=== PATIENT | male | born 1950 | race Caucasian/White ===

== ENCOUNTER → 2018-03-28 | Outpatient (CLI) | payer SELFPAY ==
[~2018-03-28] MED LIST: CATHETER FLUSH 10 ML SYR IV PRN; IOHEXOL 350 MG/ML 100 ML (OMNIPAQUE 350) VIAL IV ONE; NS 250 ML (IVPB) BAG IV ONE
--- NOTE | 2018-03-28 14:28 | Diagnostic Imaging Report ---
PROCEDURE: CT pelvis with contrast. TECHNIQUE: Oral and intravenous contrast were administered with pelvic CT performed. DATE: March 28, 2018. INDICATION: 67-year-old male, prostatitis. Pain in the region of the prostate gland. COMPARISON: November 26, 2014. FINDINGS: The visualized segments of the intestinal tract are not distended. There is a moderate-volume colonic stool. There is no identified free intraperitoneal air. There is no identified drainable fluid collection. There is no large-volume free pelvic fluid. There are atherosclerotic calcifications. There is no identified abnormally enlarged lymph node within the visualized portions of the abdomen or pelvis, which meets CT size criteria for adenopathy. The prostate gland is not well evaluated on CT. There is no identified fluid collection within or subjacent to the prostate gland. The urinary bladder is underdistended and not well evaluated. Partially visualized portions of the liver and kidneys are unremarkable in appearance. There is chondrocalcinosis. 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 There is no identified acute bone abnormality. IMPRESSION: 1. Limited evaluation of the prostate gland on CT. There is no identified fluid collection within or subjacent to the prostate gland or otherwise noted. 2. No acute abnormality identified within the pelvis. 3. Moderate-volume colonic stool. 4. The urinary bladder is underdistended and not well evaluated. Dictated by: Dictated on workstation # [id number]
== END ==
LOC: RAD 12:44
PROVIDERS: ATTEND Nurse Practitioner Community Health
DX: N41.1 Chronic prostatitis (principal)
CPT/HCPCS: 72193

== ENCOUNTER 2018-06-01 00:36 | Emergency (ER) | payer SELFPAY ==
[~2018-06-01] VITALS: Ht 180.3 cm; Wt 63.5 kg
--- OUTSIDE RECORDS SUMMARY | 2018-06-01 00:41 | XMS REPORT ---
Author Author KAMLA MAS Organization [employer] Address Unknown Phone Unavailable Care Team Providers Care Ambulatory Service Representative Name Role Phone KAMLA MAS CP Unavailable Allergies, Adverse Reactions, Alerts Substance Reaction Event Type Ampicillin Info Not Available Drug Allergy Problems Problem Type Condition ICD-9 Code Onset Dates Condition Status Problem External hemorrhoids without mention of complication 455.3 Active Problem Contact or exposure to other viral diseases V01.79 Active Problem Screening examination for venereal disease V74.5 Active Assessment Hypertrophy (benign) of prostate without urinary obstruction and other lower urinary tract symptoms [LUTS] 600.00 Active Problem Impotence of organic origin 607.84 Active Problem Hypertrophy (benign) of prostate without urinary obstruction and other lower urinary tract symptoms [LUTS] 600.00 Active 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 Problem Unspecified prostatitis 601.9 Active Problem Pain in joint, shoulder region 719.41 Active Problem Family history of unspecified malignant neoplasm V16.9 Active Problem Unspecified orchitis and epididymitis 604.90 Active Medications Medication Code System Code Instructions Start Date End Date Status Dosage Flomax [facility] 56697957937 0.4 MG 1 capsule by Oral route 1 time per day Procedures Procedure Coding System Code Date COMPREHEN METABOLIC PANEL CPT-4 44344 Jun 04, 2015 VENIPUNCT, ROUTINE* CPT-4 39214 Jun 04, 2015 ASSAY OF PSA, TOTAL CPT-4 52674 Jun 04, 2015 Office Visit, Est Pt., Level 3 CPT-4 20629 Jun 04, 2015 Vital Signs Date/Time: Jun 04, 2015 Temperature 97.6 F Weight 143.8 lbs Height 73 in BMI 18.97 Index Blood Pressure Diastolic 78 mmHg Blood Pressure Systolic 120 mmHg Cardiac Monitoring Heart Rate 70 bpm Results Name Result Date Reference Range Unit Abnormality Flag PSA Summary Purpose [employer] Submission
--- OUTSIDE RECORDS SUMMARY | 2018-06-01 00:41 | XMS REPORT ---
Author Author CLEO DUQUE Organization [facility] Address [address] [place] [address] Care Team Providers Care Resizer Operator Name Role Phone CLEO DUQUE Unavailable PROBLEMS Type Condition ICD9-CM Code XKU31-MM Code Onset Dates Condition Status SNOMED Code Problem Prostatitis, chronic N41.1 Active 00074958 Problem Benign prostatic hyperplasia, unspecified whether lower urinary tract symptoms present N40.0 Active 270922897 Problem Arthritis M19.90 Active 7242453 Problem Benign non-nodular prostatic hyperplasia with lower urinary tract symptoms N40.1 Active 038025803 ALLERGIES Substance Reaction Event Type Date Status Penicillin V Potassium rash Drug Allergy January, Active ENCOUNTERS Encounter Location Date Diagnosis [place] [address] [id number] [place] [address]22 Apr, [address] [address] Feb, Prostatitis, chronic N41.1 and Weight loss R63.4 [place] [id number] [place] [address] 25395- 9714 January, Benign prostatic hyperplasia, unspecified whether lower urinary tract symptoms present N40.0 ; Acute prostatitis N41.0 and Exposure to hepatitis C Z20.5 [facility] IN [place] [id number] [place] [address]8712 -5825 Aug, URI, acute J06.9 and Cough in adult patient R05 [facility] IN [place] [id number] [place] [address] 90733 -7880 Apr, Encounter for immunization Z23 and Laceration without foreign body of right little finger without damage to nail, initial encounter S61.216A [facility] [place] [id number] [place] [address] 73842 -7091 Feb, Left wrist pain M25.532 [facility] IN [facility] [id number] [place] [address] 86391 -0339 Nov, Arthritis M19.90 [facility] [id number] [place] [address] 45847- 9225 Jun, Benign non-nodular prostatic hyperplasia with lower urinary tract symptoms N40.1 and Prostatitis, unspecified prostatitis type N41.9 [place] [id number] [place] [address] 12251- 4811 08 May, 2016 Prostatitis, unspecified prostatitis type N41.9 [place] [id number] [place] [address] 50603- 5244 Aug, Restless legs syndrome G25.81 ; Myoclonus G25.3 and Folate deficiency E53.8 [place] [address] [address] Aug, [facility] [id number] [place] [address] 36689 -0326 Jul, Ankle pain, right M25.571 [place] [id number] [place] [address] 88704- 0006 Jul, Benign non-nodular prostatic hyperplasia with lower urinary tract symptoms N40.1 and Restless leg syndrome G25.81 [place] [id number] [place] [address] 19030- 9460 16 May, 2015 Hypertrophy (benign) of prostate without urinary obstruction and other lower urinary tract symptoms [LUTS] 600.00 [place] [id number] [place] [address] 73287- 9331 January, [place] [id number] [place] [address] 05671- 7569 14 Dec, 2014 [place] [id number] [place] [address] 92626- 7982 Dec, [facility] [place] [facility] [address] [id number] [place] [address] 4[address] Oct, 2014 [facility] [place] [facility] [address] [id number] [place] [address] Oct, [facility] [place] [facility] [address] [id number] [place] [address] 0606 Oct, [facility] [place] [facility] [address] [id number] [place] [address]- 1382 Oct, [facility] [place] [facility] [address] [id number] [place] [address] 8362 Oct, [facility] [place] [facility] [address] [id number] [place] [address] 2000 Sep, [facility] [place] [facility] [address] [id number] [place] [address]- 4432 Sep, [facility] [place] [facility] [address] [id number] [place] [address]- 2702 Sep, [facility] [place] [facility] [address] [id number] [place] [address]- 9864 Sep, [facility] [place] [facility] [address] [id number] [place] [address]- 8067 Aug, [facility] [place] [facility] [address] [id number] [place] [address] 4845 Aug, [facility] [place] [facility] [address] [id number] [place] [address]- 8303 Aug, [facility] [place] [facility] [address] [id number] [place] [address] 9972 Aug, [facility] [place] [facility] [address] [id number] [place] [address]- 9808 Jul, [facility] [place] [facility] [address] [id number] [place] Jul, [facility] [place] [facility] [address] [id number] [address] Apr, [facility] [id number] Apr, [facility] [id number] [address] Apr, [facility] [id number] [address] Apr, [facility] [address] Mar, [facility] [id number] [address] Mar, [facility] [id number] Mar, [facility] [address] [address] Mar, [facility] [id number], [place] [address] Mar, [facility] [id number] [address] 18[address] Mar, IMMUNIZATIONS No Known Immunizations SOCIAL HISTORY Never Assessed REASON FOR VISIT prostate exam [facility] PLAN OF CARE VITAL SIGNS Height 73 in 2018-01-18 Weight 149.7 lbs 2018-01-18 Temperature 97.8 degrees Fahrenheit 2018-01-18 Heart Rate 80 bpm 2018-01-18 Respiratory Rate 20 2018-01-18 BMI 19.75 kg/m2 2018-01-18 Blood pressure systolic 124 mmHg 2018-01-18 Blood pressure diastolic 74 mmHg 2018-01-18 MEDICATIONS Medication Instructions Dosage Frequency Start Date End Date Duration Status Bactrim DS 800-160 MG Orally Twice a day 1 tablet 12h January, Feb, 30 days Active Finasteride 5 mg Orally Once a day 1 tablet 24h January, May, 30 day(s) Active Flomax 0.4 MG 1 capsule by Oral route 1 time per day 24h Active RESULTS No Results PROCEDURES Procedure Date Ordered Result Body Site ASSAY OF PSA, TOTAL January 18, 2018 COMPREHEN METABOLIC PANEL January 18, 2018 COMPLETE CBC W/AUTO DIFF WBC January 18, 2018 No Charge January 18, 2018 INSTRUCTIONS MEDICATIONS ADMINISTERED No Known Medications MEDICAL (GENERAL) HISTORY Type Description Date Medical History Patient denies medical hx Surgical History appendectomy Surgical History tonsillectomy Surgical History Teeth removed
--- OUTSIDE RECORDS SUMMARY | 2018-06-01 00:41 | XMS REPORT | Clinical Summary ---
Author Author [facility] Organization [facility] Address Unknown Phone Unavailable Care Team Providers Care Counter Clerk [employer] Name Role Phone Rudolph Bragg DO Unavailable Yari Antonio MA Unavailable Unavailable Melissa Taylor APRN Unavailable Shun Donohue MD Unavailable Source Comments Some departments are not documenting in the electronic medical record. If you do not see the information that you expected, contact Release of Information in the Health Information Management department at [phone] for further assistance in locating additional records.[facility] Allergies Active Allergy Reactions Severity Noted Date Comments Penicillins HIVES 09/27/2012 Welts too Current Medications Prescription Sig. Disp. Refills Start End Date Status Date amitriptyline (ELAVIL) 50 Take 50 mg by mouth at Active mg tablet bedtime daily. mirtazapine (REMERON) 30 Take 30 mg by mouth at Active mg tablet bedtime daily. levofloxacin (LEVAQUIN) Take 500 mg by mouth Active 500 mg tablet daily. VARDENAFIL HCL (LEVITRA Take by mouth. Active PO) PE/HYDROCOD/ACETAMINOPHEN Take by mouth. Active /CPM ([id number]-ACETAMIN OPHEN PO) finasteride (PROSCAR) 5 Take 5 mg by mouth daily. Active mg tablet Active Problems Problem Noted Date Prostatitis 12/31/2014 Overview: CT Pelvis 11/26/14: prominent prostate and SVs w/o inflammation Scrotal US 09/04/14: trace left hydrocele, otherwise normal exam Family History Medical History Relation Name Comments Brain Tumor Other Hypertension Other Relation Name Status Comments Other Social History Tobacco Use Types Packs/Day Years Used Date Current Every Day Smoker Cigarettes 1 Smokeless Tobacco: Never Used Tobacco Cessation: Ready to Quit: No; Counseling Given: No Alcohol Use Drinks/Week oz/Week Comments Yes 1-2 Standard 0.5 - 1.0 occ drinks or equivalent Sex Assigned at Date Recorded Not on file Last Filed Vital Signs Vital Sign Reading Time Taken Blood Pressure 108/70 12/31/2014 1:15 PM CDT Pulse 78 12/31/2014 1:15 PM CDT Temperature 37.1 C (98.7 F) 03/12/2013 1:56 PM CDT Respiratory Rate - - Oxygen Saturation - - Inhaled Oxygen - - Concentration Weight 68.9 kg (152 lb) 12/31/2014 1:15 PM CDT Height 185.4 cm (6' 1") 12/31/2014 1:15 PM CDT Body Mass Index 20.05 12/31/2014 1:15 PM CDT Plan of Treatment Health Maintenance Due Date Last Done Comments HEPATITIS C SCREENING 1951 PHYSICAL (COMPREHENSIVE) 1958 EXAM PERTUSSIS VACCINE 1962 TETANUS VACCINE 1968 COLORECTAL CANCER 2001 SCREENING SHINGLES RECOMBINANT 2001 VACCINE (1 of 2) ABDOMINAL AORTIC ANEURYSM 2016 SCREENING PNEUMONIA (PCV13/PPSV23) 2016 VACCINES (1 of 2 - PCV13) INFLUENZA VACCINE 06/19/2018 Results Not on filefrom Last 3 Months
--- OUTSIDE RECORDS SUMMARY | 2018-06-01 00:41 | XMS REPORT ---
Author Author CLEO DUQUE Organization [facility] Address [address] [place] [address] Care Team Providers Care Learning Operations Specialist Name Role Phone CLEO DUQUE Unavailable PROBLEMS Type Condition ICD9-CM Code EGN63-PF Code Onset Dates Condition Status SNOMED Code Problem Prostatitis, chronic N41.1 Active 17752443 Problem Benign prostatic hyperplasia, unspecified whether lower urinary tract symptoms present N40.0 Active 820545624 Problem Arthritis M19.90 Active 3149224 Problem Benign non-nodular prostatic hyperplasia with lower urinary tract symptoms N40.1 Active 869685184 ALLERGIES Substance Reaction Event Type Date Status Penicillin V Potassium rash Drug Allergy Feb, Active ENCOUNTERS Encounter Location Date Diagnosis [place] [id number] [place] [address]07[address]778 May, [address] [address] Feb, Prostatitis, chronic N41.1 and Weight loss R63.4 [place] [id number] [place] [address] 47880- 7291 January, Benign prostatic hyperplasia, unspecified whether lower urinary tract symptoms present N40.0 ; Acute prostatitis N41.0 and Exposure to hepatitis C Z20.5 [facility] [address] [place] [id number] [place] [address] -[address]37 Aug, URI, acute J06.9 and Cough in adult patient R05 [facility] [place] [id number] [place] [address] 29625 -4052 Apr, Encounter for immunization Z23 and Laceration without foreign body of right little finger without damage to nail, initial encounter S61.216A [facility] [place] [id number] [place] [address] 39186 -5873 Feb, Left wrist pain M25.532 [facility] [id number] [place] [address] 83312 -1681 Nov, Arthritis M19.90 [facility] [id number] [place] [address] 89517- 2631 Jun, Benign non-nodular prostatic hyperplasia with lower urinary tract symptoms N40.1 and Prostatitis, unspecified prostatitis type N41.9 [place] [id number] [place] [address] 20477- 3837 08 May, 2016 Prostatitis, unspecified prostatitis type N41.9 [place] [id number] [place] [address] 21636- 0328 Aug, Restless legs syndrome G25.81 ; Myoclonus G25.3 and Folate deficiency E53.8 [place] [address] [address] Aug, [facility] [id number] [place] [address] 00462 -7681 Jul, Ankle pain, right M25.571 [place] [id number] [place] [address] 02010- 8367 Jul, Benign non-nodular prostatic hyperplasia with lower urinary tract symptoms N40.1 and Restless leg syndrome G25.81 [place] [id number] [place] [address] 18818- 7868 16 May, 2015 Hypertrophy (benign) of prostate without urinary obstruction and other lower urinary tract symptoms [LUTS] 600.00 [place] [id number] [place] [address]22- 8084 January, [place] [address] [address] [id number] [place] [address] 08865- 0325 14 Dec, 2014 [place] [id number] [place] [address] 66993- 9456 Dec, [facility] [place] [facility] [address] [id number] [place] [address]- 0203 Oct, 2014 [facility] [place] [facility] [address] [id number] [place] [address] Oct, [facility] [place] [facility] [address] [id number] [place] [address]- 2625 Oct, [facility] [place] [facility] [address] [id number] [place] [address]- 9593 Oct, [facility] [place] [facility] [address] [id number] [place] [address]- 7649 Oct, [facility] [place] [facility] [address] [id number] [place] [address]- 0370 Sep, [facility] [place] [facility] [address] [id number] [place] [address]- 6474 Sep, [facility] [place] [facility] [address] [id number] [place] [address]- 3483 Sep, [facility] [place] [facility] [address] [id number] [place] [address]- 5090 Sep, [facility] [place] [facility] [address] [id number] [place] [address]- 1379 Aug, [facility] [place] [facility] [address] [id number] [place] [address]- 5304 Aug, [facility] [place] [facility] [address] [id number] [place] [address]- 8916 Aug, [facility] [place] [facility] [address] [id number] [place] [address]- 0814 Aug, [facility] [place] [facility] [address] [id number] [place] [address]- 2334 Jul, [facility] [place] [facility] [address] [id number] [place] [address] Jul, [facility] [place] [facility] [address] [id number], [place] [address] 0[address] Apr, [facility] [address] [place] [address] [id number] [address] Apr, [facility] [address], [place] [address]- 288[address] Apr, [facility] [address], [place] [address]- [address] Apr, [facility] [address], [place] [address]- [address] Mar, [facility] [address] Mar, [facility] [address], [place] [address]- 7747 Mar, [facility] [address], [place] [address]- 1585 Mar, [facility] [address], [place] [address]- 0485 Mar, [facility] [id number], [place] [address]- 1457 Mar, IMMUNIZATIONS No Known Immunizations SOCIAL HISTORY Never Assessed REASON FOR VISIT Prostate F/U, PT states his "prostate is not any better" -[facility] PLAN OF CARE VITAL SIGNS Height 73 in 2018-03-08 Weight 138.3 lbs 2018-03-08 Temperature 98.7 degrees Fahrenheit 2018-03-08 Heart Rate 72 bpm 2018-03-08 Respiratory Rate 2018-03-08 BMI 18.24 kg/m2 2018-03-08 Blood pressure systolic 130 mmHg 2018-03-08 Blood pressure diastolic 72 mmHg 2018-03-08 MEDICATIONS Medication Instructions Dosage Frequency Start Date End Date Duration Status Flomax 0.4 MG 1 capsule by Oral route 1 time per day 24h Active Finasteride 5 mg Orally Once a day 1 tablet 24h January, May, 30 day(s) Active RESULTS No Results PROCEDURES Procedure Date Ordered Result Body Site COMPREHEN METABOLIC PANEL March 08, 2018 VENIPUNCT, ROUTINE* March 08, 2018 INSTRUCTIONS MEDICATIONS ADMINISTERED No Known Medications MEDICAL (GENERAL) HISTORY Type Description Date Medical History Patient denies medical hx Surgical History appendectomy Surgical History tonsillectomy Surgical History Teeth removed
--- OUTSIDE RECORDS SUMMARY | 2018-06-01 00:42 | XMS REPORT ---
Author Author RENETTA MERRITT Organization 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 559814617 Problem Screening examination for venereal disease V74.5 Active 125643590 Problem Family history of unspecified malignant neoplasm V16.9 Active 603170692 Problem Contact or exposure to other viral diseases V01.79 Active 814554724566284 Problem Arthritis M19.90 Active 6196358 Problem Benign non-nodular prostatic hyperplasia with lower urinary tract symptoms N40.1 Active 138261831 Problem Unspecified prostatitis 601.9 Active 2763936 Problem Unspecified orchitis and epididymitis 604.90 Active 532114669 Problem External hemorrhoids without mention of complication 455.3 Active 06032346 Problem Hypertrophy (benign) of prostate without urinary obstruction and other lower urinary tract symptoms [LUTS] 600.00 Active 144489807 ALLERGIES Substance Reaction Event Type Date Status Penicillin V Potassium rash Drug Allergy Feb, Active SOCIAL HISTORY Never Assessed PLAN OF CARE Activity Details Follow Up prn Reason: VITAL SIGNS Height 73 in 2017-02-20 Weight 140.2 lbs 2017-02-20 Temperature 98.4 degrees Fahrenheit 2017-02-20 Heart Rate 84 bpm 2017-02-20 Respiratory Rate 22 2017-02-20 BMI 18.50 kg/m2 2017-02-20 Blood pressure systolic 132 mmHg 2017-02-20 Blood pressure diastolic 76 mmHg 2017-02-20 MEDICATIONS Medication Instructions Dosage Frequency Start Date End Date Duration Status Flomax 0.4 MG 1 capsule by Oral route 1 time per day 24h Active RESULTS No Results PROCEDURES Procedure Date Ordered Result Body Site X-RAY EXAM OF WRIST February 20, 2017 TORADOL (IM) 60 MG/2ML (UP TO 15 MG) February 20, 2017 THER/PROPH/DIAG INJ, SC/IM February 20, 2017 IMMUNIZATIONS Vaccine Route Administration Date Status TORADOL (IM) 60 MG/2ML (UP TO 15 MG) IM Intramuscular February 20, 2017 Administered MEDICAL (GENERAL) HISTORY Type Description Date Medical History Patient denies medical hx Surgical History appendectomy Surgical History tonsillectomy Surgical History Teeth removed
--- OUTSIDE RECORDS SUMMARY | 2018-06-01 00:42 | XMS REPORT ---
Author Author MOLLY MATHIS [facility] eClinicalWorks Address Unknown Phone Unavailable Care Team Providers Care Banana Ripening Room Supervisor Name Role Phone MOLLY MATHIS Unavailable Allergies, Adverse Reactions, Alerts Substance Reaction Event Type Ampicillin Info Not Available Drug Allergy Problems Problem Type Condition Code Onset Dates Condition Status Problem External hemorrhoids without mention of complication 455.3 Active Problem Contact or exposure to other viral diseases V01.79 Active Problem Screening examination for venereal disease V74.5 Active Assessment Ankle pain, right M25.571 Active Problem Impotence of organic origin 607.84 [...] Instructions Start Date End Date Status Dosage Neurontin [facility] [address]-40 100 MG Orally 2 times a day Jul 25, 2015 1 capsule B-6 Folic Acid [facility] [address]-36 1 mg Orally Once a day Jul 25, 2015 as directed Ibuprofen NDC 0 not defined Flomax [facility] 71242622084 0.4 MG 1 capsule by Oral route 1 time per day Naprosyn [facility] [address]-48 500 MG Orally every 12 hrs, prn Aug 15, 2015 Sep 14, 2015 1 tablet as needed Procedures Procedure Coding System Code Date Office Visit, Est Pt., Level 3 CPT-4 45209 Aug 15, 2015 Pneumati walking boot prefab CPT-4 L4360 Aug 15, 2015 X-RAY EXAM OF ANKLE CPT-4 73036 Aug 15, 2015 Vital Signs Date/Time: Aug 15, 2015 Temperature 98.4 F Weight 148.2 lbs Height 73 in BMI 19.55 Index Blood Pressure Diastolic 80 mmHg Blood Pressure Systolic 112 mmHg Cardiac Monitoring Heart Rate 80 bpm Results No Known Results Summary Purpose eClinicalWorks Submission
--- OUTSIDE RECORDS SUMMARY | 2018-06-01 00:42 | XMS REPORT ---
Author Author [facility]LLY [facility]ARAZA [facility] Address [address] [place] [address] Care Team Providers Care Gin Inspector Name Role Phone KELLY BARRAZA Unavailable PROBLEMS Type Condition ICD9-CM Code NJR85-YZ Code Onset Dates Condition Status SNOMED Code Problem Benign prostatic hyperplasia, unspecified whether lower urinary tract symptoms present N40.0 Active 765216147 Problem Arthritis M19.90 Active 9508547 Problem Benign non-nodular prostatic hyperplasia with lower urinary tract symptoms N40.1 Active 473528464 ALLERGIES Substance Reaction Event Type Date Status Penicillin V Potassium rash Drug Allergy Aug, Active ENCOUNTERS Encounter Location Date Diagnosis [facility] [id number] [place] [address] Feb, [facility] [address] [place] [id number] [place] [address]70[address] 7383 January, Benign prostatic hyperplasia, unspecified whether lower urinary tract symptoms present N40.0 ; Acute prostatitis N41.0 and Exposure to hepatitis C Z20.5 [facility] [address] [place] [id number] [place] [address] Aug, URI, acute J06.9 and Cough in adult patient R05 [facility] [id number] [place] [address]36 Apr, Encounter for immunization Z23 and Laceration without foreign body of right little finger without damage to nail, [facility] [id number] [place] [address] Feb, Left wrist pain M25.532 [facility] [address] [place] [id number] [place] [address]47 Nov, Arthritis M19.90 [facility] [id number] [place] [address] 22624- 2381 Jun, Benign non-nodular prostatic hyperplasia with lower urinary tract symptoms N40.1 and Prostatitis, unspecified prostatitis type N41.9 [facility] [id number] [place] [address] 57[address]- 4106 08 May, 2016 Prostatitis, unspecified prostatitis type N41.9 [facility] [id number] [place] [address] 49595- 3018 Aug, Restless legs syndrome G25.81 ; Myoclonus G25.3 and Folate deficiency E53.8 [place] [id number] [place] [address] 87408- 4372 Aug, [facility] [id number] [place] [address] Jul, Ankle pain, right M25.571 [place] [id number] [place] [address] 30489- 5246 Jul, Benign non-nodular prostatic hyperplasia with lower urinary tract symptoms N40.1 and Restless leg syndrome G25.81 [place] [id number] [place] [address] 73925- 3584 16 May, 2015 Hypertrophy (benign) of prostate without urinary obstruction and other lower urinary tract symptoms [LUTS] 600.00 [place] [id number] [place] [address] 34909- 3957 January, [place] [id number] [place] [address]21- 5166 Dec, [place] [id number] [place] [address] 28766- 7887 Dec, [place] [id number] [place] [address] 50910- 1447 Oct, [place] [address] [address] Oct, [facility] [place] [facility] [address] [id number] [place] [address] Oct, [facility] [place] [facility] [address] [id number] [place] [address] Oct, [facility] [place] [facility] [address] [id number] [place] [address] 6976 Oct, [facility] [place] [facility] [address] [id number] [place] [address] Sep, [facility] [place] [facility] [address] [id number] [place] [address] Sep, [facility] [place] [facility] [address] [id number] [place] [address] 73[address] Sep, [facility] [place] [facility] [address] [id number] [place] [address]26 Sep, [facility] [place] [facility] [address] [id number] [place] [address] Aug, [facility] [place] [facility] [address] [id number] [place] [address] 4728 Aug, [facility] [place] [facility] [address] [facility] [id number] [place] [address] 295[address] Aug, [facility] [place] [facility] [address] [id number] [place] [address] 1459 Aug, [facility] [place] [facility] [address] [id number] [place] [address] 74[address] Jul, [facility] [place] [facility] [address] [id number] [place] [address] Jul, [facility] [place] [facility] [address] [id number] [place] [address] Apr, [facility] [place] [facility] [address] [id number] [place] Apr, [facility] [address] [facility] [id number] [address] Apr, [facility] [address] [id number] [address] Apr, [facility] [address] [facility] [id number] [address] Mar, [facility] [address] [address] Mar, [facility] [address] [id number] [address] Mar, [facility] [address] [address] Mar, [facility] [address] [id number] [address] Mar, [facility] [address] [id number], [place] [address] Mar, IMMUNIZATIONS No Known Immunizations SOCIAL HISTORY Never Assessed REASON FOR VISIT cough, head and chest congestion. been sick for a month. belinda PLAN OF CARE Activity Details Follow Up prn Reason: VITAL SIGNS Height 73 in 2017-08-19 Weight 140.0 lbs 2017-08-19 Temperature 98.5 degrees Fahrenheit 2017-08-19 Heart Rate 78 bpm 2017-08-19 Respiratory Rate 20 2017-08-19 BMI 18.47 kg/m2 2017-08-19 Blood pressure systolic 126 mmHg 2017-08-19 Blood pressure diastolic 78 mmHg 2017-08-19 MEDICATIONS Medication Instructions Dosage Frequency Start Date End Date Duration Status Azithromycin 250 MG Orally Once a day 2 tablets on the first day, then 1 tablet daily for 4 days 24h Aug, Aug, 5 day(s) Active Tessalon Perles 100 MG Orally Three times a day 1 capsule as needed 8h Aug, Aug, 14 days Active Flomax 0.4 MG 1 capsule by Oral route 1 time per day 24h Active Flomax 0.4 MG TAKE ONE CAPSULE BY MOUTH ONCE DAILY 30 Active RESULTS No Results PROCEDURES No Known procedures INSTRUCTIONS MEDICATIONS ADMINISTERED No Known Medications MEDICAL (GENERAL) HISTORY Type Description Date Medical History Patient denies medical hx Surgical History appendectomy Surgical History tonsillectomy Surgical History Teeth removed
--- OUTSIDE RECORDS SUMMARY | 2018-06-01 00:42 | XMS REPORT ---
Author Author CLEO DUQUE Organization eClinicalWorks Address Unknown Phone Unavailable Care Team Providers Care Counter Waiter Name Role Phone CLEO DUQUE CP Unavailable Allergies, Adverse Reactions, Alerts Substance Reaction Event Type Ampicillin Info Not Available Drug Allergy Problems Problem Type Condition Code Onset Dates Condition Status Problem External hemorrhoids without mention of complication 455.3 Active Problem Contact or exposure to other viral diseases V01.79 Active Problem Screening examination for venereal disease V74.5 Active Problem Impotence of organic origin 607.84 Active Problem Hypertrophy (benign) of prostate without urinary obstruction and other lower urinary tract symptoms [LUTS] 600.00 Active 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 Problem Unspecified prostatitis 601.9 Active Problem Pain in joint, shoulder region 719.41 Active Problem Family history of unspecified malignant neoplasm V16.9 Active Problem Unspecified orchitis and epididymitis 604.90 Active Assessment Folate deficiency E53.8 Active Assessment Myoclonus G25.3 Active Assessment Restless legs syndrome G25.81 Active Medications Medication Code System Code Instructions Start Date End Date Status Dosage Flomax [facility] [address]-29 0.4 MG Once a day 1 capsule by Oral route 1 time per day Naprosyn [facility] [address]-80 500 MG Orally every 12 hrs, prn Aug 15, 2015 Sep 14, 2015 1 tablet as needed Ibuprofen NDC 0 not defined Neurontin [facility] [address]-87 100 MG Orally 2 times a day Jul 25, 2015 1 capsule B-6 Folic Acid [facility] [address]-06 1 mg Orally Once a day Jul 25, 2015 as directed Procedures Procedure Coding System Code Date Office Visit, Est Pt., Level 3 CPT-4 30732 Aug 25, 2015 Vital Signs Date/Time: Aug 25, 2015 Temperature 98.0 F Weight 150 lbs Height 73 in BMI 19.79 Index Blood Pressure Diastolic 78 mmHg Blood Pressure Systolic 138 mmHg Cardiac Monitoring Heart Rate 78 bpm Results No Known Results Summary Purpose eClinicalWorks Submission
--- OUTSIDE RECORDS SUMMARY | 2018-06-01 00:42 | XMS REPORT ---
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 Problem Impotence of organic origin 607.84 Active Problem Benign non-nodular prostatic hyperplasia with lower urinary tract symptoms N40.1 Active Problem Unspecified orchitis and epididymitis 604.90 Active Problem Unspecified prostatitis 601.9 Active Problem Hypertrophy (benign) of prostate without urinary obstruction and other lower urinary tract symptoms [LUTS] 600.00 Active Problem Family history of unspecified malignant neoplasm V16.9 Active Assessment Prostatitis, unspecified prostatitis type N41.9 Active Assessment Benign non-nodular prostatic hyperplasia with lower urinary tract symptoms N40.1 Active Problem External hemorrhoids without mention of complication 455.3 Active Medications Medication Code System Code Instructions Start Date End Date Status Dosage Flomax [facility] [address]-47 0.4 MG Once a day 1 capsule by Oral route 1 time per day Ibuprofen NDC 0 not defined B-[address] [facility] [address]-62 1 mg Orally Once a day Jul 25, 2015 as directed [place] [facility] [address]-91 10-325 MG Orally every 6 hrs Jul 16, 2016 1 tablet as needed Procedures Procedure Coding System Code Date COMPLETE CBC W/AUTO DIFF WBC CPT-4 46282 Jul 16, 2016 ASSAY OF PSA, TOTAL CPT-4 58519 Jul 16, 2016 Office Visit, Est Pt., Level 3 CPT-4 73480 Jul 16, 2016 COMPREHEN METABOLIC PANEL CPT-4 60050 Jul 16, 2016 LIPID PANEL CPT-4 39501 Jul 16, 2016 VENIPUNCT, ROUTINE* CPT-4 27050 Jul 16, 2016 Vital Signs Date/Time: Jul 16, 2016 Cardiac Monitoring Heart Rate 68 bpm Weight 143.5 lbs Height 73 in BMI 18.93 Index Blood Pressure Diastolic 80 mmHg Blood Pressure Systolic 128 mmHg Results Name Result Date Reference Range Unit Abnormality Flag PSA ----Prostate Specific Ag, Serum 0.8 84209414 0.0-4.0 ng/mL LIPID PANEL ----LDL Cholesterol Calc 100 63407640 0-99 mg/dL H ----VLDL Cholesterol Jj 20 31240498 5-40 mg/dL ----Cholesterol, Total 165 30908723 100-199 mg/dL ----HDL Cholesterol 45 61122261 >39 mg/dL ----Triglycerides 100 71299122 0-149 mg/dL ROUTINE VENIPUNCTURE CBC ----MCHC 32.8 88710224 31.5-35.7 g/dL ----MCH 32.1 09716702 26.6-33.0 pg ----Platelets 238 36840776 150-379 x10E3/uL ----RDW 13.4 67467001 12.3-15.4 % ----Immature Granulocytes 0 62434047 % ----Immature Grans (Abs) 0.0 86068025 0.0-0.1 x10E3/uL ----Lymphs 22 00185256 % ----Monocytes 8 18025669 % ----Neutrophils 69 79678639 % ----Neutrophils (Absolute) 3.8 56508701 1.4-7.0 x10E3/uL ----Hematocrit 46.0 99994275 37.5-51.0 % ----Lymphs (Absolute) 1.2 07626441 0.7-3.1 x10E3/uL ----MCV 98 82521220 79-97 fL H ----RBC 4.71 76043706 4.14-5.80 x10E6/uL ----Eos 1 84836571 % ----Basos 0 12656476 % ----Hemoglobin 15.1 80317322 12.6-17.7 g/dL ----Baso (Absolute) 0.0 44032713 0.0-0.2 x10E3/uL ----WBC 5.6 05335356 3.4-10.8 x10E3/uL ----Monocytes(Absolute) 0.4 15621763 0.1-0.9 x10E3/uL ----Eos (Absolute) 0.1 20741010 0.0-0.4 x10E3/uL CMP ----Potassium, Serum 4.5 79176249 3.5-5.2 mmol/L ----Sodium, Serum 142 79534508 136-144 mmol/L ----BUN/Creatinine Ratio 12 [id number] ----eGFR If Africn Am 99 28875982 >59 mL/min/1.73 ----eGFR If NonAfricn Am 85 13312437 >59 mL/min/1.73 ----Creatinine, Serum 0.94 38887666 0.76-1.27 mg/dL ----BUN 11 20160716 8-27 mg/dL ----Glucose, Serum 89 03656062 65-99 mg/dL ----AST (SGOT) 13 04064055 0-40 IU/L ----Globulin, Total 2.3 57333966 1.5-4.5 g/dL ----ALT (SGPT) 17 20160716 0-44 IU/L ----A/G Ratio 1.7 57287687 1.1-2.5 ----Bilirubin, Total 0.4 65381156 0.0-1.2 mg/dL ----Alkaline Phosphatase, S 91 06366447 39-117 IU/L ----Carbon Dioxide, Total 27 95121362 18-29 mmol/L ----Calcium, Serum 9.0 48370815 8.6-10.2 mg/dL ----Protein, Total, Serum 6.1 11238076 6.0-8.5 g/dL ----Albumin, Serum 3.8 04668060 3.6-4.8 g/dL ----Chloride, Serum 101 75292705 97-106 mmol/L Summary Purpose eClinicalWorks Submission
--- OUTSIDE RECORDS SUMMARY | 2018-06-01 00:42 | XMS REPORT ---
Author Author CLEO DUQUE [facility] Address [address] [place] [address] Care Team Providers Care Manager Country Name Role Phone CLEO DUQUE Unavailable PROBLEMS Type Condition ICD9-CM Code NVP04-XE Code Onset Dates Condition Status SNOMED Code Problem Screening examination for venereal disease V74.5 Active 123802451 Problem Pain in joint, shoulder region 719.41 Active 459470102 Problem Contact or exposure to other viral diseases V01.79 Active 462026259813710 Assessment Prostatitis, unspecified prostatitis type N41.9 May, Active 8988857 Problem External hemorrhoids without mention of complication 455.3 Active 02598263 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 406654811 Problem Impotence of organic origin 607.84 Active 401437128 Problem Unspecified orchitis and epididymitis 604.90 Active 856818618 Problem Unspecified prostatitis 601.9 Active 3780868 Problem Hypertrophy (benign) of prostate without urinary obstruction and other lower urinary tract symptoms [LUTS] 600.00 Active 273804175 Problem Family history of unspecified malignant neoplasm V16.9 Active 045443277 ALLERGIES Substance Reaction Event Type Date Status Amoxicillin Unknown Drug Allergy May, Active SOCIAL HISTORY No smoking Hx information available PLAN OF CARE VITAL SIGNS Height 73 in 2016-05-27 Weight 144.6 lbs 2016-05-27 Heart Rate 64 bpm 2016-05-27 Respiratory Rate 18 2016-05-27 BMI 19.08 kg/m2 2016-05-27 Blood pressure systolic 110 mmHg 2016-05-27 Blood pressure diastolic 88 mmHg 2016-05-27 MEDICATIONS Medication Instructions Dosage Frequency Start Date End Date Duration Status B-6 Folic Acid 1 mg Orally Once a day as directed 24h Jul, Active Neurontin 100 MG Orally 2 times a day 1 capsule 12h Jul, Active Ibuprofen Active [place] 5-325 MG Orally every 6 hrs 1 tablet as needed 6h May, Active Bactrim DS 800-160 MG Orally Twice a day 1 tablet 12h 08 May, 2016 Active Flomax 0.4 MG 1 capsule by Oral route 1 time per day 24h Active RESULTS No Results PROCEDURES Procedure Date Ordered Related Diagnosis Body Site Office Visit, Est Pt., Level 3 May 27, 2016 IMMUNIZATIONS No Known Immunizations
--- OUTSIDE RECORDS SUMMARY | 2018-06-01 00:42 | XMS REPORT ---
Author Author CLEO DUQUE Organization eClinicalWorks Address Unknown Phone Unavailable Care Team Providers Care Inside Sales Advisor Name Role Phone CLEO DUQUE CP Unavailable Allergies No Known Allergies Problems Problem Type Condition Code Onset Dates [...] Start Date End Date Status Dosage Flomax [facility] [address]-60 0.4 MG 1 capsule by Oral route 1 time per day Results No Known Results Summary Purpose eClinicalWorks Submission
--- OUTSIDE RECORDS SUMMARY | 2018-06-01 00:43 | XMS REPORT | Continuity of Care Document ---
Author Author [facility] Address Unknown Phone Unavailable Allergies Active Description Code Type Severity Reaction Onset Reported/Identified Relationship to Patient Clinical Status Yes ampicillin Drug Allergy N/A N/A 04/02/2014 Yes No Allergy Information Available [id number] Drug Allergy Unknown N/A 2014 Medications There is no data. Problems Date Dx Coded Attending Type Code Diagnosis Diagnosed By 04/02/2014 KAMLA MAS APRN 719.41 PAIN IN JOINT INVOLVING SHOULDER REGION 04/02/2014 KAMLA MAS APRN V01.79 CONTACT WITH OR EXPOSURE TO OTHER VIRAL DISEASES 04/02/2014 BRYCE HOOVER DO 719.41 PAIN IN JOINT INVOLVING SHOULDER REGION 04/02/2014 BRYCE HOOVER DO V01.79 CONTACT WITH OR EXPOSURE TO OTHER VIRAL DISEASES 04/02/2014 CLEO DUQUE APRN 719.41 PAIN IN JOINT INVOLVING SHOULDER REGION 04/02/2014 CLEO DUQUE APRN V01.79 CONTACT WITH OR EXPOSURE TO OTHER VIRAL DISEASES 04/02/2014 CLEO DUQUE APRN 719.41 PAIN IN JOINT INVOLVING SHOULDER REGION 04/02/2014 CLEO DUQUE APRN V01.79 CONTACT WITH OR EXPOSURE TO OTHER VIRAL DISEASES 04/02/2014 BRYCE HOOVER DO 719.41 PAIN IN JOINT INVOLVING SHOULDER REGION 04/02/2014 BRYCE HOOVER DO V01.79 CONTACT WITH OR EXPOSURE TO OTHER VIRAL DISEASES 04/02/2014 CLEO DUQUE APRN 719.41 PAIN IN JOINT INVOLVING SHOULDER REGION 04/02/2014 CLEO DUQUE APRN V01.79 CONTACT WITH OR EXPOSURE TO OTHER VIRAL DISEASES 04/02/2014 CLEO DUQUE APRN 719.41 PAIN IN JOINT INVOLVING SHOULDER REGION 04/02/2014 CLEO DUQUE APRN V01.79 CONTACT WITH OR EXPOSURE TO OTHER VIRAL DISEASES 04/26/2014 BRYCE HOOVER DO 600.00 HYPERTROPHY (BENIGN) OF PROSTATE WITHOUT URINARY OBSTRUCTION AND OTHER LOWER URINARY TRACT SYMPTOMS (LUTS) 04/26/2014 HOOVER DO, BRYCE K 607.84 IMPOTENCE OF ORGANIC ORIGIN 04/26/2014 HOOVER DO, BRYCE K 701.1 KERATODERMA ACQUIRED 04/26/2014 HOOVER DO, BRYCE K V16.9 FAMILY HISTORY OF UNSPECIFIED MALIGNANT NEOPLASM 04/26/2014 CLEO DUQUE APRN 600.00 HYPERTROPHY (BENIGN) OF PROSTATE WITHOUT URINARY OBSTRUCTION AND OTHER LOWER URINARY TRACT SYMPTOMS (LUTS) 04/26/2014 CLEO DUQUE APRN 607.84 IMPOTENCE OF ORGANIC ORIGIN 04/26/2014 CLEO DUQUE APRN 701.1 KERATODERMA ACQUIRED 04/26/2014 CLEO DUQUE APRN V16.9 FAMILY HISTORY OF UNSPECIFIED MALIGNANT NEOPLASM 04/26/2014 CLEO DUQUE APRN 600.00 HYPERTROPHY (BENIGN) OF PROSTATE WITHOUT URINARY OBSTRUCTION AND OTHER LOWER URINARY TRACT SYMPTOMS (LUTS) 04/26/2014 CLEO DUQUE APRN 607.84 IMPOTENCE OF ORGANIC ORIGIN 04/26/2014 CLEO DUQUE APRN 701.1 KERATODERMA ACQUIRED 04/26/2014 CLEO DUQUE APRN V16.9 FAMILY HISTORY OF UNSPECIFIED MALIGNANT NEOPLASM 04/26/2014 HOOVER DO, BRYCE K 600.00 HYPERTROPHY (BENIGN) OF PROSTATE WITHOUT URINARY OBSTRUCTION AND OTHER LOWER URINARY TRACT SYMPTOMS (LUTS) 04/26/2014 HOOVER DO, BRYCE K 607.84 IMPOTENCE OF ORGANIC ORIGIN 04/26/2014 HOOVER DO, BRYCE K 701.1 KERATODERMA ACQUIRED 04/26/2014 HOOVER DO, BRYCE K V16.9 FAMILY HISTORY OF UNSPECIFIED MALIGNANT NEOPLASM 04/26/2014 CLEO DUQUE APRN 600.00 HYPERTROPHY (BENIGN) OF PROSTATE WITHOUT URINARY OBSTRUCTION AND OTHER LOWER URINARY TRACT SYMPTOMS (LUTS) 04/26/2014 CLEO DUQUE APRN 607.84 IMPOTENCE OF ORGANIC ORIGIN 04/26/2014 CLEO DUQUE APRN 701.1 KERATODERMA ACQUIRED 04/26/2014 CLEO DUQUE APRN V16.9 FAMILY HISTORY OF UNSPECIFIED MALIGNANT NEOPLASM 04/26/2014 CLEO DUQUE APRN 600.00 HYPERTROPHY (BENIGN) OF PROSTATE WITHOUT URINARY OBSTRUCTION AND OTHER LOWER URINARY TRACT SYMPTOMS (LUTS) 04/26/2014 CLEO DUQUE APRN 607.84 IMPOTENCE OF ORGANIC ORIGIN 04/26/2014 CLEO DUQUE APRN 701.1 KERATODERMA ACQUIRED 04/26/2014 CLEO DUQUE APRN V16.9 FAMILY HISTORY OF UNSPECIFIED MALIGNANT NEOPLASM 08/02/2014 CLEO DUQUE APRN 601.9 PROSTATITIS UNSPECIFIED 08/02/2014 CLEO DUQUE APRN 601.9 PROSTATITIS UNSPECIFIED 08/02/2014 BRYCE HOOVER DO K 601.9 PROSTATITIS UNSPECIFIED 08/02/2014 CLEO DUQUE APRN 601.9 PROSTATITIS UNSPECIFIED 08/02/2014 CLEO DUQUE APRN 601.9 PROSTATITIS UNSPECIFIED 08/28/2014 CLEO DUQUE APRN T 604.90 ORCHITIS AND EPIDIDYMITIS UNSPECIFIED 08/28/2014 BRYCE HOOVER DO K 604.90 ORCHITIS AND EPIDIDYMITIS UNSPECIFIED 08/28/2014 CLEO DUQUE APRN T 604.90 ORCHITIS AND EPIDIDYMITIS UNSPECIFIED 08/28/2014 CLEO DUQUE APRN 604.90 ORCHITIS AND EPIDIDYMITIS UNSPECIFIED 09/10/2014 BRYCE HOOVER DO K 455.3 EXTERNAL HEMORRHOIDS WITHOUT COMPLICATION 09/10/2014 CLEO DUQUE APRN 455.3 EXTERNAL HEMORRHOIDS WITHOUT COMPLICATION 09/10/2014 CLEO DUQUE APRN 455.3 EXTERNAL HEMORRHOIDS WITHOUT COMPLICATION 10/09/2014 CLEO DUQUE APRN V74.5 STD SCREEN 10/31/2014 CLEO DUQUEP Ot 601.9 10/31/2014 CLEO DUQUE NEEDLE LOOM OPERATOR Ot 604.90 12/19/2014 CLEO DUQUE NEEDLE LOOM OPERATOR Ot 601.9 12/19/2014 CLEO DUQUE NEEDLE LOOM OPERATOR Ot 604.90 03/28/2018 CLEO DUQUEP Ot 601.9 PROSTATITIS NOS 03/28/2018 CLEO DUQEU NEEDLE LOOM OPERATOR Ot 604.90 ORCHITIS/EPIDIDYMIT NOS 03/28/2018 Ot 601.9 PROSTATITIS NOS 06/01/2018 CLEO DUQUEP Ot N41.1 CHRONIC PROSTATITIS 06/01/2018 CLEO DUQUEP Ot 601.9 PROSTATITIS NOS 06/01/2018 CLEO DUQUE NEEDLE LOOM OPERATOR Ot 604.90 ORCHITIS/EPIDIDYMIT NOS 06/01/2018 Ot 601.9 PROSTATITIS NOS 06/01/2018 CLEO DUQUE Ot N41.1 CHRONIC PROSTATITIS Procedures Code Description [place] [address] ROUTINE VENIPUNCTURE 04/02/2014 07915 CBC 04/02/2014 43085 CMP 04/02/2014 3541955 GFR CALC (RESULT ONLY) 04/02/2014 90988 PSA TOTAL 04/02/2014 27050 TSH 04/02/2014 14817 HEPATITIS PROFILE 04/02/2014 27717 XRAY SHOULDER RIGHT COMP 2 VIEWS 04/03/2014 58865 US SACRAL ULTRASOUND 08/28/2014 85419 US SCROTUM ULTRASOUND 08/28/2014 71792 ROUTINE VENIPUNCTURE 10/09/2014 51138 SYPHILLIS-STATE LAB 10/09/2014 57801 GC/CHLAM URINE (STATE) 10/09/2014 05932 UA LONG DIP 10/09/2014 57444 CBC 10/09/2014 Results Test Result Range CBC With Differential/Platelet - 07/16/16 08:51 WBC 5.6 x10E3/uL 3.4-10.8 RBC 4.71 x10E6/uL 4.14-5.80 Hemoglobin 15.1 g/dL 12.6-17.7 Hematocrit 46.0 % 37.5-51.0 MCV 98 fL 79-97 MCH 32.1 pg 26.6-33.0 MCHC 32.8 g/dL 31.5-35.7 RDW 13.4 % 12.3-15.4 Platelets 238 x10E3/uL 150-379 Neutrophils 69 % Lymphs 22 % Monocytes 8 % Eos 1 % Basos 0 % Neutrophils (Absolute) 3.8 x10E3/uL 1.4-7.0 Lymphs (Absolute) 1.2 x10E3/uL 0.7-3.1 Monocytes(Absolute) 0.4 x10E3/uL 0.1-0.9 Eos (Absolute) 0.1 x10E3/uL 0.0-0.4 Baso (Absolute) 0.0 x10E3/uL 0.0-0.2 Immature Granulocytes 0 % Immature Grans (Abs) 0.0 x10E3/uL 0.0-0.1 Comp. Metabolic Panel (14) - 07/16/16 08:51 Glucose, Serum 89 mg/dL 65-99 BUN 11 mg/dL 8-27 Creatinine, Serum 0.94 mg/dL 0.76-1.27 eGFR If NonAfricn Am 85 mL/min/1.73 >59 eGFR If Africn Am 99 mL/min/1.73 >59 BUN/Creatinine Ratio 12 10-22 Sodium, Serum 142 mmol/L 136-144 Potassium, Serum 4.5 mmol/L 3.5-5.2 Chloride, Serum 101 mmol/L 97-106 Carbon Dioxide, Total 27 mmol/L 18-29 Calcium, Serum 9.0 mg/dL 8.6-10.2 Protein, Total, Serum 6.1 g/dL 6.0-8.5 Albumin, Serum 3.8 g/dL 3.6-4.8 Globulin, Total 2.3 g/dL 1.5-4.5 A/G Ratio 1.7 1.1-2.5 Bilirubin, Total 0.4 mg/dL 0.0-1.2 Alkaline Phosphatase, S 91 IU/L 39-117 AST (SGOT) 13 IU/L 0-40 ALT (SGPT) 17 IU/L 0-44 Lipid Panel - 07/16/16 08:51 Cholesterol, Total 165 mg/dL 100-199 Triglycerides 100 mg/dL 0-149 HDL Cholesterol 45 mg/dL >39 VLDL Cholesterol Jj 20 mg/dL 5-40 LDL Cholesterol Calc 100 mg/dL 0-99 Prostate-Specific Ag, Serum - 07/16/16 08:51 Prostate Specific Ag, Serum 0.8 ng/mL 0.0-4.0 CMP - 03/08/18 17:38 GLUCOSE 87 mg/dL 65-99 UREA NITROGEN (BUN) 22 mg/dL 7-25 CREATININE 1.16 mg/dL 0.70-1.25 eGFR NON-AFR. MALAWIAN 65 mL/min/1.73m2 > OR=60 eGFR 76 mL/min/1.73m2 > OR=60 BUN/CREATININE RATIO NOT APPLICABLE (calc) 6-22 SODIUM 141 mmol/L 135-146 POTASSIUM 4.1 mmol/L 3.5-5.3 CHLORIDE 106 mmol/L 98-110 CARBON DIOXIDE 28 mmol/L 20-31 CALCIUM 9.1 mg/dL 8.6-10.3 PROTEIN, TOTAL 6.1 g/dL 6.1-8.1 ALBUMIN 3.8 g/dL 3.6-5.1 GLOBULIN 2.3 g/dL (calc) 1.9-3.7 ALBUMIN/GLOBULIN RATIO 1.7 (calc) 1.0-2.5 BILIRUBIN, TOTAL 0.5 mg/dL 0.2-1.2 ALKALINE PHOSPHATASE 82 U/L 40-115 AST 16 U/L 10-35 ALT 15 U/L 9-46 Encounters ACCT No. Visit Date/Time Discharge Status Pt. Type Provider Facility Loc./Unit Complaint [id number] 10/09/2014 14:27:00 10/09/2014 23:59:59 CLS Outpatient CLEO DUQUE APRN [id number] 09/24/2014 14:24:00 09/24/2014 23:59:59 CLS Outpatient CLEO DUQUE APRN [id number] 09/10/2014 16:53:00 09/10/2014 23:59:59 CLS Outpatient BRYCE HOOVER DO [id number] 08/28/2014 16:02:00 08/28/2014 23:59:59 CLS Outpatient CLEO DUQUE APRN [id number] 08/02/2014 12:43:00 08/02/2014 23:59:59 CLS Outpatient CLEO DUQUE APRN [id number] 04/26/2014 09:23:00 04/26/2014 23:59:59 CLS Outpatient BRYCE HOOVER DO [id number] 04/02/2014 14:53:00 04/02/2014 23:59:59 CLS Outpatient KAMLA MAS APRN [id number] 03/08/2018 17:20:00 03/08/2018 23:59:59 CLS Outpatient KEVON MCLEAN [facility] [id number] 03/08/2018 17:20:00 Document Registration [id number] 07/17/2016 13:06:00 Document Registration [id number] 03/28/2018 12:44:00 03/28/2018 23:59:59 CLS Outpatient CLEO DUQUE [facility] RAD PROSTATITIS [id number] 09/04/2014 14:23:00 09/04/2014 23:59:59 CLS Outpatient CLEO DUQUE [facility] RAD PROSTITIS, EPIDIDIMITIS [id number] 06/01/2018 00:38:00 ACT Emergency KLEVER HERRERA DO [facility] ER FEMUR FX [id number] 11/26/2014 11:41:00 Document Registration
--- OUTSIDE RECORDS SUMMARY | 2018-06-01 00:43 | XMS REPORT ---
Author Author CLEO DUQUE Organization [employer] Address Unknown Phone Unavailable Care Team Providers Care Food Service Coordinator Name Role Phone CLEO DUQUE CP Unavailable Allergies, Adverse Reactions, Alerts Substance Reaction Event Type Ampicillin Info Not Available Drug Allergy Problems Problem Type Condition Code Onset Dates Condition Status Problem External hemorrhoids without mention of complication 455.3 Active Problem Contact or exposure to other viral diseases V01.79 Active Problem Screening examination for venereal disease V74.5 Active Assessment Restless leg syndrome G25.81 Active Assessment Benign non-nodular prostatic hyperplasia with lower urinary tract symptoms N40.1 Active Problem Impotence of organic origin 607.84 [...] Instructions Start Date End Date Status Dosage B-[address] [facility] [address]-98 1 mg Orally Once a day Jul 25, 2015 as directed Neurontin [facility] [address]-99 100 MG Orally 2 times a day Jul 25, [address] [facility] [id number] 0.4 MG 1 capsule by Oral route 1 time per day Procedures Procedure Coding System Code Date Office Visit, Est Pt., Level 3 CPT-4 26800 Jul 25, 2015 Vital Signs Date/Time: Jul 25, 2015 Temperature 98.0 F Weight 143.8 lbs Height 73 in BMI 18.97 Index Blood Pressure Diastolic 68 mmHg Blood Pressure Systolic 122 mmHg Cardiac Monitoring Heart Rate 72 bpm Results No Known Results Summary Purpose [employer] Submission
[2018-06-01] MEDS ORDERED: TETANUS,DIPTH,PERTUSS P/F (BOOSTRIX) 0.5 ML VIAL IM STA (01:02)
[2018-06-01] MEDS ORDERED: ceFAZolin INJECTION 1,000 MG in NS (IVPB) 50 ML IV STA (01:02)
[2018-06-01 01:31] VITALS: BP 142/91
[2018-06-01] MEDS ORDERED: NS IV 1000 ML 1,000 ML ONE (04:08)
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
== END 2018-06-01 01:31 | disposition short-term general hospital (02) ==
LOC: EDUNIT# 00:36 → ER 00:38
DX: S09.90XA Unspecified injury of head, initial encounter (principal); S72.92XB Unspecified fracture of left femur, initial encounter for open fracture type I or II; R91.8 Other nonspecific abnormal finding of lung field; Z88.0 Allergy status to penicillin; Z23 Encounter for immunization; V48.5XXA Car driver injured in noncollision transport accident in traffic accident, initial encounter
CPT/HCPCS: 71045; 82962; 90471; 90715; 96361; 96365; 99291

== ENCOUNTER 2018-07-20 13:03 | Inpatient (IN) | payer MEDICARE, OTHER ==
[~2018-07-20] VITALS: Ht 185.4 cm; Wt 64.9 kg
[2018-07-20] MEDS ORDERED: ACETAMINOPHEN 500 MG TAB (TYLENOL) PO PRN ×2 (13:15→16:30)
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
[2018-07-20 13:38] LABS: BASOPHILS % (AUTO) 0 % (0-10); EOSINOPHILS % (AUTO) 0 % (0-10); HEMATOCRIT 41 % (40-54); HEMOGLOBIN 13.5 G/DL (13.3-17.7); LYMPHOCYTES # (AUTO) 0.8 X 10^3 (1.0-4.0); LYMPHOCYTES % (AUTO) 8 % (12-44); MEAN CORPUSCULAR HEMOGLOBIN 32 PG (25-34); MEAN CORPUSCULAR HGB CONC 33 G/DL (32-36); MEAN CORPUSCULAR VOLUME 98 FL (80-99); MEAN PLATELET VOLUME 8.6 FL (7.4-10.4); MONOCYTES # (AUTO) 0.4 X 10^3 (0.0-1.0); MONOCYTES % (AUTO) 4 % (0-12); NEUTROPHILS % (AUTO) 87 % (42-75); PLATELET COUNT 210 10^3/uL (130-400); RED BLOOD COUNT 4.18 10^6/uL (4.35-5.85); RED CELL DISTRIBUTION WIDTH 14.7 % (10.0-14.5); WHITE BLOOD COUNT 9.2 10^3/uL (4.3-11.0)
--- NOTE | 2018-07-20 13:54 | Diagnostic Imaging Report ---
INDICATION: Chest and back pain. TIME OF EXAMINATION: 01:21 p.m. COMPARISON: Correlation is made with prior study from 06/01/2018. FINDINGS: The heart size is stable. There is airspace infiltrate in the right upper lobe that has developed since prior study and most consistent with pneumonia. Left lung is clear. No effusion or pneumothorax is seen. IMPRESSION: Development of right upper lobe pneumonia since examination from 06/01/2018. Dictated by: Dictated on workstation # [id number]
[2018-07-20 13:56] LABS: PROTHROMBIN TIME PATIENT 13.6 SEC (12.2-14.7)
[2018-07-20 14:01] LABS: ALANINE AMINOTRANSFERASE 14 U/L (0-55); ALBUMIN 3.2 GM/DL (3.2-4.5); ALKALINE PHOSPHATASE 84 U/L (40-136); BILIRUBIN,TOTAL 0.5 MG/DL (0.1-1.0); BUN/CREATININE RATIO 12; CALCIUM 8.7 MG/DL (8.5-10.1); CARBON DIOXIDE 22 MMOL/L (21-32); CHLORIDE 104 MMOL/L (98-107); CREATININE SERUM 0.82 MG/DL (0.60-1.30); GFR ESTIMATED > 60; GLUCOSE 105 MG/DL (70-105); SODIUM 134 MMOL/L (135-145); TOTAL PROTEIN 5.7 GM/DL (6.4-8.2)
[2018-07-20 14:08] LABS: BAND NEUTROPHILS 6 %; BASOPHILS % (MANUAL) 0 %; EOSINOPHILS % (MANUAL) 0 %; LYMPHOCYTES % (MANUAL) 10 %; MONOCYTES % (MANUAL) 1 %; NEUTROPHILS % (MANUAL) 83 %; RBC MORPH NORMAL
[2018-07-20] MEDS ORDERED: HYDROmorphone 2 MG/ML VIAL (DILAUDID) IV STA (14:08)
[2018-07-20 14:18] LABS: BILIRUBIN,URINE NEGATIVE (NEGATIVE); CLARITY,URINE SLIGHTLY CLOUDY; COLOR,URINE YELLOW; GLUCOSE, URINE (UA) NEGATIVE (NEGATIVE); KETONES,URINE NEGATIVE (NEGATIVE); LEUKOCYTE ESTERASE ,URINE NEGATIVE (NEGATIVE); NITRITE,URINE NEGATIVE (NEGATIVE); PH,URINE 7 (5-9); PROTEIN,URINE NEGATIVE (NEGATIVE); UROBILINOGEN,URINE NORMAL (NORMAL)
[2018-07-20 14:25] LABS: AMORPHOUS SEDIMENT,UR FEW AMOR PHOSPHATE /LPF; BACTERIA,URINE NEGATIVE /HPF; SQUAMOUS EPITHELIAL CELL,UR RARE /HPF; WBC,URINE RARE /HPF
[2018-07-20] MEDS ORDERED: NS IV 500 ML 500 ML IV ONE (14:48)
[2018-07-20] MEDS ORDERED: NS IV 1000 ML 1,000 ML IV ONE (14:48)
[2018-07-20] MEDS ORDERED: fentaNYL INJECTION 100 MCG/2 ML AMP IVP STA (14:52)
[2018-07-20] MEDS ORDERED: CEFEPIME INJECTION 2,000 MG in NS (IVPB) 50 ML IV ONE (15:00)
[2018-07-20 16:05] VITALS: BP 90/55
[2018-07-20] MEDS ORDERED: NOREPINEPHRINE 4 MG in NS (IVPB) 250 ML IV SCH (16:24)
[2018-07-20 16:30] VITALS: BP 100/60
[2018-07-20] MEDS ORDERED: VANCOMYCIN 1500 MG/NS 500 ML IVPB IV SCH ×2 (16:30)
[2018-07-20] MEDS ORDERED: FLU QUADRIvalent (5+ YOA) 2018-2019 (AFLURIA) 0.5 ML IM ONE (16:45)
[2018-07-20] MEDS ORDERED: CATHETER FLUSH 10 ML SYR IV PRN (16:45)
[2018-07-20] MEDS: NS IV 1000 ML 1,000 ML IV SCH ×2 (16:50→23:55)
[2018-07-20] MEDS: HYDROmorphone 2 MG/ML VIAL (DILAUDID) IV PRN ×2 (16:54→21:27)
[2018-07-20 17:00] VITALS: BP 102/62
[2018-07-20 17:02] VITALS: BP 90/55
[2018-07-20] MEDS ORDERED: RT-ALBUTEROL SULF 2.5 MG/3 ML PRE-MIX VIAL INH PRN (17:15)
[2018-07-20 18:00] VITALS: BP 98/62
[2018-07-20 20:15] VITALS: BP 95/55
[2018-07-21] VITALS (14 sets, daily range): BP systolic 113–150; BP diastolic 65–81
[2018-07-21] MEDS: HYDROmorphone 2 MG/ML VIAL (DILAUDID) IV PRN ×3 (00:45→07:08)
[2018-07-21] MEDS: CEFEPIME 2 GM/NS 50 ML IVPB IV SCH ×4 (02:31→16:45)
[2018-07-21] MEDS: NS IV 1000 ML 1,000 ML IV SCH ×6 (02:31→21:19)
[2018-07-21] MEDS: VANCOMYCIN 1 GM/NS 250 ML IVPB IV SCH ×4 (05:32→17:20)
--- NOTE | 2018-07-21 06:26 | Diagnostic Imaging Report ---
PROCEDURE: CT abdomen and pelvis without contrast. TECHNIQUE: Multiple contiguous axial images were obtained through the abdomen and pelvis without the use of intravenous contrast. INDICATION: Severe abdominal pain. FINDINGS: The heart size is normal. There is some minimal bibasilar subsegmental atelectasis and/or pneumonitis. There are small bilateral pleural effusions. The liver is normal in size and without focal lesions. Gallbladder is grossly unremarkable. There is no biliary duct dilatation. Spleen is normal. The pancreas and adrenal glands are unremarkable. There is a 6 mm nonobstructing stone in the right kidney. There is a small cyst in the left kidney. There is mild atherosclerotic calcification of the aorta which is nonaneurysmal. Bowel gas pattern is nonspecific. There is a moderate amount of retained fecal material which may reflect some degree of constipation. Bladder is unremarkable. There are small fat-containing inguinal hernias. Prostate is mildly enlarged. There is trace ascites. There is no free air. There are no focal inflammatory changes. There are mild degenerative changes in the spine. IMPRESSION: Bibasilar subsegmental atelectasis and/or pneumonitis and trace bilateral pleural effusions. Moderate amount of retained fecal material likely reflecting some degree of constipation. Otherwise, nonspecific bowel gas pattern. Trace pelvic ascites. A 6 mm nonobstructing right renal calculi No other acute abnormality in the abdomen or pelvis. Dictated by: Dictated on workstation # [id number]
[2018-07-21 06:52] LABS: BASOPHILS % (AUTO) 0 % (0-10); EOSINOPHILS % (AUTO) 0 % (0-10); HEMATOCRIT 38 % (40-54); HEMOGLOBIN 12.4 G/DL (13.3-17.7); LYMPHOCYTES # (AUTO) 0.6 X 10^3 (1.0-4.0); LYMPHOCYTES % (AUTO) 7 % (12-44); MEAN CORPUSCULAR HEMOGLOBIN 33 PG (25-34); MEAN CORPUSCULAR HGB CONC 33 G/DL (32-36); MEAN CORPUSCULAR VOLUME 100 FL (80-99); MEAN PLATELET VOLUME 9.1 FL (7.4-10.4); MONOCYTES # (AUTO) 0.3 X 10^3 (0.0-1.0); MONOCYTES % (AUTO) 3 % (0-12); NEUTROPHILS # (AUTO) 7.4 X 10^3 (1.8-7.8); NEUTROPHILS % (AUTO) 89 % (42-75); PLATELET COUNT 210 10^3/uL (130-400); RED BLOOD COUNT 3.82 10^6/uL (4.35-5.85); RED CELL DISTRIBUTION WIDTH 14.5 % (10.0-14.5); WHITE BLOOD COUNT 8.3 10^3/uL (4.3-11.0)
[2018-07-21 07:07] LABS: ALANINE AMINOTRANSFERASE 15 U/L (0-55); ALBUMIN 3.2 GM/DL (3.2-4.5); ALKALINE PHOSPHATASE 81 U/L (40-136); BILIRUBIN,TOTAL 0.5 MG/DL (0.1-1.0); BUN/CREATININE RATIO 14; CARBON DIOXIDE 20 MMOL/L (21-32); CHLORIDE 104 MMOL/L (98-107); GFR ESTIMATED > 60; GLUCOSE 107 MG/DL (70-105); SODIUM 136 MMOL/L (135-145); TOTAL PROTEIN 5.6 GM/DL (6.4-8.2)
[2018-07-21] MEDS ORDERED: KETOROLAC 30 MG/ML VIAL ONE (08:42)
[2018-07-21] MEDS: KETOROLAC 30 MG/ML VIAL IVP PRN ×2 (08:54→18:51)
[2018-07-21] MEDS ORDERED: KETOROLAC 30 MG/ML VIAL IVP NR (09:00)
[2018-07-21] MEDS ORDERED: TAMS0.4C98 PO (09:13)
[2018-07-21] MEDS ORDERED: POLY17PO6 PO (09:13)
[2018-07-21] MEDS ORDERED: HYDR-3820 PO (09:13)
[2018-07-21] MEDS ORDERED: ALPR0.254 PO (09:13)
[2018-07-21] MEDS ORDERED: OXYC20TA54 PO (09:13)
[2018-07-21] MEDS ORDERED: TRAZ-189 PO (09:13)
[2018-07-21] MEDS ORDERED: SENN1TAB93 PO (09:13)
[2018-07-21] MEDS ORDERED: CALC10009 PO (09:13)
[2018-07-21] MEDS ORDERED: ACET-2267 PO (09:13)
[2018-07-21] MEDS ORDERED: MELA5TAB14 PO (09:31)
--- NOTE | 2018-07-21 10:05 | Diagnostic Imaging Report ---
INDICATION: Right-sided abdominal pain. Nausea. COMPARISON: None. FINDINGS: Two supine radiographic view of the abdomen were obtained and demonstrate nondistended loops of small bowel. There is no large collection of free peritoneal air. Moderate air and stool are seen scattered throughout the colon. There is moderate gaseous distention of the stomach as well. No unexpected extraosseous calcifications or radiopaque foreign bodies are seen. Bony structures show no gross acute abnormalities. IMPRESSION: 1. Nonobstructed small bowel gas pattern. 2. Moderate colonic air and stool. Please correlate for constipation 3. Moderate gaseous distention of the stomach. Dictated by: Dictated on workstation # [id number]
--- NOTE | 2018-07-21 10:32 | CONSULTATION REPORT ---
DATE OF SERVICE: ATTENDING PHYSICIAN: Nayla Castanon DO. SUMMARY: After reviewing the patient's record x-rays, interviewing him and examining him, this is a 67-year-old white man admitted with right upper lobe pneumonia and possible sepsis. He had cough, fever and chills. No nausea or vomiting. Admits some weakness. No flank pains and no groin pains. ALLERGIES: He is allergic to PENICILLIN. MEDICATIONS: His medications at home were reviewed. REVIEW OF SYSTEMS: As above. SOCIAL HISTORY: Former smoker. No alcohol, no drugs and some orthopedic surgeries, admits to hypertension, BPH. FAMILY HISTORY: Stones. His CAT scan revealed a 6 mm nonobstructing right renal stones. PHYSICAL EXAMINATION: VITAL SIGNS: Per chart. GENERAL: Well nourished, well developed, in mild distress. HEENT: Head is normocephalic. ENT is unremarkable. NECK: Supple. CHEST: Clear. CARDIOVASCULAR: Regular rate and rhythm. ABDOMEN: Soft. No CVA tenderness. No abdominal tenderness. Surgery area is very good . EXTREMITIES: Lower extremities, no edema or cyanosis. NEUROLOGIC: Grossly intact. Oriented x 3. RECTAL: Deferred. LABORATORY DATA: White count was 9.2, his creatinine is 0.82 and his estimated GFR 6/60. Urinalysis is essentially negative. He is on cefepime. IMPRESSION: 1. Right renal stone, nonobstructing asymptomatic. 2. Right upper lobe pneumonia. 3. High blood pressure. 4. Osteoarthritis. PLAN: Treat present pneumonia, later on we can address the renal stone with ESWL. Thank you for letting me participate in the care of this patient. We will follow with you. Job ID: [id number] DocumentID: [id number] Dictated Date: 07/21/2018 08:51:52 Cardio Tech Date: 07/21/2018 10:32:06 Dictated By: SHOSHANA WARD MD
--- NOTE | 2018-07-21 11:09 | Occ Therapy Progress Note ---
Therapy Progress Note Order received for OT eval and treat. Chart review completed. Attempted OT evaluation at 1015. Pt resting in bed, declined to participate at this time. States he is not feeling well and does not want to have his pain increased by participating in therapy. Will attempt to complete evaluation this afternoon as pt able to tolerate. 1, visit. KONRAD BLAIR OT Jul 21, 2018 11:08
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
[2018-07-21] MEDS ORDERED: ENOXAPARIN 30 MG/0.3 ML (LOVENOX) SYR SC SCH ×2 (12:00→16:00)
--- NOTE | 2018-07-21 12:26 | Diagnostic Imaging Report ---
PROCEDURE: US Gallbladder. TECHNIQUE: Multiple real-time grayscale images were obtained over the right upper quadrant in various projections. INDICATION: Severe abdominal pain. COMPARISON: CT abdomen and pelvis from 07/31/2018. FINDINGS: The liver is normal in size and echogenicity. There is a circumscribed hyperechoic nodule in the right hepatic lobe measuring 1.5 x 0.8 cm which has features most compatible with a benign hemangioma.. The main portal vein is patent with antegrade flow. Gallbladder is moderately distended but is without gallstones. Pericholecystic fluid is present and there is mild gallbladder wall thickening. The common bile duct measures up to 0.5 cm in diameter. No intrahepatic biliary dilation. The visualized portions of the pancreas are normal. Portions of the head and tail are obscured by overlying bowel gas. The right kidney is normal in size. No hydronephrosis, shadowing calculi, or suspicious mass lesion. IMPRESSION: 1. Distended gallbladder with wall thickening and pericholecystic fluid could relate to acute cholecystitis, although there are no gallstones identified. If it will alter patient management, nuclear medicine HIDA scan can be performed to assess for cystic duct patency. Dictated by: Dictated on workstation # [id number]
[2018-07-21] MEDS ORDERED: SEVOFLURANE (ULTANE) 15 ML INHAL SOLN ONE ×6 (12:44→14:24)
[2018-07-21] MEDS ORDERED: proPOfol 200 MG/20 ML (DIPRIVAN) VIAL IV ONE (12:44)
[2018-07-21] MEDS ORDERED: LIDOCAINE PF 2% 5 ML (XYLOCAINE) VIAL ONE (12:44)
[2018-07-21] MEDS ORDERED: DEXAMETHASONE 10 MG/ML (DECADRON) 1 ML VIAL ONE (12:44)
[2018-07-21] MEDS ORDERED: ONDANSETRON 4 MG/2 ML (SDV) Z0FRAN ONE (12:44)
[2018-07-21] MEDS ORDERED: fentaNYL INJECTION 100 MCG/2 ML AMP ONE (12:45)
[2018-07-21] MEDS ORDERED: MIDAZOLAM 2 MG/2 ML (VERSED) VIAL ONE (12:45)
[2018-07-21] MEDS ORDERED: BUP/EPI 0.5% 1:200,000 (SENSORCAINE) 30 ML VIAL ONE (12:46)
[2018-07-21] MEDS: LACTATED RINGERS 1,000 ML IV PRN ×2 (13:08→14:15)
--- NOTE | 2018-07-21 13:10 | Occ Therapy Progress Note ---
Therapy Progress Note Attempted therapy at 1220. Pt in bed, states he is still not feeling well, declined therapy. Pt states he will be going for gallbladder procedure this afternoon. RN confirms. Will continue to monitor. 1, visit KONRAD BLAIR OT Jul 21, 2018 13:10
[2018-07-21] MEDS ORDERED: CLINDAMYCIN 600 MG/4ML (CLEOCIN) VIAL ONE (13:20)
[2018-07-21] MEDS ORDERED: metroNIDAZOLE 500MG/100ML IVPB 100 ML ONE (13:20)
[2018-07-21] MEDS ORDERED: NS (IVPB) 50 ML ONE (13:21)
[2018-07-21] MEDS ORDERED: metroNIDAZOLE 500MG/100ML IVPB 100 ML IV ONE (13:30)
[2018-07-21] MEDS ORDERED: CLINDAMYCIN 600 MG/50 ML IVPB 50 ML IV ONE (13:30)
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
--- NOTE | 2018-07-21 13:36 | Progress Note-Pre Operative ---
Pre-Operative Progress Note H&P Reviewed The H&P was reviewed, patient examined and no changes noted. Date Seen by Provider: Jul 21, 2018 Time Seen by Provider: 12:05 Date H&P Reviewed: Jul 21, 2018 Time H&P Reviewed: 13:36 Pre-Operative Diagnosis: Acute acalculous cholecystitis SELENA HOWELL MD Jul 21, 2018 13:36
[2018-07-21] MEDS ORDERED: ROCURONIUM 10 MG/ML 5 ML SYRINGE IV ONE (14:05)
[2018-07-21] MEDS ORDERED: PHENYLEPHRINE 100 MCG/ML 10 ML (ANESTHESIA) SYR ONE (14:17)
[2018-07-21] MEDS ORDERED: GLYCOPYRROLATE 0.2 MG/ML (ROBINUL) 2 ML VIAL ONE (14:51)
[2018-07-21] MEDS ORDERED: NEOSTIGMINE 1 MG/ML 5 ML SYRINGE ONE (14:51)
--- NOTE | 2018-07-21 15:02 | Operative Report ---
Operative Report Date of Procedure/Surgery Jul 21, 2018 Surgeon (s) SELENA HOWELL MD Cyber Security Architect (s): N/A Post-Operative Diagnosis Acute gangrenous cholecystitis Procedure Performed Robotic-assisted cholecystectomy Description of Procedure Anesthesia Type: General Estimated blood loss (mL): Minimal Specimen(s) collected/removed Gangrenous gallbladder Description of the Procedure Indication for the procedure: This gentleman has been admitted with fever, right upper lobe pneumonia and was found to have acute, acalculous cholecystitis. He was offered cholecystectomy using minimally invasive technique with robotic assistance. Informed consent was obtained after reviewing the operative details and complications of wound infection and bile leak and cardiorespiratory dysfunction. Description of the procedure: He was placed supine on the operative table and general anesthesia induced. Ancef and Flagyl were administered intravenously as prophylaxis against wound infection. Sequential compression devices were placed around his legs, to minimize the risk of venous thrombosis. Abdomen was prepared and draped in the usual sterile manner. Pneumoperitoneum was established using a Veress needle introduced over the subumbilical region. Intra-abdominal pressure was maintained at 15 mmHg, using carbon dioxide insufflation. A 12 mm trocar was placed and anatomy visualized using the high definition, 3-dimensional laparoscope, associated with da Hortensia system. Bilious fluid was found around the subhepatic region and along the right paracolic gutter. In addition, his colon was dilated as well. Under direct view, I placed an 8 mm trocar over each side of the abdomen, followed by a 5 mm trocar over the left subcostal region. He was then turned into reverse Trendelenburg position with the right side tilted up. The robotic system was then docked into place. Liver was gently lifted up, revealing an acutely inflamed, gangrenous gallbladder. The fundus was then retracted cephalad and the infundibulum grasped with Cadiere forceps. Inflamed tissue around the neck of the gallbladder was dissected using the suction tip followed by the hook cautery, delineating the cystic duct and artery both were divided between locking clips. Cholecystectomy was then completed using the hook cautery. The gallbladder was then placed in an Endo Catch bag and removed via the subumbilical trocar site. Prior to this, subhepatic space and the right paracolic gutter were irrigated with warm saline. The fascia over the subumbilical incision and the one over each 8 mm trocar incision were closed using #1 Vicryl. Skin incisions were closed using 4-0 Vicryl, in a subcuticular fashion. 0.5 percent Marcaine with epinephrine was infiltrated along the incisions, both preemptively and at the conclusion of the operation. He tolerated the procedure well, was extubated in the operative room and taken to the recovery room in a stable condition. Findings of the Procedure see op report Allergies and Home Medications Allergies Coded Allergies: Penicillins (Verified Allergy, Unknown, 06/01/18) Home Medications Acetaminophen 500 Mg Tablet, 500-1,000 MG PO Q6H PRN for PAIN-MILD, (Reported) Alprazolam 0.25 Mg Tablet, 0.25 MG PO DAILY, (Reported) Calcium Carbonate 400 Mg Tab.chew, 2 TAB.CHEW PO TID PRN for INDIGESTION, ( Reported) Hydrocodone/Acetaminophen 1 Each Tablet, 1 TAB PO Q4H PRN for PAIN-MODERATE, ( Reported) Melatonin 5 Mg Tablet, 10 MG PO HS, (Reported) Oxycodone HCl 20 Mg Tab.er.12h, 20 MG PO BID, (Reported) Polyethylene Glycol 3350 17 Gm Powd.pack, 17 GM PO DAILY PRN for CONSTIPATION- 2ND LINE, (Reported) Sennosides/Docusate Sodium 1 Each Tablet, 1-2 TAB PO BID, (Reported) Tamsulosin HCl 0.4 Mg Cap, 0.8 MG PO HS, (Reported) TAKES 2 (0.4MG) CAPSULES Trazodone HCl 50 Mg Tablet, 50 MG PO HS, (Reported) Patient Home Medication List Home Medication List Reviewed: Yes SELENA HOWELL MD Jul 21, 2018 15:02
[2018-07-21] MEDS ORDERED: fentaNYL INJECTION 100 MCG/2 ML AMP IVP ONE (15:15)
[2018-07-21] MEDS ORDERED: PROMETHAZINE INJ 25 MG/ML (PHENERGAN) AMP IVP ONE (15:15)
[2018-07-21] MEDS ORDERED: HYDROmorphone 2 MG/ML VIAL (DILAUDID) IV ONE (15:15)
[2018-07-21] MEDS ORDERED: ONDANSETRON 4 MG/2 ML (SDV) Z0FRAN IVP PRN ×2 (15:15)
[2018-07-21] MEDS ORDERED: morphine INJ 10 MG/ML 1ML (SYR OR VIAL) IVP ONE (15:15)
[2018-07-21] MEDS: LACTATED RINGERS 1,000 ML IV SCH (16:44)
[2018-07-21] MEDS: fentaNYL INJECTION 100 MCG/2 ML AMP IV PRN (20:43)
[2018-07-21] MEDS: TAMSULOSIN 0.4 MG (FLOMAX) CAP PO SCH (20:43)
[2018-07-21] MEDS: traZODone 50 MG (DESYREL) TAB PO SCH (21:19)
[2018-07-21] MEDS: MELATONIN 3 MG TABLET PO SCH (21:19)
[2018-07-21] MEDS: oxyCODONE ER 20 MG (OxyCONTIN CR) TAB PO SCH (21:20)
[2018-07-22] VITALS (17 sets, daily range): BP systolic 80–123; BP diastolic 50–86
[2018-07-22] MEDS: NS IV 1000 ML 1,000 ML IV SCH ×4 (00:28→12:28)
[2018-07-22] MEDS: LACTATED RINGERS 1,000 ML IV SCH ×3 (00:28→14:00)
[2018-07-22] MEDS: fentaNYL INJECTION 100 MCG/2 ML AMP IV PRN ×2 (01:42→05:31)
[2018-07-22] MEDS: CEFEPIME 2 GM/NS 50 ML IVPB IV SCH ×4 (03:14→14:37)
[2018-07-22 04:29] LABS: BASOPHILS % (AUTO) 0 % (0-10); EOSINOPHILS % (AUTO) 0 % (0-10); HEMATOCRIT 36 % (40-54); HEMOGLOBIN 11.6 G/DL (13.3-17.7); LYMPHOCYTES # (AUTO) 0.4 X 10^3 (1.0-4.0); LYMPHOCYTES % (AUTO) 4 % (12-44); MEAN CORPUSCULAR HEMOGLOBIN 32 PG (25-34); MEAN CORPUSCULAR HGB CONC 32 G/DL (32-36); MEAN CORPUSCULAR VOLUME 99 FL (80-99); MEAN PLATELET VOLUME 9.2 FL (7.4-10.4); MONOCYTES # (AUTO) 0.2 X 10^3 (0.0-1.0); MONOCYTES % (AUTO) 3 % (0-12); NEUTROPHILS # (AUTO) 8.6 X 10^3 (1.8-7.8); NEUTROPHILS % (AUTO) 94 % (42-75); PLATELET COUNT 176 10^3/uL (130-400); RED BLOOD COUNT 3.63 10^6/uL (4.35-5.85); RED CELL DISTRIBUTION WIDTH 14.6 % (10.0-14.5); WHITE BLOOD COUNT 9.2 10^3/uL (4.3-11.0)
[2018-07-22 04:44] LABS: BUN/CREATININE RATIO 20; CALCIUM 9.1 MG/DL (8.5-10.1); CARBON DIOXIDE 20 MMOL/L (21-32); CHLORIDE 106 MMOL/L (98-107); CREATININE SERUM 0.71 MG/DL (0.60-1.30); GFR ESTIMATED > 60; GLUCOSE 150 MG/DL (70-105); MAGNESIUM 1.6 MG/DL (1.8-2.4); PHOSPHORUS 2.8 MG/DL (2.3-4.7); SODIUM 136 MMOL/L (135-145)
[2018-07-22] MEDS: VANCOMYCIN 1 GM/NS 250 ML IVPB IV SCH ×4 (05:02→16:06)
[2018-07-22] MEDS: KETOROLAC 30 MG/ML VIAL IVP PRN ×2 (05:56→11:16)
[2018-07-22] MEDS: HYDROcodone/APAP 10 MG/325 MG (LORTAB) TAB PO PRN ×3 (05:56→18:40)
[2018-07-22] MEDS ORDERED: MAGNESIUM 1 GM/100 ML IVPB 100 ML IV SCH (06:00)
[2018-07-22] MEDS ORDERED: POTASSIUM CL 10MEQ/50ML IVPB 50 ML IV SCH (06:00)
[2018-07-22] MEDS ORDERED: KCL 20 MEQ TAB (K-DUR) PO SCH (06:00)
--- NOTE | 2018-07-22 08:07 | Diagnostic Imaging Report ---
Indication: Shortness of breath Portable chest at 2:49 AM Findings: There is a faint infiltrate in the right upper lobe. The left lung is clear. There is no effusion or pneumothorax. Impression: Faint right upper lobe infiltrate may represent developing pneumonia. Dictated by: Dictated on workstation # [id number]
[2018-07-22] MEDS: MAGNESIUM 1 GM/100 ML IVPB 100 ML IV SCH ×2 (08:18→09:20)
[2018-07-22] MEDS: oxyCODONE ER 20 MG (OxyCONTIN CR) TAB PO SCH ×2 (08:19→20:23)
[2018-07-22] MEDS: ALPRAZolam 0.25 MG (XANAX) TAB PO SCH (08:19)
--- NOTE | 2018-07-22 10:02 | Anesthesia-General Post-Op ---
General Patient Condition Mental Status/LOC: Same as Preop Cardiovascular: Satisfactory Nausea/Vomiting: Absent Respiratory: Satisfactory Pain: Controlled Complications: Absent Post Op Complications Complications None Follow Up Care/Instructions Patient Instructions None needed. Anesthesia/Patient Condition Patient Condition Patient is doing well, no complaints, stable vital signs, no apparent adverse anesthesia problems. No complications reported per nursing. LORETTA VARGAS CRNA Jul 22, 2018 10:02
[2018-07-22] MEDS ORDERED: NS IV 500 ML 500 ML IV ONE ×2 (10:45→12:15)
--- NOTE | 2018-07-22 11:17 | Progress Note (SOAP) ---
Subjective Date Seen by a Provider: Jul 22, 2018 Time Seen by a Provider: 11:00 Subjective/Events-last exam doing much better today. tolerating reg diet. pain controlled. no SOB or fever/ chills. ambulating well with assistance. Focused Exam Lactate Level 07/20/18 13:29: Lactic Acid Level 1.14 Objective Exam Vital Signs Date Time Temp Pulse Resp B/P (MAP) Pulse Ox O2 Delivery O2 Flow Rate FiO2 07/22/18 09:00 76 16 101/72 (82) 97 Room Air 07/22/18 08:00 98.5 07/22/18 08:00 Room Air 07/22/18 08:00 58 13 108/71 (83) 97 Room Air 07/22/18 07:00 60 13 114/86 (95) 99 Room Air 07/22/18 07:00 58 07/22/18 06:00 66 18 94 Room Air 07/22/18 05:00 54 15 121/79 (93) 99 Room Air 07/22/18 04:00 Room Air 07/22/18 04:00 98.0 07/22/18 04:00 56 12 112/75 (87) 97 Room Air 07/22/18 03:00 62 13 115/67 (83) 97 Room Air 07/22/18 02:00 59 14 115/69 (84) 97 Room Air 07/22/18 01:00 57 07/22/18 01:00 57 13 123/75 (91) 98 Room Air 07/22/18 00:36 98.6 07/22/18 00:00 Room Air 07/22/18 00:00 52 12 116/74 (88) 98 Room Air 07/21/18 23:00 66 14 119/77 (91) 96 Room Air 07/21/18 22:00 70 13 123/74 (90) 95 Room Air 07/21/18 21:00 67 12 123/78 (93) 95 Room Air 07/21/18 20:00 Room Air 07/21/18 20:00 66 15 120/68 (85) 96 Room Air 07/21/18 19:41 100.3 70 14 113/71 (85) 97 Room Air 07/21/18 19:00 67 11 113/71 (85) 94 Room Air 07/21/18 19:00 67 07/21/18 18:58 97 Room Air 07/21/18 18:00 76 16 120/72 (88) 98 Room Air 07/21/18 17:00 68 14 119/76 (90) 96 Room Air 07/21/18 16:45 64 9 127/81 (96) 93 Room Air 07/21/18 16:10 Room Air 07/21/18 16:10 98.9 73 20 116/77 (90) 92 Room Air 07/21/18 12:00 100.8 76 20 119/65 (83) 97 Room Air I & O 07/22/18 07:00 Intake Total 3480 ml Output Total 2850 ml Balance 630 ml Capillary Refill : Less Than 3 Seconds General Appearance: No Apparent Distress HEENT: PERRL/EOMI Neck: Full Range of Motion Respiratory: Chest Non Tender, Normal Breath Sounds Cardiovascular: Regular Rate, Rhythm Gastrointestinal: normal bowel sounds, soft, other (wounds clean/dry) Extremity: Normal Capillary Refill Neurologic/Psychiatric: Alert, Oriented x3 Skin: Normal Color Lymphatic: No Adenopathy Results Lab Laboratory Tests 07/22/18 03:53: White Blood Count 9.2, Red Blood Count 3.63L, Hemoglobin 11.6L, Hematocrit 36L, Mean Corpuscular Volume 99, Mean Corpuscular Hemoglobin 32, Mean Corpuscular Hemoglobin Concent 32, Red Cell Distribution Width 14.6H, Platelet Count 176, Mean Platelet Volume 9.2, Neutrophils (%) (Auto) 94H, Lymphocytes (%) (Auto) 4L , Monocytes (%) (Auto) 3, Eosinophils (%) (Auto) 0, Basophils (%) (Auto) 0, Neutrophils # (Auto) 8.6H, Lymphocytes # (Auto) 0.4L, Monocytes # (Auto) 0.2, Eosinophils # (Auto) 0.0, Basophils # (Auto) 0.0, Sodium Level 136, Potassium Level 4.0, Chloride Level 106, Carbon Dioxide Level 20L, Anion Gap 10, Blood Urea Nitrogen 14, Creatinine 0.71, Estimat Glomerular Filtration Rate > 60, BUN/ Creatinine Ratio 20, Glucose Level 150H, Calcium Level 9.1, Phosphorus Level 2.8 , Magnesium Level 1.6L Microbiology 07/20/18 Blood Culture - Preliminary, Resulted No growth 07/20/18 Influenza Types A,B Antigen (SUNITHA) - Final, Complete 07/20/18 Urine Culture - Final, Complete NO GROWTH Assessment/Plan Assessment/Plan Assess & Plan/Chief Complaint s/p lap china for gangrenous cholecytitis with right lung pneumonia. doing well. transfer to floor. continue with ambulation w/o weight bearing left leg. continue IV abx for another day. Clinical Quality Measures DVT/VTE Risk/Contraindication: Risk Factor Score Per Nursin RFS Level Per Nursing on Admit: 4+=Very High Risk Score Comment: JERMAIN Hanna MD Jul 22, 2018 11:17 am
[2018-07-22] MEDS ORDERED: ZOLPIDEM 5 MG (AMBIEN) TAB PO PRN (11:30)
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
[2018-07-22] MEDS ORDERED: ENOXAPARIN 40 MG/0.4 ML (LOVENOX) SYR SC SCH (15:15)
[2018-07-22] MEDS ORDERED: ENOXAPARIN 30 MG/0.3 ML (LOVENOX) SYR SC SCH (16:00)
[2018-07-22] MEDS: traZODone 50 MG (DESYREL) TAB PO SCH (20:23)
[2018-07-22] MEDS: TAMSULOSIN 0.4 MG (FLOMAX) CAP PO SCH (20:23)
[2018-07-22] MEDS: MELATONIN 3 MG TABLET PO SCH (20:23)
[2018-07-23] MEDS: LACTATED RINGERS 1,000 ML IV SCH ×2 (00:01→08:30)
[2018-07-23 00:15] VITALS: BP 80/53
[2018-07-23 02:15] VITALS: BP 90/52
[2018-07-23] MEDS: CEFEPIME 2 GM/NS 50 ML IVPB IV SCH ×2 (02:53)
[2018-07-23 04:15] VITALS: BP 107/53
[2018-07-23] MEDS: VANCOMYCIN 1 GM/NS 250 ML IVPB IV SCH ×2 (04:29)
[2018-07-23 05:30] LABS: HEMOGLOBIN 10.5 G/DL (13.3-17.7); MEAN PLATELET VOLUME 9.8 FL (7.4-10.4); RED BLOOD COUNT 3.29 10^6/uL (4.35-5.85); RED CELL DISTRIBUTION WIDTH 14.7 % (10.0-14.5); WHITE BLOOD COUNT 8.3 10^3/uL (4.3-11.0)
[2018-07-23 05:59] LABS: BUN/CREATININE RATIO 34; CALCIUM 8.5 MG/DL (8.5-10.1); CARBON DIOXIDE 19 MMOL/L (21-32); CHLORIDE 108 MMOL/L (98-107); CREATININE SERUM 0.64 MG/DL (0.60-1.30); GFR ESTIMATED > 60; GLUCOSE 106 MG/DL (70-105); POTASSIUM 3.5 MMOL/L (3.6-5.0); SODIUM 137 MMOL/L (135-145)
[2018-07-23 06:15] VITALS: BP 108/65
[2018-07-23] MEDS: HYDROcodone/APAP 10 MG/325 MG (LORTAB) TAB PO PRN ×2 (07:14→13:18)
[2018-07-23] MEDS: ALPRAZolam 0.25 MG (XANAX) TAB PO SCH (07:14)
[2018-07-23 08:00] VITALS: BP 96/57
[2018-07-23] MEDS: oxyCODONE ER 20 MG (OxyCONTIN CR) TAB PO SCH (08:30)
--- NOTE | 2018-07-23 10:59 | Progress Note (SOAP) ---
Subjective Date Seen by a Provider: Jul 23, 2018 Time Seen by a Provider: 10:00 Subjective/Events-last exam Patient seen with Dr. Chandler. Patient reports doing well. No N/V. Tolerating diet. Reports minimal abdominal pain. No fever/chills. Focused Exam Lactate Level 07/20/18 13:29: Lactic Acid Level 1.14 Objective Exam Vital Signs Date Time Temp Pulse Resp B/P (MAP) Pulse Ox O2 Delivery O2 Flow Rate FiO2 07/23/18 08:00 98.6 72 18 96/57 (70) 93 Room Air 07/23/18 06:15 98.2 81 18 108/65 (79) 96 Room Air 07/23/18 04:15 97.7 79 18 107/53 (71) 93 Room Air 07/23/18 02:15 98.8 69 18 90/52 (65) 98 Room Air 07/23/18 00:15 98.0 72 14 80/53 (62) 97 Room Air 07/22/18 22:00 80/56 (64) 07/22/18 19:55 98.0 67 18 88/52 (64) 99 Room Air 07/22/18 19:45 97 Room Air 07/22/18 19:02 97 Room Air 07/22/18 18:00 61 89/50 (63) 07/22/18 16:00 Room Air 07/22/18 15:45 97.4 58 16 80/51 (61) 100 Room Air 07/22/18 14:48 96.6 65 16 83/53 (63) 99 Room Air 07/22/18 13:00 58 07/22/18 12:25 Room Air 07/22/18 12:00 98.1 07/22/18 12:00 63 25 93/59 (70) 99 Room Air 07/22/18 11:00 76 14 113/72 (86) 96 Room Air I & O 07/23/18 07:00 Intake Total 7710 ml Output Total 825 ml Balance 6885 ml Capillary Refill : Less Than 3 Seconds General Appearance: No Apparent Distress, WD/WN Neck: Full Range of Motion, Normal Inspection, Non Tender, Supple Respiratory: Chest Non Tender, No Accessory Muscle Use, No Respiratory Distress Cardiovascular: Regular Rate, Rhythm, No Edema Gastrointestinal: normal bowel sounds, soft, tenderness (incisional) Neurologic/Psychiatric: Alert, Oriented x3 Skin: Normal Color, Warm/Dry, Other (Incisions C/D/I) Results Lab Laboratory Tests 07/23/18 04:40: White Blood Count 8.3, Red Blood Count 3.29L, Hemoglobin 10.5L, Hematocrit 33L, Mean Corpuscular Volume 100H, Mean Corpuscular Hemoglobin 32, Mean Corpuscular Hemoglobin Concent 32, Red Cell Distribution Width 14.7H, Platelet Count 139, Mean Platelet Volume 9.8, Sodium Level 137, Potassium Level 3.5L, Chloride Level 108H, Carbon Dioxide Level 19L, Anion Gap 10, Blood Urea Nitrogen 22H, Creatinine 0.64, Estimat Glomerular Filtration Rate > 60, BUN/Creatinine Ratio 34, Glucose Level 106H, Calcium Level 8.5 Microbiology 07/20/18 Blood Culture - Preliminary, Resulted No growth 07/21/18 MRSA Screen - Final, Complete No growth 07/20/18 Urine Culture - Final, Complete NO GROWTH Assessment/Plan Assessment/Plan Assess & Plan/Chief Complaint s/p lap china for gangrenous cholecytitis with right lung pneumonia. Continues to do well. continue with ambulation w/o weight bearing left leg. Ok to [place] home from surgical standpoint. Clinical Quality Measures DVT/VTE Risk/Contraindication: Risk Factor Score Per Nursin RFS Level Per Nursing on Admit: 4+=Very High Risk Score Comment: TAE Young APRN Jul 23, 2018 10:59 am
[2018-07-23] MEDS ORDERED: CEFD300C3 PO (12:01)
--- NOTE | 2018-07-23 12:03 | Discharge Instructions ---
Discharge Inst-[facility] Discharge Medications New, Converted or Re-Newed RX: Transmitted to Pharmacy ([facility]) New Medications: Cefdinir (Cefdinir) 300 Mg Capsule 300 MG PO BID for 4 Days, #8 CAP 0 Refills Continued Medications: Acetaminophen (Tylenol Extra Strength) 500 Mg Tablet 500-1000 MG PO Q6H PRN for PAIN-MILD, TAB Alprazolam (Alprazolam) 0.25 Mg Tablet 0.25 MG PO DAILY, TAB Calcium Carbonate (Tums Ultra) 400 Mg Tab.chew 2 TAB.CHEW PO TID PRN for INDIGESTION, TAB Hydrocodone/Acetaminophen (Hydrocodon-Acetaminophn 10-325) 1 Each Tablet 1 TAB PO Q4H PRN for PAIN-MODERATE, TAB Melatonin (Melatonin) 5 Mg Tablet 10 MG PO HS, TAB Oxycodone HCl (Oxycontin) 20 Mg Tab.er.12h 20 MG PO BID, TAB Polyethylene Glycol 3350 (Miralax) 17 Gm Powd.pack 17 GM PO DAILY PRN for CONSTIPATION-2ND LINE, EACH Sennosides/Docusate Sodium (Senna-Docusate Sodium Tablet) 1 Each Tablet 1-2 TAB PO BID, TAB Tamsulosin HCl (Flomax) 0.4 Mg Cap 0.8 MG PO HS, CAP TAKES 2 (0.4MG) CAPSULES Trazodone HCl (Trazodone HCl) 50 Mg Tablet 50 MG PO HS, TAB Patient Instructions Goal/Follow Up Appt: Follow-up with William Stevens APRN at [facility] on 08/03/18 at 2:00pm Follow-up with Dr. Simpson next week. Activity & Diet Discharge Diet: No Restrictions Orders-Post D/C & Referrals Pneu Vac Indicated: Yes BRYCE HOOVER DO Jul 23, 2018 12:03
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
[2018-07-23] MEDS ORDERED: FLU QUADRIvalent (5+ YOA) 2018-2019 (AFLURIA) 0.5 ML IM ONE (13:22)
--- NOTE | 2018-07-25 11:13 | Physician Query Clarification ---
PQ-Further Specificity Admission/Discharge Admission Date: Jul 20, 2018 at 15:21 Discharge Date: Jul 23, 2018 at 14:03 The medical record reflects the following clinical scenario: History/Risk Factors: Pneumonia, acute cholecystitis, calculus kidney Clinical Findings: T 102, BP 93/54, lactic acid 1.14, WBC 9.2, Bands 6 Treatment: IV Cefepime, IV Vancomycin Question: Can you further clarify Sepsis per the clinical indicators above? Please document below. 1. Sepsis ruled out 2. Sepsis confirmed 3. Other, with explanation of the clinical findings. 4. Clinically undetermined, no explanation for the clinical findings. PHYSICIAN RESPONSE Can you specify per above: 2 In responding to this query, please exercise your independent professional judgment. The purpose of this communication is to more accurately reflect the complexity of your patients condition. The fact that a question is asked does not imply that any particular answer is desired or expected. Thank you for your timely response to this clarification. Requestors name: Colin THIS PHYSICIAN QUERY FORM IS A PERMANENT PART OF THE MEDICAL RECORD COLIN HUANG Jul 25, 2018 11:13 BRYCE HOOVER DO Jul 26, 2018 16:44
== END 2018-07-23 14:03 | disposition home or self-care (01) | DRG 853 ==
LOC: ER 13:03 → EDUNIT# 13:03 → ICU 15:21 → 4TH 16:18 → ICU 07-21 16:10 → 4TH 07-22 14:32
PROVIDERS: ADMIT Family Medicine; ATTEND Family Medicine
PROC: 8E0W4CZ Robotic Assisted Procedure of Trunk Region, Percutaneous Endoscopic Approach (ICD-10-PCS; 2018-07-21)
PROC: 0FT44ZZ Resection of Gallbladder, Percutaneous Endoscopic Approach (ICD-10-PCS; principal; 2018-07-21 13:29)
DX: A41.9 Sepsis, unspecified organism (principal); J18.1 Lobar pneumonia, unspecified organism; K81.0 Acute cholecystitis; M70.32 Other bursitis of elbow, left elbow; N20.0 Calculus of kidney; I10 Essential (primary) hypertension; N40.0 Benign prostatic hyperplasia without lower urinary tract symptoms; G47.9 Sleep disorder, unspecified; F41.9 Anxiety disorder, unspecified; M19.91 Primary osteoarthritis, unspecified site; Z87.891 Personal history of nicotine dependence; S72.92XE Unspecified fracture of left femur, subsequent encounter for open fracture type I or II with routine healing
CPT/HCPCS: 36415; 71045; 74018; 74176; 76705; 80048; 80053; 81000; 83605; 83735; 84100; 85007; 85025; 85027; 85610; 85730; 87040; 87081; 87088; 87804; 88304; 90686; 93005; 94664; 94760; 96361; 96365; 96375

== ENCOUNTER → 2018-08-01 | Outpatient (CLI) | payer MEDICARE ==
[~2018-08-01] MED LIST changes: +ACET-2267 PO; +ALPR0.254 PO; +CALC10009 PO; -CATHETER FLUSH 10 ML SYR IV PRN; +CEFD300C3 PO; +HYDR-3820 PO; -IOHEXOL 350 MG/ML 100 ML (OMNIPAQUE 350) VIAL IV ONE; +MELA5TAB14 PO; -NS 250 ML (IVPB) BAG IV ONE; +OXYC20TA54 PO; +POLY17PO6 PO; +SENN1TAB93 PO; +TAMS0.4C98 PO; +TRAZ-189 PO
--- NOTE | 2018-08-01 10:58 | Diagnostic Imaging Report ---
PROCEDURE: US left lower extremity venous. TECHNIQUE: Multiple real-time grayscale images were obtained over the left lower extremity in various projections. Additional duplex Doppler and color Doppler images were also obtained. INDICATION: Pain and swelling. FINDINGS: The left common femoral, superficial femoral, popliteal veins and tibial veins demonstrate normal response to compression, augmentation, and Valsalva. There are no abnormal left lower extremity fluid collections or masses. IMPRESSION: No evidence of deep venous thrombosis in the left lower extremity. Dictated by: Dictated on workstation # [id number]
== END ==
LOC: RAD 09:21
PROVIDERS: ATTEND Nurse Practitioner Community Health
DX: R60.0 Localized edema (principal)
CPT/HCPCS: 36415; 85379

== ENCOUNTER 2018-08-17 13:03 | Emergency (ER) | payer SELFPAY ==
[~2018-08-17] VITALS: Ht 185.4 cm; Wt 64.9 kg
[2018-08-17] MEDS ORDERED: fentaNYL INJECTION 100 MCG/2 ML AMP IVP ONE ×2 (13:45→15:00)
[2018-08-17] MEDS ORDERED: LIDOCAINE 1% INJ 20 ML 20 ML VIAL INJ ONE (13:45)
[2018-08-17 13:51] LABS: BASOPHILS % (AUTO) 0 % (0-10); EOSINOPHILS # (AUTO) 0.1 10^3/uL (0.0-0.3); EOSINOPHILS % (AUTO) 1 % (0-10); HEMATOCRIT 37 % (40-54); LYMPHOCYTES # (AUTO) 1.4 X 10^3 (1.0-4.0); LYMPHOCYTES % (AUTO) 16 % (12-44); MEAN CORPUSCULAR HEMOGLOBIN 31 PG (25-34); MEAN CORPUSCULAR HGB CONC 32 G/DL (32-36); MEAN CORPUSCULAR VOLUME 95 FL (80-99); MEAN PLATELET VOLUME 9.1 FL (7.4-10.4); MONOCYTES # (AUTO) 0.8 X 10^3 (0.0-1.0); MONOCYTES % (AUTO) 9 % (0-12); NEUTROPHILS # (AUTO) 6.7 X 10^3 (1.8-7.8); NEUTROPHILS % (AUTO) 75 % (42-75); PLATELET COUNT 211 10^3/uL (130-400); RED BLOOD COUNT 3.89 10^6/uL (4.35-5.85); RED CELL DISTRIBUTION WIDTH 14.1 % (10.0-14.5)
--- NOTE | 2018-08-17 13:56 | ED Lower Extremity ---
General Stated Complaint: HIP PAIN Source: patient Exam Limitations: no limitations History of Present Illness Date Seen by Provider: Aug 17, 2018 Time Seen by Provider: 13:53 Initial Comments To ER with left lower activity swelling for the past 2 weeks. At the onset of this he had an ultrasound left lower extremity which did not identify DVT. He states that the pain in the left hip is worse, the swelling is worse and he is now unable to flex the knee. He has had to have the knee drained on the left a multitude of times in the past due to effusions. No fevers or chills. No injury. He was here for a left hip replacement at the beginning of July. Onset: other Severity: moderate Pain/Injury Location: left knee Method of Injury: unknown Modifying Factors: Worse With Movement Allergies and Home Medications Allergies Coded Allergies: Penicillins (Verified Allergy, Unknown, 06/01/18) Home Medications Acetaminophen 500 Mg Tablet, 500-1,000 MG PO Q6H PRN for PAIN-MILD, (Reported) Alprazolam 0.25 Mg Tablet, 0.25 MG PO DAILY, (Reported) Calcium Carbonate 400 Mg Tab.chew, 2 TAB.CHEW PO TID PRN for INDIGESTION, ( Reported) Cefdinir 300 Mg Capsule, 300 MG PO BID Prescribed by: BRYCE HOOVER on 07/23/18 1201 Hydrocodone/Acetaminophen 1 Each Tablet, 1 TAB PO Q4H PRN for PAIN-MODERATE, ( Reported) Hydrocodone/Acetaminophen 1 Each Tablet, 1 EACH PO Q6H PRN for PAIN-MODERATE Prescribed by: ANN TATUM on 08/17/18 1740 Melatonin 5 Mg Tablet, 10 MG PO HS, (Reported) Oxycodone HCl 20 Mg Tab.er.12h, 20 MG PO BID, (Reported) Polyethylene Glycol 3350 17 Gm Powd.pack, 17 GM PO DAILY PRN for CONSTIPATION- 2ND LINE, (Reported) Sennosides/Docusate Sodium 1 Each Tablet, 1-2 TAB PO BID, (Reported) Tamsulosin HCl 0.4 Mg Cap, 0.8 MG PO HS, (Reported) TAKES 2 (0.4MG) CAPSULES Trazodone HCl 50 Mg Tablet, 50 MG PO HS, (Reported) Patient Home Medication List Home Medication List Reviewed: Yes Review of Systems Constitutional: see HPI; No chills, No fever EENTM: see HPI Respiratory: no symptoms reported Cardiovascular: no symptoms reported Genitourinary: no symptoms reported Musculoskeletal: see HPI Skin: no symptoms reported Psychiatric/Neurological: No Symptoms Reported Past Wexehlw-Jtupvp-Euwzmt Hx Patient Social History Type Used: Cigarettes Former Smoker, Quit: Jun 06, 2018 Recent Hopitalizations: No Immunizations Up To Date Tetanus Booster (TDap): Unknown Seasonal Allergies Seasonal Allergies: Yes Past Medical History Surgeries: Yes (LEFT LEG SURGERY, ( NOT SURE WHAT OTHER SURGERY'S DONE ON )) Orthopedic Respiratory: No Cardiac: Yes (IRREGULAR HEART FOUND TODAY ( 07/20/18 )) Hypertension Neurological: No Genitourinary: Yes Benign Prostatic Hyperpl Gastrointestinal: No Musculoskeletal: Yes (FX FACE AND HEAD 06/01/18 ( SENT TO [facility] )) Fractures Endocrine: No HEENT: No Cancer: No Psychosocial: Yes Sleep Difficulties, Anxiety Integumentary: No Blood Disorders: Yes (06/01/18) Adverse Reaction/Blood Tranf: No Family Medical History HARDENING OF LUNGS 19 FATHER Physical Exam Vital Signs Vital Signs - First Documented 08/17/18 13:32 Temp 98.4 Pulse 71 Resp 12 B/P (MAP) 124/77 (93) Pulse Ox 99 O2 Delivery Room Air Capillary Refill : Height, Weight, BMI Height: 6'1.00" Weight: 143lbs. 0.0oz. 64.294150ep; 18.9 BMI Method:Estimated General Appearance: WD/WN, no apparent distress Respiratory: no respiratory distress, no accessory muscle use Gastrointestinal: normal bowel sounds, non tender Hips: bilateral hip non-tender, bilateral hip normal inspection, bilateral hip normal range of motion Legs: left leg pain, left leg soft tissue tenderness, left leg other (. Swelling to the dorsum of the left foot, some swelling to the left lower leg up to the knee. There is a large left knee joint effusion. Proximal to the left knee I do not appreciate any swelling. Small incision over the lateral hip from hip pinning. Incision is clean dry and intact without surrounding erythema.) Knees: right knee non-tender, right knee normal inspection, right knee normal range of motion; left knee joint effusion, left knee soft tissue tenderness, left knee swelling Ankles: bilateral ankle non-tender, bilateral ankle normal inspection, bilateral ankle normal range of motion Feet: left foot swelling Neurologic/Psychiatric: alert, normal mood/affect, oriented x 3 Skin: normal color, warm/dry Procedures/Interventions Additional Procedures: Arthrocentesis Aspirating Progress Left knee arthrocentesis note. The superior and lateral border of the left patella was identified. 1 cm superior and lateral to this skin was cleansed with alcohol swab and anesthetized with 0.5 mL of 1% lidocaine without epinephrine. Skin was then cleansed with Betadine swab. A larger 18-gauge 1/2 inch needle was attached to a 20 mL syringe and was inserted into the synovial space and a total of 25 mL of clear yellow synovial fluid was aspirated. This was sent to lab for cell count and differential, Crystal analysis and culture. Puncture site was covered with 2 x 2 gauze and OpSite. Progress/Results/Core Measures Results/Orders Lab Results Laboratory Tests Test 08/17/18 13:40 08/17/18 14:46 Range/Units White Blood Count 9.0 4.3-11.0 10^3/uL Red Blood Count 3.89 L 4.35-5.85 10^6/uL Hemoglobin 12.0 L 13.3-17.7 G/DL Hematocrit 37 L 40-54 % Mean Corpuscular Volume 95 80-99 FL Mean Corpuscular Hemoglobin 31 25-34 PG Mean Corpuscular Hemoglobin Concent 32 32-36 G/DL Red Cell Distribution Width 14.1 10.0-14.5 % Platelet Count 211 130-400 10^3/uL Mean Platelet Volume 9.1 7.4-10.4 FL Neutrophils (%) (Auto) 75 42-75 % Lymphocytes (%) (Auto) 16 12-44 % Monocytes (%) (Auto) 9 0-12 % Eosinophils (%) (Auto) 1 0-10 % Basophils (%) (Auto) 0 0-10 % Neutrophils # (Auto) 6.7 1.8-7.8 X 10^3 Lymphocytes # (Auto) 1.4 1.0-4.0 X 10^3 Monocytes # (Auto) 0.8 0.0-1.0 X 10^3 Eosinophils # (Auto) 0.1 0.0-0.3 10^3/uL Basophils # (Auto) 0.0 0.0-0.1 10^3/uL Sodium Level 141 135-145 MMOL/L Potassium Level 3.8 3.6-5.0 MMOL/L Chloride Level 105 98-107 MMOL/L Carbon Dioxide Level 25 21-32 MMOL/L Anion Gap 11 5-14 MMOL/L Blood Urea Nitrogen 8 7-18 MG/DL Creatinine 0.82 0.60-1.30 MG/DL Estimat Glomerular Filtration Rate > 60 BUN/Creatinine Ratio 10 Glucose Level 100 70-105 MG/DL Calcium Level 9.2 8.5-10.1 MG/DL Corrected Calcium 9.5 8.5-10.1 MG/DL Total Bilirubin 0.4 0.1-1.0 MG/DL Aspartate Amino Transf (AST/SGOT) 12 5-34 U/L Alanine Aminotransferase (ALT/SGPT) 11 0-55 U/L Alkaline Phosphatase 103 40-136 U/L Total Protein 6.4 6.4-8.2 GM/DL Albumin 3.6 3.2-4.5 GM/DL Body Fluid Source SYNOVIAL Body Fluid Color YELLOW Body Fluid Appearance SLT CLDY Body Fluid WBC 115 /uL Body Fluid RBC 600 /uL Body Fluid Polynuclear WBCs 30 % Body Fluid Mononuclear WBCs 10 % Body Fluid Lymphocytes 60 % Body Fluid Other Cells 0 % Body Fluid Crystals NOT SEEN My Orders Orders - ANN TATUM APRN Knee, Left, 3 Views (08/17/18 13:40) Hip, Left, 2 Views (08/17/18 13:40) Iv Heplock-Insert (Order) (08/17/18 13:40) Cbc With Automated Diff (08/17/18 13:40) Comprehensive Metabolic Panel (08/17/18 13:40) Us Venous Lower Ext Lt (08/17/18 13:40) Body Fluid Cell Count (08/17/18 13:40) Body Fluid Culture (08/17/18 13:40) Crystals,Body Fluid (08/17/18 13:40) Fentanyl Injection (Sublimaze Injection (08/17/18 13:45) Lidocaine 1% Inj 20 Ml (Xylocaine 1% Inj (08/17/18 13:45) Fentanyl Injection (Sublimaze Injection (08/17/18 15:00) General/Regular (08/17/18 Lunch) Knee Immobilizer (08/17/18 17:31) Medications Given in ED Current Medications Medications Dose Ordered Sig/Ivette Route Start Time Stop Time Status Last Admin Dose Admin Fentanyl Citrate 50 mcg ONCE ONCE IVP 08/17/18 13:45 08/17/18 13:46 DC 08/17/18 13:53 50 MCG Fentanyl Citrate 50 mcg ONCE ONCE IVP 08/17/18 15:00 08/17/18 15:01 DC 08/17/18 15:06 50 MCG Lidocaine HCl 2 ml ONCE ONCE INJ 08/17/18 13:45 08/17/18 13:46 DC 08/17/18 14:36 2 ML Vital Signs/I&O 08/17/18 08/17/18 13:32 18:00 Temp 98.4 98.6 Pulse 71 64 Resp 12 11 B/P (MAP) 124/77 (93) 140/82 (101) Pulse Ox 99 100 O2 Delivery Room Air Room Air Diagnostic Imaging Diagonstic Imaging: Ultrasound Plain Films/CT/US/NM/MRI: chest Comments NAME: CHENTE KOJennifer Roberto MED REC#: [id number] PT STATUS: REG ER : 1950 PHYSICIAN: ANN TATUM APRN ADMIT DATE: 08/17/18/ER Draft Date of Exam:08/17/18 US VENOUS LOWER EXT LT PROCEDURE: US left lower extremity venous. TECHNIQUE: Multiple real-time grayscale images were obtained over the left lower extremity in various projections. Additional duplex Doppler and color Doppler images were also obtained. INDICATION: Hip pain and left lower extremity swelling. There is no evidence of a left lower extremity DVT. Left lower extremity deep venous system shows normal compressibility with normal response to augmentation and Valsalva. No fluid collection or mass is seen. There is some edema in the subcutaneous tissues. IMPRESSION: No evidence of left lower extremity DVT. Dictated on workstation # [id number] Dict: 08/17/18 1427 Trans: 08/17/18 1434 [facility] [id number] Interpreted by: ORQUIDEA MANCUSO MD Electronically signed by: NAME: KARENA KO Pardeep MED REC#: [id number] PT STATUS: REG ER : 1950 PHYSICIAN: ANN TATUM APRN ADMIT DATE: 08/17/18/ER Draft Date of Exam:08/17/18 HIP, LEFT, 2 VIEWS INDICATION: Left hip pain. TIME OF EXAMINATION: 02:46 p.m. FINDINGS: Two views of left hip demonstrate intramedullary chapo and compression screw transfixing the left femoral neck fracture. Femoral acetabular alignment is normal. There is some residual fracture line noted at the base of the femoral neck along the medial cortex. Hardware is intact IMPRESSION: ORIF of left hip. There is a residual fracture line present at the basicervical location of the femoral neck on the medial side. No other significant abnormality is seen. Dictated on workstation # [id number] Dict: 08/17/18 1458 Trans: 08/17/18 150 [facility] [id number] Interpreted by: ORQUIDEA MANCUSO MD Electronically signed by: NAME: KARENA KO [facility] REC#: [id number] PT STATUS: REG ER : 1950 PHYSICIAN: ANN TATUM APRN ADMIT DATE: 08/17/18/ER Draft Date of Exam:08/17/18 KNEE, LEFT, 3 VIEWS Indication: Left hip pain and swelling. Time of exam: 2:47 PM 3 views of the left knee demonstrate intramedullary chapo and distal screw within the distal femur. There appears to be some elevation and fracture involving the medial cortex of the distal femoral diaphysis at the level of the distal screw. No other fractures are seen. There is significant tricompartmental degenerative change. There is chondrocalcinosis present in the medial and lateral compartments. There is a large knee joint effusion with overall soft tissue swelling in the prepatellar region. Impression: 1. There appears to be a fracture involving the distal femur at the level of the distal aspect of intramedullary chapo and fixating screw. No displacement is seen. 2. Degenerative changes at the left knee with moderate to large joint effusion and soft tissue swelling. Dictated on workstation # [id number] Dict: 08/17/18 1455 Trans: 08/17/18 1512 [facility] [id number] Interpreted by: ORQUIDEA MANCUSO MD Electronically signed by: Departure Communication (Admissions) [id number] spoke with Dr. Cueva from [facility] who placed the intramedullary chapo at the time of the injury on June 01 of this year. Given the findings of new fracture of the distal aspect of the intramedullary chapo he would recommend transfer to [id number]-spoke with [facility] Dr. Reddy who feels this is not a new fracture, would recommend knee immobilizer, nonweightbearing and follow-up with patient's primary orthopedist at he is aren't established with next week. Impression Primary Impression: Effusion, left knee Additional Impressions: Left leg swelling Karen-prosthetic femoral shaft fracture Disposition: HOME, SELF-CARE Condition: Stable Departure-Patient Inst. Decision time for Depature: 17:28 Referrals: [facility] (PCP) Primary Care Physician CLEO DUQUE (Family) Primary Care Physician Patient Instructions: General (DC) Add. Discharge Instructions: 1. Return to ER for any conerns 2. Follow up Dr Pérez at next week. Call tomorrow for an appointment 3. Wear the knee immobilizer when you're up and about. 4. No weight bearing on left leg. Scripts Hydrocodone/Acetaminophen ([place] 10-325 Tablet) 1 Each Tablet 1 EACH PO Q6H PRN for PAIN-MODERATE MDD 5, #30 TAB Prov: ANN TATUM DIE FILER 08/17/18 ANN TATUM DIE FILER Aug 17, 2018 13:56
[2018-08-17 14:11] LABS: ALANINE AMINOTRANSFERASE 11 U/L (0-55); ALBUMIN 3.6 GM/DL (3.2-4.5); ALKALINE PHOSPHATASE 103 U/L (40-136); BILIRUBIN,TOTAL 0.4 MG/DL (0.1-1.0); BUN/CREATININE RATIO 10; CALCIUM 9.2 MG/DL (8.5-10.1); CARBON DIOXIDE 25 MMOL/L (21-32); CHLORIDE 105 MMOL/L (98-107); CREATININE SERUM 0.82 MG/DL (0.60-1.30); GFR ESTIMATED > 60; GLUCOSE 100 MG/DL (70-105); POTASSIUM 3.8 MMOL/L (3.6-5.0); SODIUM 141 MMOL/L (135-145); TOTAL PROTEIN 6.4 GM/DL (6.4-8.2)
--- NOTE | 2018-08-17 14:35 | Diagnostic Imaging Report ---
PROCEDURE: US left lower extremity venous. TECHNIQUE: Multiple real-time grayscale images were obtained over the left lower extremity in various projections. Additional duplex Doppler and color Doppler images were also obtained. INDICATION: Hip pain and left lower extremity swelling. There is no evidence of a left lower extremity DVT. Left lower extremity deep venous system shows normal compressibility with normal response to augmentation and Valsalva. No fluid collection or mass is seen. There is some edema in the subcutaneous tissues. IMPRESSION: No evidence of left lower extremity DVT. Dictated by: Dictated on workstation # [id number]
--- NOTE | 2018-08-17 15:07 | Diagnostic Imaging Report ---
INDICATION: Left hip pain. TIME OF EXAMINATION: 02:46 p.m. FINDINGS: Two views of left hip demonstrate intramedullary chapo and compression screw transfixing the left femoral neck fracture. Femoral acetabular alignment is normal. There is some residual fracture line noted at the base of the femoral neck along the medial cortex. Hardware is intact IMPRESSION: ORIF of left hip. There is a residual fracture line present at the basicervical location of the femoral neck on the medial side. No other significant abnormality is seen. Dictated by: Dictated on workstation # [id number]
--- NOTE | 2018-08-17 15:13 | Diagnostic Imaging Report ---
Indication: Left hip pain and swelling. Time of exam: 2:47 PM 3 views of the left knee demonstrate intramedullary chapo and distal screw within the distal femur. There appears to be some elevation and fracture involving the medial cortex of the distal femoral diaphysis at the level of the distal screw. No other fractures are seen. There is significant tricompartmental degenerative change. There is chondrocalcinosis present in the medial and lateral compartments. There is a large knee joint effusion with overall soft tissue swelling in the prepatellar region. Impression: 1. There appears to be a fracture involving the distal femur at the level of the distal aspect of intramedullary chapo and fixating screw. No displacement is seen. 2. Degenerative changes at the left knee with moderate to large joint effusion and soft tissue swelling. Dictated by: Dictated on workstation # [id number]
[2018-08-17 16:41] LABS: BODY FLUID APPEARENCE SLT CLDY; BODY FLUID COLOR YELLOW; BODY FLUID SOURCE SYNOVIAL
[2018-08-17 16:42] LABS: BF OTHER CELLS 0 %; BODY FLUID RBC COUNT 600 /uL; BODY FLUID WBC TOTAL COUNT 115 /uL; LYMPHOCYTES,BODY FLUID 60 %
[2018-08-17] MEDS ORDERED: HYDR-4196 PO (17:40)
[2018-08-17 18:00] VITALS: BP 140/82
--- OUTSIDE RECORDS SUMMARY | 2018-08-18 03:18 | XMS REPORT | Encounter Summary ---
Author Author [facility] Organization [facility] Address Unknown Phone Unavailable Care Team Providers Care Bellman Captain Name Role Phone Rudolph Bragg DO Unavailable Yari Antonio MA Unavailable Unavailable Melissa Taylor APRN Unavailable Shun Donohue MD Unavailable Unavailable No Pcp, Na PCP Unavailable Reason for Referral * Consult, Test & Treat Status Reason Specialty Diagnoses / Referred By Referred To Procedures Contact Contact Closed Specialty Diagnoses Ted Pérez, Services Closed displaced MD Required segmental [address] shaft of left [place] [address] femur with [place], [place] routine healing, [id number] subsequent Phone: encounter [phone] Reason for Visit * Reason Comments Follow Up left femur Encounter Details Date Type Department Care Team Description 07/27/2018 Office Visit [facility] Ted Pérez MD Closed displaced Physicians - Orthopedics [address] segmental fracture of Orthopedics and Medical [address] shaft of [place] [address] routine healing, [address] [phone] subsequent encounter [place], [place] (Primary Dx) [address] Social History Tobacco Use Types Packs/Day Years Used Date Current Every Day Smoker Cigarettes 1 Smokeless Tobacco: Never Used Alcohol Use Drinks/Week oz/Week Comments Yes 1-2 Standard 0.5 - 1.0 occ drinks or equivalent Sex Assigned at Date Recorded Not on file as of this encounter Last Filed Vital Signs Vital Sign Reading Time Taken Blood Pressure - - Pulse - - Temperature - - Respiratory Rate - - Oxygen Saturation - - Inhaled Oxygen - - Concentration Weight 62.1 kg (137 lb) 07/27/2018 1:14 PM [employer]EL[employer] Height 185.4 cm (6' 1") 07/27/2018 1:14 PM [employer] Body Mass Index 18.07 07/27/2018 1:14 PM [employer]OU[employer] DEVELOPER in this encounter Progress Notes * Ted Pérez MD - 07/27/2018 1:10 PM 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 Clinton Saldivar presents today for followup and evaluation of his segmental left femur fracture. Patient reports that he had recently undergone cholecystectomy. He states that other than that, his left leg is doing better. On physical examination, he remains neurovascularly intact to the left lower extremity. He still has some dorsal foot swelling which is marked today. He demonstrates normal neurovascular function with the ability to extend his left knee, but cannot achieve full knee extension. He lacks about the terminal 5-7 degrees. He has tightness of his hamstring in the posterior capsule noted. All his surgical wounds about the left leg are healed. X-rays obtained include AP and lateral views of the left femur which demonstrate evidence of interval callus formation noted at the fracture sites. The hardware is maintaining a good position, and he does have some consolidation about the distal locking screw where there was some blowout noted of the medial cortex. Impression: 1. Left segmental femur fracture. 2. Basicervical left femoral neck fracture. Plan: Given these findings, I would recommend the patient commence with weightbearing and physical therapy to help load the fracture. I think that this will enhance some callus formation at his fracture sites. I would ask him to return to clinic in 6 weeks to reassess him both clinically and radiographically. He was given a prescription for physical therapy to work on his gait training as well as his knee range of motion. I had the opportunity to answer all of his questions prior to his departure from clinic. ([id number]) in this encounter Plan of Treatment Date Type Specialty Care Team Description 07/03/2018 Procedure Pass Urology Name Priority Associated Diagnoses Order Schedule AMB REFERRAL TO PHYSICAL OR OCCUPATIONAL Routine Closed displaced Ordered: 07/27/2018 THERAPY segmental fracture of shaft of left femur with routine healing, subsequent encounter as of this encounter Visit Diagnoses Diagnosis Closed displaced segmental fracture of shaft of left femur with routine healing, subsequent encounter - Primary
--- OUTSIDE RECORDS SUMMARY | 2018-08-18 03:18 | XMS REPORT | Encounter Summary ---
Author Author [facility] Organization [facility] Address Unknown Phone Unavailable Care Team Providers Care Ext Js Developer Name Role Phone Rudolph Bragg DO Unavailable Yari Antonio MA Unavailable Unavailable Melissa Taylor APRN Unavailable Shun Donohue MD Unavailable Unavailable No Pcp, Na PCP Unavailable Encounter Details Date Type Department Care Team Description 07/27/2018 Hospital [facility] Ted Pérez MD Encounter Hospital Radiology [address] [facility] [address] [place] [address] [address] FLO[address] [phone] [place] [address] [phone] Social History Tobacco Use Types Packs/Day Years Used Date Current Every Day Smoker Cigarettes 1 Smokeless Tobacco: Never Used Alcohol Use Drinks/Week oz/Week Comments Yes 1-2 Standard 0.5 - 1.0 occ drinks or equivalent Sex Assigned at Date Recorded Not on file as of this encounter Medications at Time of Discharge Medication Sig. Disp. Refills Start Date End Date acetaminophen (TYLENOL) Take 500 mg by mouth 500 mg tablet every 6 hours as needed for Pain. Max of 4,000 mg of acetaminophen in 24 hours. albuterol 0.5% Inhale 2.5 mg solution by (PROVENTIL; VENTOLIN) 2.5 nebulizer as directed mg/0.5 mL nebulizer every 6 hours as needed solution for Shortness of Breath or Wheezing. ALPRAZolam (XANAX) 0.25 Take 0.25 mg by mouth at mg tablet bedtime as needed for Anxiety. bacitracin 500 unit/gram Apply 0.5 inches ophthalmic ointment topically to affected area every 4 hours. bisacodyl (DULCOLAX) 10 Insert or Apply 10 mg to mg rectal suppository rectal area as directed daily. calcium carbonate Take by mouth. (CALCIUM 500 PO) cefdinir (OMNICEF) 300 mg Take 300 mg by mouth capsule every 12 hours. dexamethasone (DECADRON) Take 4 mg by mouth every 4 mg tablet 6 hours. Take with food. docusate (COLACE) 100 mg Take 100 mg by mouth capsule twice daily. HYDROcodone/acetaminophen Take 1 tablet by mouth (+) (NORCO) 10/325 mg every 6 hours as needed tablet for Pain oxyCODONE SR (OXYCONTIN) Take 20 mg by mouth every 20 mg tablet 12 hours senna/docusate Take 1 tablet by mouth (SENOKOT-S) 8.6/50 mg daily. tablet tamsulosin (FLOMAX) 0.4 Take 0.4 mg by mouth mg capsule daily. Do not crush, chew or open capsules. Take 30 minutes following the same meal each day. traZODone (DESYREL) 50 mg Take 50 mg by mouth at tablet bedtime as needed for Sleep. 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 routine healing, subsequent encounter in this encounter Results * FEMUR 2 VIEWS LEFT (07/27/2018 1:25 PM) Impressions Performed At FINDINGS/IMPRESSION: [facility] Redemonstration of intramedullary nail with femoral neck and distal screw fixation. Hardware is intact with unchanged alignment. Redemonstration of femoral neck and mid shaft fracture with moderate interval partial progressive osseous healing. Cutaneous parmjit have been removed. No new fracture identified. Redemonstration of cortical of lifting fracture along the distal medial femoral metadiaphysis from screw fixation, unchanged. Redemonstration of chondrocalcinosis within the knee joint. Approved by Haroldo Camarillo MD on 07/27/2018 4:12 PM By my electronic signature, I attest that I have personally reviewed the images for this examination and formulated the interpretations and opinions expressed in this report Finalized by Juan Solomon M.D. on 07/27/2018 5:16 PM. Dictated by Haroldo Camarillo MD on 07/27/2018 1:46 PM. Narrative Performed At FEMUR 2 VIEWS LEFT [facility] CLINICAL HISTORY: Male, 67 years old. Left femur fracture follow-up. COMPARISON:Femur radiograph June 19, 2018. TECHNIQUE:4 views of the left femur. 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 Left femur fracture follow-up. COMPARISON: Femur radiograph June 19, 2018. TECHNIQUE: 4 views of the left femur. IMPRESSION FINDINGS/IMPRESSION: Redemonstration of intramedullary nail with femoral neck and distal screw fixation. Hardware is intact with unchanged alignment. Redemonstration of femoral neck and mid shaft fracture with moderate interval partial progressive osseous healing. Cutaneous parmjit have been removed. No new fracture identified. Redemonstration of cortical of lifting fracture along the distal medial femoral metadiaphysis from screw fixation, unchanged. Redemonstration of chondrocalcinosis within the knee joint. Approved by Haroldo Camarillo MD on 07/27/2018 4:12 PM By my electronic signature, I attest that I have personally reviewed the images for this examination and formulated the interpretations and opinions expressed in this report Finalized by Juan Solomon M.D. on 07/27/2018 5:16 PM. Dictated by Haroldo Camarillo MD on 07/27/2018 1:46 PM. Performing Organization Address City/State/Zipcode Phone Number [facility] in this encounter Visit Diagnoses Diagnosis Closed displaced segmental fracture of shaft of left femur with routine healing, subsequent encounter
--- OUTSIDE RECORDS SUMMARY | 2018-08-18 03:18 | XMS REPORT | Clinical Summary ---
Author Author [facility] Organization [facility] Address Unknown Phone Unavailable Care Team Providers Care Neuro Ophthalmologist Name Role Phone PCP Unavailable Allergies Not on File Current Medications Not on file Active Problems Not on file Social History Tobacco Use Types Packs/Day Years Used Date Never Assessed Sex Assigned at Date Recorded Not on file Last Filed Vital Signs Not on file Plan of Treatment Not on file Results Not on filefrom Last 3 Months
--- OUTSIDE RECORDS SUMMARY | 2018-08-18 03:18 | XMS REPORT | Encounter Summary ---
Author Author [facility] Organization [facility] Address Unknown Phone Unavailable Care Team Providers Care Commercial Driver Name Role Phone Rudolph Bragg DO Unavailable Yari Antonio MA Unavailable Unavailable Melissa Taylor APRN Unavailable Shun Donohue MD Unavailable Unavailable No Pcp, Na PCP Unavailable Encounter Details Date Type Department Care Team Description 07/26/2018 Orders Only [facility] Ted Pérez MD Closed displaced Physicians - Orthopedics [address] segmental fracture of Orthopedics and Medical [address] shaft of left [place] [address] routine healing, [address] [phone] subsequent encounter [place], [place] (Primary Dx) [id number] Social History Tobacco Use Types Packs/Day Years Used Date Current Every Day Smoker Cigarettes 1 Smokeless Tobacco: Never Used Alcohol Use Drinks/Week oz/Week Comments Yes 1-2 Standard 0.5 - 1.0 occ drinks or equivalent Sex Assigned at Date Recorded Not on file as of this encounter Plan of Treatment Date Type Specialty Care Team Description 07/03/2018 Procedure Pass Urology as of this encounter Results * FEMUR 2 VIEWS [...] Interface, Radiant Results - 07/27/2018 5:19 PM TALENT ACQUISITION LEAD FEMUR 2 VIEWS LEFT CLINICAL HISTORY: Male, [...]
--- OUTSIDE RECORDS SUMMARY | 2018-08-18 03:18 | XMS REPORT | Clinical Summary ---
Author Author [facility] Organization [facility] Address Unknown Phone Unavailable Care Team Providers Care Supply Room Clerk Name Role Phone Rudolph Bragg DO Unavailable Yari Antonio MA Unavailable Unavailable Melissa Taylor APRN Unavailable Shun Donohue MD Unavailable Unavailable No Pcp, Na PCP Unavailable Source Comments Some departments are not documenting in the electronic medical record. If you do not see the information that you expected, contact Release of Information in the Health Information Management department at [phone] for further assistance in locating additional records.[facility] Allergies Active Allergy Reactions Severity Noted Date Comments Penicillins HIVES 09/27/2012 Welts too Current Medications Prescription Sig. Disp. Refills Start End Date Status Date ALPRAZolam (XANAX) 0.25 Take 0.25 mg by mouth at Active mg tablet bedtime as needed for Anxiety. albuterol 0.5% Inhale 2.5 mg solution by Active (PROVENTIL; VENTOLIN) 2.5 nebulizer as directed mg/0.5 mL nebulizer every 6 hours as needed solution for Shortness of Breath or Wheezing. calcium carbonate Take by mouth. Active (CALCIUM 500 PO) docusate (COLACE) 100 mg Take 100 mg by mouth Active capsule twice daily. traZODone (DESYREL) 50 mg Take 50 mg by mouth at Active tablet bedtime as needed for Sleep. tamsulosin (FLOMAX) 0.4 Take 0.4 mg by mouth Active mg capsule daily. Do not crush, chew or open capsules. Take 30 minutes following the same meal each day. dexamethasone (DECADRON) Take 4 mg by mouth every Active 4 mg tablet 6 hours. Take with food. senna/docusate Take 1 tablet by mouth Active (SENOKOT-S) 8.6/50 mg daily. tablet bisacodyl (DULCOLAX) 10 Insert or Apply 10 mg to Active mg rectal suppository rectal area as directed daily. oxyCODONE SR (OXYCONTIN) Take 20 mg by mouth every Active 20 mg tablet 12 hours bacitracin 500 unit/gram Apply 0.5 inches Active ophthalmic ointment topically to affected area every 4 hours. acetaminophen (TYLENOL) Take 500 mg by mouth Active 500 mg tablet every 6 hours as needed for Pain. Max of 4,000 mg of acetaminophen in 24 hours. HYDROcodone/acetaminophen Take 1 tablet by mouth Active (+) (NORCO) 10/325 mg every 6 hours as needed tablet for Pain cefdinir (OMNICEF) 300 mg Take 300 mg by mouth Active capsule every 12 hours. simethicone (MYLICON) 80 Chew 80 mg by mouth every 07/27/20 Discontin mg chew tablet 6 hours as needed for 18 ued Flatulence. magnesium hydroxide (MILK Take by mouth. 07/27/20 Discontin OF MAGNESIA PO) 18 ued polyethylene glycol 3350 Take 17 g by mouth daily. 07/27/20 Discontin (MIRALAX) 17 g packet 18 ued enoxaparin (LOVENOX) 40 Inject 40 mg under the 07/27/20 Discontin mg injection syringe skin every 12 hours. 18 ued Active Problems Problem Noted Date Benign prostatic hyperplasia (BPH) with straining on urination 06/29/2018 Overview: We discussed the etiology and pathophysiology of LUTS secondary to BPH as well as chronic prostate pain. We discussed management options, including medical management with alpha blockers and/or 5-AR inhibitor vs surgical management with TURP, PVP, UroLift, or HoLEP. I discussed risks and benefits of TURP and laser procedures in detail, including bleeding, infection, damage to surrounding structures, urinary incontinence, retrograde ejaculation, ED, procedure failure, need for additional procedures and anesthetic complications. The patient is highly symptomatic (AUA SS 21) and would prefer to proceed with surgery once his femur fracture is healed. We will plan to perform PSA screening and a TRUS volume study for operative planning. Closed displaced segmental fracture of shaft of left femur (HCC) 06/26/2018 Displaced fracture of left femoral neck (HCC) 06/26/2018 Prostatitis 12/31/2014 Overview: CT Pelvis 11/26/14: prominent prostate and SVs w/o inflammation Scrotal US 09/04/14: trace left hydrocele, otherwise normal exam Encounters Date Type Specialty Care Team Description 07/27/2018 Hospital Radiology Ted Pérez MD Encounter 07/27/2018 Office Visit Orthopedic Surgery Ted Pérez MD Closed displaced segmental fracture of shaft of left femur with routine healing, subsequent encounter (Primary Dx) 07/26/2018 Orders Only Orthopedic Surgery Ted Pérez MD Closed displaced segmental fracture of shaft of left femur with routine healing, subsequent encounter (Primary Dx) 06/30/2018 Telephone Urology Edward Stinson MD Results 06/29/2018 Hospital Lab Edward Stinson MD Benign prostatic Encounter hyperplasia with lower urinary tract symptoms 06/29/2018 Office Visit Urology Edward Stinson MD Benign prostatic hyperplasia (BPH) with straining on urination (Primary Dx) 06/19/2018 [facility] Radiology Ted Pérez MD Encounter 06/19/2018 Office Visit Orthopedic Surgery Ted Pérez MD Fracture (Primary Dx); Closed displaced segmental fracture of shaft of left femur, initial encounter (HCC); Displaced fracture of left femoral neck (HCC) 06/19/2018 Orders Only Orthopedic Surgery Ted Pérez MD Fracture ( Primary Dx) from Last 3 Months Family History Medical History Relation Name Comments [...] Vital Sign Reading Time Taken Blood Pressure 98/66 06/29/2018 8:14 AM CDT Pulse 71 06/29/2018 8:14 AM CDT Temperature 37.1 C (98.7 F) 03/12/2013 1:56 PM CDT Respiratory Rate - - Oxygen Saturation - - Inhaled Oxygen - - Concentration Weight 62.1 kg (137 lb) 07/27/2018 1:14 PM LSAT INSTRUCTOR Height 185.4 cm (6' 1") 07/27/2018 1:14 PM LSAT INSTRUCTOR Body Mass Index 18.07 07/27/2018 1:14 PM LSAT INSTRUCTOR Plan of Treatment Date Type Specialty Care Team Description 07/03/2018 Procedure Pass Urology Health Maintenance Due Date Last Done Comments HEPATITIS C SCREENING 1951 PHYSICAL (COMPREHENSIVE) 1958 EXAM DTAP/TDAP VACCINES (1 - 1969 Tdap) COLORECTAL CANCER 2001 SCREENING SHINGLES RECOMBINANT 2001 VACCINE (1 of 2) ABDOMINAL AORTIC ANEURYSM 2016 SCREENING PNEUMONIA (PCV13/PPSV23) 2016 VACCINES (1 of 2 - PCV13) INFLUENZA VACCINE 04/19/2018 Procedures Procedure Name Priority Date/Time Associated Diagnosis Comments FEMUR 2 VIEWS LEFT Routine 07/27/2018 Closed displaced Results for this 1:25 PM LSAT INSTRUCTOR segmental fracture of procedure are in the shaft of left femur with results section. routine healing, subsequent encounter URINALYSIS, MICROSCOPIC 06/29/2018 Enlarged prostate with Results for this 8:50 AM CDT lower urinary tract procedure are in the symptoms (LUTS) results section. Straining to void KNEE 1 OR 2 VIEWS RIGHT Routine 06/19/2018 Fracture Results for this 2:40 PM CDT procedure are in the results section. FEMUR 2 VIEWS LEFT Routine 06/19/2018 Fracture Results for this 2:40 PM CDT procedure are in the results section. from Last 3 Months Results * FEMUR 2 VIEWS LEFT (07/27/2018 1:25 PM) Only the most recent of 2 results within the time period is included. Impressions Performed At FINDINGS/IMPRESSION: [facility] [...] Interface, Radiant Results - 07/27/2018 5:19 PM LSAT INSTRUCTOR FEMUR 2 VIEWS LEFT CLINICAL HISTORY: Male, [...] on 07/27/2018 1:46 PM. Performing Organization Address City/[facility] Phone Number [facility] * URINALYSIS, MICROSCOPIC (06/29/2018 8:50 AM) WBCs,UA 0-2 0 - 2 /HPF [facility] RBCs,UA 2-10 0 - 3 /HPF [facility] Squamous Epithelial Cells 0-2 0 - 5 [facility] Amorphous Sedimate,UA FEW [facility] Performing Organization Address City/[facility] Phone Number [facility] [address] [place] [address] * KNEE 1 OR 2 VIEWS RIGHT (06/19/2018 2:40 PM) Impressions Performed At Findings/Impression: [facility] 2 views of the right knee were obtained. No evidence of acute fracture or dislocation. There is prominent chondrocalcinosis within the medial and lateral knee compartments without significant joint space narrowing, suggestive of CPPD arthropathy. Multiple calcifications are seen adjacent to the superior patella which may represent loose bodies or ossicles. There is enthesophyte formation at the insertion of the quadriceps tendon. There is minimal joint effusion. Approved by Jaron Colvin M.D. on 06/19/2018 4:06 PM By my electronic signature, I attest that I have personally reviewed the images for this examination and formulated the interpretations and opinions expressed in this report Finalized by Dylan Portillo M.D. on 06/19/2018 5:13 PM. Dictated by Jaron Colvin M.D. on 06/19/2018 2:50 PM. Narrative Performed At KNEE 1 OR 2 VIEWS RIGHT [facility] Clinical Indication: Male, 67 years old. Fracture. Comparison: No prior exams available for comparison. Procedure Note Interface, Radiant Results - 06/19/2018 5:16 PM CDT KNEE 1 OR 2 VIEWS RIGHT Clinical Indication: Male, 67 years old. Fracture. Comparison: No prior exams available for comparison. IMPRESSION Findings/Impression: 2 views of the right knee were obtained. No evidence of acute fracture or dislocation. There is prominent chondrocalcinosis within the medial and lateral knee compartments without significant joint space narrowing, suggestive of CPPD arthropathy. Multiple calcifications are seen adjacent to the superior patella which may represent loose bodies or ossicles. There is enthesophyte formation at the insertion of the quadriceps tendon. There is minimal joint effusion. Approved by Jaron Colvin M.D. on 06/19/2018 4:06 PM By my electronic signature, I attest that I have personally reviewed the images for this examination and formulated the interpretations and opinions expressed in this report Finalized by Dylan Portillo M.D. on 06/19/2018 5:13 PM. Dictated by Jaron Colvin M.D. on 06/19/2018 2:50 PM. Performing Organization Address City/State/Zipcode Phone Number [facility] from Last 3 Months
--- OUTSIDE RECORDS SUMMARY | 2018-08-18 03:18 | XMS REPORT | Encounter Summary ---
Author Author [facility] Organization [facility] Address Unknown Phone Unavailable Care Team Providers Care Promotions Manager Name Role Phone Rudolph Bragg DO Unavailable Yari Antonio MA Unavailable Unavailable Melissa Taylor APRN Unavailable Shun Donohue MD Unavailable Unavailable No Pcp, Na PCP Unavailable Reason for Referral * Radiology Services (Routine) Status Reason Specialty Diagnoses / Referred By Referred To Procedures Contact Contact New Request Radiology Diagnoses Edward Stinson MD Benign prostatic [address] unspecified [place], [place] whether lower [address] urinary tract Phone: symptoms present [phone] P Fax: rocedures [phone] CT ABD/PELV WO/W CONTRAST Reason for Visit * Reason Comments Results Encounter Details Date Type Department Care Team Description 06/30/2018 Telephone [facility] Edward Stinson MD Results Physicians - Urology [address] [address] [address] [phone] [place] [id number] Social History Tobacco Use Types Packs/Day Years Used Date Current Every Day Smoker Cigarettes 1 Smokeless Tobacco: Never Used Alcohol Use Drinks/Week oz/Week Comments Yes 1-2 Standard 0.5 - 1.0 occ drinks or equivalent Sex Assigned at Date Recorded Not on file as of this encounter Miscellaneous Notes * Addendum Note - Sarita Em LPN - 07/03/2018 3:49 PM CDT Addended by: SARITA EM on: 07/03/2018 03:49 PM Modules accepted: Orders * Telephone Encounter - Sarita Em LPN - 06/30/2018 4:35 PM CDT Called patient to let him know results and that Dr. Stinson would like him to get a CT and cysto done at the time of his next appointment on 09/07. I told patient that I would route this to Francis and she will work on getting him the CT scheduled same day as appointment and the cystoscopy as well. * Telephone Encounter - Sarita Em LPN - 06/30/2018 4:33 PM CDT ----- Message from Edward Stinson MD sent at 06/30/2018 9:46 AM CDT ----- Please let patient know he had RBC on UA. Needs CT urogram and cystoscopy. Cystoscopy can be added to be dome at time of his prostate volume study in this encounter Plan of Treatment Date Type Specialty Care Team Description 07/03/2018 Procedure Pass Urology Name Priority Associated Diagnoses Order Schedule CT ABD/PELV WO/W CONTRAST Routine Benign prostatic Expected: 07/03/2018 hyperplasia, unspecified (Approximate), Expires: whether lower urinary 07/03/2019 tract symptoms present as of this encounter Visit Diagnoses Diagnosis Benign prostatic hyperplasia, unspecified whether lower urinary tract symptoms present - Primary
--- OUTSIDE RECORDS SUMMARY | 2018-08-18 03:19 | XMS REPORT | Encounter Summary ---
Author Author [facility] Organization [facility] Address Unknown Phone Unavailable Care Team Providers Care Medical Assembly Name Role Phone Rudolph Bragg DO Unavailable Yari Antonio MA Unavailable Unavailable Melissa Taylor APRN Unavailable Shun Donohue MD Unavailable Unavailable No Pcp, Na PCP Unavailable Encounter Details Date Type Department Care Team Description 06/19/2018 Orders Only [facility] Ted Pérez MD Fracture (Primary Dx) Physicians - Orthopedics [address] [facility] [address] [place] [address] 2000 [facility] [phone] [place] [address] Social History Tobacco Use Types Packs/Day [...] encounter Results * FEMUR 2 VIEWS LEFT (06/19/2018 2:40 PM) Impressions Performed At 1. Prior intramedullary nail placement with femoral neck screw and distal [facility] fixation screw. No evidence of hardware fracture or loosening. 2. Small knee joint effusion with fluid level, which is likely due to postoperative gas. Correlation with time course of surgery is recommended. 3. Proximal femoral neck fracture without evidence of significant healing. 4. Femoral midshaft fracture with slight early callus formation. 5. Cortical up lifting fracture involving the medial distal femoral metadiaphysis from the interlocking screw. Approved by Jaron Colvin M.D. on 06/19/2018 4:15 PM By my electronic signature, I attest that I have personally reviewed the images for this examination and formulated the interpretations and opinions expressed in this report Finalized by Dylan Portillo M.D. on 06/19/2018 5:13 PM. Dictated by Jaron Colvin M.D. on 06/19/2018 4:07 PM. Narrative Performed At FEMUR 2 VIEWS LEFT [facility] Clinical Indication: Male, 67 years old. Fracture. Comparison: No prior exams available for comparison. Findings: 4 views of the left femur are obtained. Prior intramedullary nail placement with femoral neck screw and distal fixation screw. A fracture is seen within the proximal femur at the base of the cervical neck with satisfactory alignment. There is a mildly displaced fracture of the greater trochanter. There is a mildly displaced fracture through the femoral midshaft with minimal early callus formation. There is a cortical uplifting fracture involving the medial distal metadiaphysis from the interlocking screw. Skin parmjit are seen within the anterolateral soft tissues. There is a small knee joint effusion with a fluid level, likely from postoperative gas. Correlation with time course from surgery is recommended. Chondrocalcinosis is noted within the patellofemoral and knee joints. Procedure Note Interface, Radiant Results - 06/19/2018 5:16 PM CDT FEMUR 2 VIEWS LEFT Clinical Indication: Male, 67 years old. Fracture. Comparison: No prior exams available for comparison. Findings: 4 views of the left femur are obtained. Prior intramedullary nail placement with femoral neck screw and distal fixation screw. A fracture is seen within the proximal femur at the base of the cervical neck with satisfactory alignment. There is a mildly displaced fracture of the greater trochanter. There is a mildly displaced fracture through the femoral midshaft with minimal early callus formation. There is a cortical uplifting fracture involving the medial distal metadiaphysis from the interlocking screw. Skin parmjit are seen within the anterolateral soft tissues. There is a small knee joint effusion with a fluid level, likely from postoperative gas. Correlation with time course from surgery is recommended. Chondrocalcinosis is noted within the patellofemoral and knee joints. IMPRESSION 1. Prior intramedullary nail placement with femoral neck screw and distal fixation screw. No evidence of hardware fracture or loosening. 2. Small knee joint effusion with fluid level, which is likely due to postoperative gas. Correlation with time course of surgery is recommended. 3. Proximal femoral neck fracture without evidence of significant healing. 4. Femoral midshaft fracture with slight early callus formation. 5. Cortical up lifting fracture involving the medial distal femoral metadiaphysis from the interlocking screw. Approved by Jaron Colvin M.D. on 06/19/2018 4:15 PM By my electronic signature, I attest that I have personally reviewed the images for this examination and formulated the interpretations and opinions expressed in this report Finalized by Dylan Portillo M.D. on 06/19/2018 5:13 PM. Dictated by Jaron Colvin M.D. on 06/19/2018 4:07 PM. Performing Organization Address City/State/Zipcode Phone Number [facility] in this encounter Visit Diagnoses Diagnosis Fracture - Primary Closed fracture of unspecified bone
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
--- OUTSIDE RECORDS SUMMARY | 2018-08-18 03:19 | XMS REPORT | Encounter Summary ---
Author Author [facility] Organization [facility] Address Unknown Phone Unavailable Care Team Providers Care Strike Planning Applications Name Role Phone Rudolph Bragg DO Unavailable Yari Antonio MA Unavailable Unavailable Melissa Taylor APRN Unavailable Shun Donohue MD Unavailable Unavailable No Pcp, Na PCP Unavailable Encounter Details Date Type Department Care Team Description 06/29/2018 Hospital [facility] Edward Stinson MD Benign prostatic Encounter [facility] 1st fl [address] hyperplasia with lower [address] [place] [address] [place] [address] [phone] Social History Tobacco Use Types Packs/Day Years [...] carbonate Take by mouth. (CALCIUM 500 PO) dexamethasone (DECADRON) Take 4 mg by mouth [...] at tablet bedtime as needed for Sleep. enoxaparin (LOVENOX) 40 Inject 40 mg under the 07/27/2018 mg injection syringe skin every 12 hours. magnesium hydroxide (MILK Take by mouth. 07/27/2018 OF MAGNESIA PO) polyethylene glycol 3350 Take 17 g by mouth daily. 07/27/2018 (MIRALAX) 17 g packet simethicone (MYLICON) 80 Chew 80 mg by mouth every 07/27/2018 mg chew tablet 6 hours as needed for Flatulence. as of this encounter Progress Notes * Edward Stinson MD - 06/30/2018 9:46 AM CDT Please let patient know he had RBC on UA. Needs CT urogram and cystoscopy. Cystoscopy can be added to be dome at time of his prostate volume study in this encounter Plan of Treatment Date Type Specialty Care Team Description 07/03/2018 Procedure Pass Urology as of this encounter Procedures Procedure Name Priority Date/Time Associated Diagnosis Comments URINALYSIS, MICROSCOPIC 06/29/2018 Enlarged prostate with Results for this 8:50 AM CDT lower urinary tract procedure are in the symptoms (LUTS) results section. Straining to void in this encounter Results * URINALYSIS, MICROSCOPIC (06/29/2018 8:50 AM) WBCs,UA 0-2 0 - 2 /HPF [facility] RBCs,UA 2-10 0 - 3 /HPF [facility] Squamous Epithelial Cells 0-2 0 - 5 [facility] Amorphous Sedimate,UA FEW [facility] Performing Organization Address City/State/Zipcode Phone Number [facility] [address] [place] [address] in this encounter Visit Diagnoses Diagnosis Enlarged prostate with lower urinary tract symptoms (LUTS) Hypertrophy of prostate with urinary obstruction and other lower urinary tract symptoms (LUTS) Straining to void Straining on urination Admitting Diagnoses Diagnosis Benign prostatic hyperplasia with lower urinary tract symptoms Straining to void
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
--- OUTSIDE RECORDS SUMMARY | 2018-08-18 03:19 | XMS REPORT | Encounter Summary ---
Author Author [facility] Organization [facility] Address Unknown Phone Unavailable Care Team Providers Care Limb Driver Name Role Phone Rudolph Bragg DO Unavailable Yari Antonio MA Unavailable Unavailable Melissa Taylor APRN Unavailable Shun Donohue MD Unavailable Unavailable No Pcp, Na PCP Unavailable Encounter Details Date Type Department Care Team Description 06/19/2018 Hospital [facility] Ted Pérez MD Encounter Hospital Radiology [address] [facility] [place] [address] [place] [address] [address] FLO[address] [phone] [place] [address] [phone] Social History Tobacco Use Types Packs/Day Years [...] needed for Flatulence. as of this encounter Plan of Treatment Date Type Specialty Care Team Description 07/03/2018 Procedure Pass Urology as of this encounter Procedures Procedure Name Priority Date/Time Associated Diagnosis Comments KNEE 1 OR 2 VIEWS RIGHT Routine 06/19/2018 Fracture Results for this 2:40 PM CDT procedure are in the results section. FEMUR 2 VIEWS LEFT Routine 06/19/2018 Fracture Results for this 2:40 PM CDT procedure are in the results section. in this encounter Results * KNEE 1 OR 2 VIEWS RIGHT [...] Address City/State/Zipcode Phone Number [facility] RESULTS * FEMUR 2 VIEWS LEFT (06/19/2018 2:40 [...] in this encounter Visit Diagnoses Diagnosis Fracture Closed fracture of unspecified bone
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
--- OUTSIDE RECORDS SUMMARY | 2018-08-18 03:20 | XMS REPORT ---
Author Author CLEO DUQUE Organization [facility] Address [address] [place] [address] Care Team Providers Care Energy Efficient Site Manager Name Role Phone CLEO DUQUE Unavailable PROBLEMS Type Condition ICD9-CM Code RUN78-WG Code Onset Dates Condition Status SNOMED Code Problem Anxiety F41.9 Active 27906309 Problem Prostatitis, chronic N41.1 Active 71279234 Problem Benign non-nodular prostatic hyperplasia with lower urinary tract symptoms N40.1 Active 375754347 Problem Benign prostatic hyperplasia, unspecified whether lower urinary tract symptoms present N40.0 Active 463894610 Problem Arthritis M19.90 Active 4195653 ALLERGIES Substance Reaction Event Type Date Status Penicillin V Potassium rash Drug Allergy May, Active ENCOUNTERS Encounter Location Date Diagnosis [facility] [id number] [place] [address] 28343- 6979 Jun, [facility] [address] 06901- 1171 May, [facility] [id number] [place] [address] 52221- 7546 May, Anxiety F41.9 [facility] [id number] [place] [address] 94169 -7620 May, [facility] [id number] [place] [address] 54380- 5703 May, [facility] [address] 63039- 4927 Feb, Prostatitis, chronic N41.1 and Weight loss R63.4 [facility] [id number] [place] [address] 79028- 9844 January, Benign prostatic hyperplasia, unspecified whether lower urinary tract symptoms present N40.0 ; Acute prostatitis N41.0 and Exposure to hepatitis C Z20.5 [facility] [id number] [place] [address] 52667 -0825 Aug, URI, acute J06.9 and Cough in adult patient R05 [facility] [id number] [place] [address] 25741 -1010 Apr, Encounter for immunization Z23 and Laceration without foreign body of right little finger without damage to nail, initial encounter S61.216A [facility] [id number] [place] [address] 62694 -3760 Feb, Left wrist pain M25.532 [facility] [place] [address] 54220 -8812 Nov, Arthritis M19.90 [place] [address] 28311- 8909 Jun, Benign non-nodular prostatic hyperplasia with lower urinary tract symptoms N40.1 and Prostatitis, unspecified prostatitis type N41.9 [place] [id number] [place] [address] 63133- 9003 May, Prostatitis, unspecified prostatitis type N41.9 [place] [id number] [place] [address] 66244- 8475 Aug, Restless legs syndrome G25.81 ; Myoclonus G25.3 and Folate deficiency E53.8 [place] [id number] [place] [address] 44324- 3161 Aug, [facility] [id number] [place] [address] 69809 -9389 Jul, Ankle pain, right M25.571 [place] [id number] [place] [address] 67219- 4392 Jul, Benign non-nodular prostatic hyperplasia with lower urinary tract symptoms N40.1 and Restless leg syndrome G25.81 [place] [address] [address]- 2817 16 May, 2015 Hypertrophy (benign) of prostate without urinary obstruction and other lower urinary tract symptoms [LUTS] 600.00 [facility] [address]65[address] [address]- 0846 January, [facility] [address] [place] [address]- 1096 Dec, [facility] [address]65[address] [address]- 0329 Dec, [facility] [address] [place] [address]- 1246 Oct, [facility] [id number] [address]- 2216 Oct, [facility] [address]65[address] [address]- 1636 Oct, [facility] [address]65[address] [address]- 8084 Oct, [facility] [address] [place] [address]- 4616 Oct, [facility] [address]65100[place] [address]- 6579 Sep, [facility] [address]65100[place] [address]- 0386 Sep, [facility] [address] [address]- 2546 Sep, [facility] [address] [address]- 4326 Sep, [facility] [address] [address]- 8156 Aug, [facility] [address]65100[place] [address]- 3366 Aug, [facility] [address] [id number] [address]- 8174 Aug, [facility] [address] [facility] [id number] [place] [address]- 7637 Aug, [facility] [address] [facility] [id number] [place] [address]- 3052 Jul, [facility] [address] [facility] [id number] [place] [address]- 1038 Jul, [facility] [address] [id number] [place] [address]- 5551 Apr, [facility] [address] [id number] [place] 2353 Apr, [facility] [address] [place] [id number] [place] [address]- 8036 Apr, [facility] [address] [id number] [address]- 5329 Apr, [facility] [address] [facility] [id number] [place] [address]- 5809 Mar, [facility] [address] [place] [id number]- 8290 Mar, [facility] [address] [id number] [address]- 6975 Mar, [facility] [address] [place] [id number]- 2655 Mar, [facility] [address] [id number] 7146 Mar, [facility] [address] [id number] 1548 Mar, IMMUNIZATIONS No Known Immunizations SOCIAL HISTORY Never Assessed REASON FOR VISIT Prostate, -Ronald KING , PT tested moderately severe depression on the PHQ2 - Ronald KING PLAN OF CARE Activity Details Follow Up 4 Weeks Reason:anxiety VITAL SIGNS Height 73 in 2018-05-29 Weight 139.3 lbs 2018-05-29 Temperature 97.7 degrees Fahrenheit 2018-05-29 Heart Rate 66 bpm 2018-05-29 Respiratory Rate 20 2018-05-29 Oximetry 99 % 2018-05-29 BMI 18.38 kg/m2 2018-05-29 Blood pressure systolic 132 mmHg 2018-05-29 Blood pressure diastolic 70 mmHg 2018-05-29 MEDICATIONS Medication Instructions Dosage Frequency Start Date End Date Duration Status Finasteride 5 mg Orally Once a day 1 tablet 24h January, 30 day(s) Active Xanax 0.5 MG Orally Twice a day 1 tablet 12h 10 May, 2018 Active Flomax 0.4 mg 1 capsule by Oral route 1 time per day 24h Active RESULTS No Results PROCEDURES No Known procedures INSTRUCTIONS MEDICATIONS ADMINISTERED No Known Medications MEDICAL (GENERAL) HISTORY Type Description Date Medical History Patient denies medical hx Surgical History appendectomy Surgical History tonsillectomy Surgical History Teeth removed
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
--- OUTSIDE RECORDS SUMMARY | 2018-08-18 03:20 | XMS REPORT ---
Author Author CLEO DUQUE Organization [facility] Address [address] [place] [address] Care Team Providers Care Investigative Reporter Name Role Phone CLEO DUQUE Unavailable PROBLEMS Type Condition ICD9-CM Code MCQ67-TA Code Onset Dates Condition Status SNOMED Code Problem Anxiety F41.9 Active 62416674 Problem Prostatitis, chronic N41.1 Active 32003816 Problem Benign non-nodular prostatic hyperplasia with lower urinary tract symptoms N40.1 Active 548199443 Problem Benign prostatic hyperplasia, unspecified whether lower urinary tract symptoms present N40.0 Active 722860174 Problem Arthritis M19.90 Active 2894755 ALLERGIES No Information ENCOUNTERS Encounter Location Date Diagnosis [facility] [id number] [place] [address] 69307- 0691 Jun, [facility] [id number] [place] [address] 06010- 2741 May, [facility] [id number] [place] [address] 59636- 1436 May, Anxiety F41.9 [facility] [id number] [place] [address] 65090 -5122 May, [facility] [id number] [place] [address] 51426- 7469 May, [facility] [id number] [place] [address] 31679- 8841 Feb, Prostatitis, chronic N41.1 and Weight loss R63.4 [facility] [id number] [place] [address] 85820- 0047 January, Benign prostatic hyperplasia, unspecified whether lower urinary tract symptoms present N40.0 ; Acute prostatitis N41.0 and Exposure to hepatitis C Z20.5 [facility] [id number] [place] [address] 51305 -1499 Aug, URI, acute J06.9 and Cough in adult patient R05 [facility] [id number] [place] [address] 72318 -0925 Apr, Encounter for immunization Z23 and Laceration without foreign body of right little finger without damage to nail, initial encounter S61.216A [facility] [address] 57466 -2860 Feb, Left wrist pain M25.532 [facility] [address] 28045 -1300 Nov, Arthritis M19.90 [place] [address] 57391- 8593 Jun, Benign non-nodular prostatic hyperplasia with lower urinary tract symptoms N40.1 and Prostatitis, unspecified prostatitis type N41.9 [place] [id number] [place] [address] 35500- 8876 May, Prostatitis, unspecified prostatitis type N41.9 [place] [address] 73802- 5705 Aug, Restless legs syndrome G25.81 ; Myoclonus G25.3 and Folate deficiency E53.8 [place] [id number] [place] [address] 11969- 6314 Aug, [facility] [id number] [place] [address] 72112 -8421 Jul, Ankle pain, right M25.571 [place] [address] 14805- 0982 Jul, Benign non-nodular prostatic hyperplasia with lower urinary tract symptoms N40.1 and Restless leg syndrome G25.81 [place] [address] 48367- 6970 May, Hypertrophy (benign) of prostate without urinary obstruction and other lower urinary tract symptoms [LUTS] 600.00 [facility] [address] [place] [address] 00043- 1756 January, [facility] [address], [place] [address]- 7006 Dec, [facility] [id number] [place] [address] 40554- 6411 Dec, [facility] [id number] [place] [address] 67887- 5206 Oct, [facility] [id number] [place] [address] 92294- 7836 Oct, [facility] [id number] [place] [address] 43198- 6416 Oct, [facility] [id number] [place] [address] 46693- 6659 Oct, [facility] [address], [place] [address]- 3729 Oct, [facility] [address], [place] [address]- 8156 Sep, [facility] [address], [place] [address]- 0806 Sep, [facility] [address], [place] [address]- 4046 Sep, [facility] [address], [place] [address]- 9186 Sep, [facility] [address], [place] [address]- 7756 Aug, [facility] [address], [place] [address]- 6206 Aug, [facility] [id number] 2521 Aug, [facility] [address] [facility] [id number] 1778 Aug, [facility] [address] 5740 Jul, [facility] [address] 3283 Jul, [facility] [address] [facility] [id number] 5299 Apr, [facility] [address] [facility] [id number] 3669 Apr, [facility] [address] [facility] [id number], [place] [address]- 3156 Apr, [facility] [address], [place] [address]- 6586 Apr, [facility] [address], [place] [address]- 7261 Mar, [facility] [address], [place] [address]- 2318 Mar, [facility] [address], [place] [address]- 7889 Mar, [facility] [id number], [place] [address]- 0443 Mar, [facility] [id number], [place] [address]- 8532 Mar, [facility] [id number], [place] [address]- 1114 Mar, IMMUNIZATIONS No Known Immunizations SOCIAL HISTORY Never Assessed REASON FOR VISIT follow up PLAN OF CARE VITAL SIGNS MEDICATIONS Unknown Medications RESULTS No Results PROCEDURES No Known procedures INSTRUCTIONS MEDICATIONS ADMINISTERED No Known Medications MEDICAL (GENERAL) HISTORY Type Description Date Medical History Patient denies medical hx Surgical History appendectomy Surgical History tonsillectomy Surgical History Teeth removed
--- OUTSIDE RECORDS SUMMARY | 2018-08-18 03:20 | XMS REPORT ---
Author Author CLEO DUQUE Organization [facility] Address [address] [place] [address] Care Team Providers Care Assistant Corporation Counsel Name Role Phone CLEO DUQUE Unavailable PROBLEMS Type Condition ICD9-CM Code JTP53-QY Code Onset Dates Condition Status SNOMED Code Problem Anxiety F41.9 Active 83234788 Problem Prostatitis, chronic N41.1 Active 67834700 Problem Benign non-nodular prostatic hyperplasia with lower urinary tract symptoms N40.1 Active 048848616 Problem Benign prostatic hyperplasia, unspecified whether lower urinary tract symptoms present N40.0 Active 477048073 Problem Arthritis M19.90 Active 0130352 ALLERGIES No Information ENCOUNTERS Encounter Location Date Diagnosis [facility] [id number] [place] [address] 29789- 8438 Jun, [facility] [id number] [place] [address] 59984- 0632 Jun, [facility] [address] 89322- 8103 May, [facility] [id number] [place] [address] 06047- 8324 May, Anxiety F41.9 [facility] [id number] [place] [address] 88821 -0057 May, [facility] [address] 86094- 5456 May, [facility] [address] 89683- 1524 Feb, Prostatitis, chronic N41.1 and Weight loss R63.4 [facility] [address] 68235- 2884 January, Benign prostatic hyperplasia, unspecified whether lower urinary tract symptoms present N40.0 ; Acute prostatitis N41.0 and Exposure to hepatitis C Z20.5 [facility] [address] 57628 -8022 Aug, URI, acute J06.9 and Cough in adult patient R05 [facility] [address] 94181 -4927 Apr, Encounter for immunization Z23 and Laceration without foreign body of right little finger without damage to nail, initial encounter S61.216A [facility] [address] 27937 -6707 Feb, Left wrist pain M25.532 [facility] [address] 74536 -5659 Nov, Arthritis M19.[address] 04139- 6797 Jun, Benign non-nodular prostatic hyperplasia with lower urinary tract symptoms N40.1 and Prostatitis, unspecified prostatitis type N41.9 [place] [address] 11316- 7736 May, Prostatitis, unspecified prostatitis type N41.9 [place] [address] 13986- 1859 Aug, Restless legs syndrome G25.81 ; Myoclonus G25.3 and Folate deficiency E53.8 [place] [address] 40243- 0684 Aug, [facility] [address] 87813 -4755 Jul, Ankle pain, right M25.571 [place] [address] 60522- 1293 Jul, Benign non-nodular prostatic hyperplasia with lower urinary tract symptoms N40.1 and Restless leg syndrome G25.81 [facility] [address] 7764 16 May, 2015 Hypertrophy (benign) of prostate without urinary obstruction and other lower urinary tract symptoms [LUTS] 600.00 [facility] [address], [place] [address] 4252 January, [facility] [id number] [place] [address] 690151- 1250 Dec, [facility] [id number], [place] [address]- 8138 Dec, [facility] [id number] [place] [address] 899890- 2386 Oct, [facility] [id number], [place] [address]- 2476 Oct, [facility] [id number] [place] [address] 17899- 7204 Oct, [facility] [address], [place] [address]- 5507 Oct, [facility] [address]- 7528 Oct, [facility] [address], [place] [address]- 6176 Sep, [facility] [address]- 3128 Sep, [facility] [address]- 5555 Sep, [facility] [address], [place] [address]- 5846 Sep, [facility] [address], [place] [address]- 8057 Aug, [facility] [id number], [place] [address]- 8206 Aug, [facility] [address] [facility] [id number] [address]- 3079 Aug, [facility] [address]- 0654 Aug, [facility] [address], [place] [address]- 0718 Jul, [facility] [address], [place] [address]- 2183 Jul, [facility] [address]- 4483 Apr, [facility] [address], [place] [address]- 7988 Apr, [facility] [address], [place] [address]- 9230 Apr, [facility] [address], [place] [address]- 2380 Apr, [facility] [address], [place] [address]- 2168 Mar, [facility] [address], [place] [address]- 0503 Mar, [facility] [address], [place] [address]- 9384 Mar, [facility] [id number], [place] [address]- 6643 Mar, [facility] [address], [place] [address]- 2053 Mar, [facility] [address], [place] [address]- 2258 Mar, IMMUNIZATIONS No Known Immunizations SOCIAL HISTORY Never Assessed REASON FOR VISIT PLAN OF CARE VITAL SIGNS MEDICATIONS Unknown Medications RESULTS No Results PROCEDURES No Known procedures INSTRUCTIONS MEDICATIONS ADMINISTERED No Known Medications MEDICAL (GENERAL) HISTORY Type Description Date Medical History Patient denies medical hx Surgical History appendectomy Surgical History tonsillectomy Surgical History Teeth removed
--- OUTSIDE RECORDS SUMMARY | 2018-08-18 03:20 | XMS REPORT ---
Author Author CLEO DUQUE Organization [facility] [place] Address [address] [place] [address] Care Team Providers Care Bistro Attendant Name Role Phone CLEO DUQUE Unavailable PROBLEMS Type Condition ICD9-CM Code VZN31-DB Code Onset Dates Condition Status SNOMED Code Problem Anxiety F41.9 Active 41843074 Problem Prostatitis, chronic N41.1 Active 54863214 Problem Benign non-nodular prostatic hyperplasia with lower urinary tract symptoms N40.1 Active 918641000 Problem Benign prostatic hyperplasia, unspecified whether lower urinary tract symptoms present N40.0 Active 450248218 Problem Arthritis M19.90 Active 2253123 ALLERGIES No Information ENCOUNTERS Encounter Location Date Diagnosis [facility] [place] [id number] [place] [address] 62610- 9598 Jun, [facility] [place] [id number] [place] [address] 71252- 5833 May, [facility] [place] [id number] [place] [address] 80017- 1548 May, Anxiety F41.9 [facility] [id number] [place] [address] 02925 -1704 May, [facility] [place] [id number] [place] [address] 53515- 2549 May, [facility] [place] [id number] [place] [address] 33357- 9118 Feb, Prostatitis, chronic N41.1 and Weight loss R63.4 [facility] [place] [id number] [place] [address] 21432- 5665 January, Benign prostatic hyperplasia, unspecified whether lower urinary tract symptoms present N40.0 ; Acute prostatitis N41.0 and Exposure to hepatitis C Z20.5 [facility] [id number] [place] [address] 29505 -6533 Aug, URI, acute J06.9 and Cough in adult patient R05 [facility] [id number] [place] [address] 69291 -0877 Apr, Encounter for immunization Z23 and Laceration without foreign body of right little finger without damage to nail, initial encounter S61.216A [facility] [address] 24[address] Feb, Left wrist pain M25.532 [facility] [address] [address]77 Nov, Arthritis M19.90 [place] [address] 52967- 5510 Jun, Benign non-nodular prostatic hyperplasia with lower urinary tract symptoms N40.1 and Prostatitis, unspecified prostatitis type N41.9 [place] [id number] [place] [address] 71479- 3537 May, Prostatitis, unspecified prostatitis type N41.9 [place] [address] 39927- 1941 Aug, Restless legs syndrome G25.81 ; Myoclonus G25.3 and Folate deficiency E53.8 [place] [id number] [place] [address] 03883- 7967 Aug, [facility] [id number] [place] [address] 00751 -2724 Jul, Ankle pain, right M25.571 [place] [address] 54087- 3630 Jul, Benign non-nodular prostatic hyperplasia with lower urinary tract symptoms N40.1 and Restless leg syndrome G25.81 [place] [address] 23551- 3069 May, Hypertrophy (benign) of prostate without urinary obstruction and other lower urinary tract symptoms [LUTS] 600.00 [facility] [address] [place] [address] 27229- 8886 January, [facility] [address] [address] 1376 Dec, [facility] [id number] [place] [address] 41993- 2597 Dec, [facility] [id number] [place] [address] 47801- 6549 Oct, [facility] [id number] [place] [address] 28548- 9616 Oct, [facility] [id number] [place] [address] 44053- 5726 Oct, [facility] [id number] [place] [address] 96992- 9810 Oct, [facility] [address] [address] 0158 Oct, [facility] [address] [address] 2436 Sep, [facility] [address] [address] 0446 Sep, [facility] [address] [address]- 7006 Sep, [facility] [address] [address] 4156 Sep, [facility] [address] [address] 2696 Aug, [facility] [address] [address]- 0096 Aug, [facility] [id number] [address]- 2092 Aug, [facility] [place] [address] [facility] [id number] [address] 2660 Aug, [facility] [place] [address] [address] 8219 Jul, [facility] [place] [address] [address]- 2746 Jul, [facility] [place] [address] [facility] [id number] [address]- 7565 Apr, [facility] [place] [address] [facility] [id number] [address] Apr, [facility] [place] [address] [facility] [id number] [address]- 0112 Apr, [facility] [place] [address] [address]- 7290 Apr, [facility] [place] [address] [address]- 0188 Mar, [facility] [place] [address] [address]- 7045 Mar, [facility] [place] [address] [address]- 3657 Mar, [facility] [place] [id number] [address]- 6224 Mar, [facility] [place] [id number] [address]- 6879 Mar, [facility] [place] [id number] [address]- 3009 Mar, IMMUNIZATIONS No Known Immunizations SOCIAL HISTORY Never Assessed REASON FOR VISIT BH/AT phone response PLAN OF CARE VITAL SIGNS MEDICATIONS Unknown Medications RESULTS No Results PROCEDURES No Known procedures INSTRUCTIONS MEDICATIONS ADMINISTERED No Known Medications MEDICAL (GENERAL) HISTORY Type Description Date Medical History Patient denies medical hx Surgical History appendectomy Surgical History tonsillectomy Surgical History Teeth removed
--- OUTSIDE RECORDS SUMMARY | 2018-08-18 03:21 | XMS REPORT ---
Author Author CLEO DUQUE Organization [facility] Address [address] [place] [address] Care Team Providers Care Rn Cardiovascular Icu Name Role Phone CLEO DUQUE Unavailable PROBLEMS Type Condition ICD9-CM Code DNR71-QL Code Onset Dates Condition Status SNOMED Code Problem Anxiety F41.9 Active 26814543 Problem Prostatitis, chronic N41.1 Active 47926440 Problem Benign non-nodular prostatic hyperplasia with lower urinary tract symptoms N40.1 Active 600304091 Problem Benign prostatic hyperplasia, unspecified whether lower urinary tract symptoms present N40.0 Active 110102872 Problem Arthritis M19.90 Active 5634519 ALLERGIES No Information ENCOUNTERS Encounter Location Date Diagnosis [facility] [id number] [place] [address] 01885- 4403 Jun, [facility] [id number] [place] [address] 35937- 0209 May, [facility] [id number] [place] [address] 98665- 2086 May, Anxiety F41.9 [facility] [id number] [place] [address] 94483 -6775 May, [facility] [id number] [place] [address] 87852- 8663 May, [facility] [id number] [place] [address] 35269- 7046 Feb, Prostatitis, chronic N41.1 and Weight loss R63.4 [facility] [id number] [place] [address] 42881- 7414 January, Benign prostatic hyperplasia, unspecified whether lower urinary tract symptoms present N40.0 ; Acute prostatitis N41.0 and Exposure to hepatitis C Z20.5 [facility] [id number] [place] [address] 45523 -7870 Aug, URI, acute J06.9 and Cough in adult patient R05 [facility] [id number] [place] [address] 23890 -2756 Apr, Encounter for immunization Z23 and Laceration without foreign body of right little finger without damage to nail, initial encounter S61.216A [facility] [address] [address]58 -6333 Feb, Left wrist pain M25.532 [facility] [address] [address]197 -7868 Nov, Arthritis M19.90 [place] [address] 10069- 3068 Jun, Benign non-nodular prostatic hyperplasia with lower urinary tract symptoms N40.1 and Prostatitis, unspecified prostatitis type N41.9 [place] [id number] [place] [address] 88409- 5646 May, Prostatitis, unspecified prostatitis type N41.9 [place] [address] 10868- 7796 Aug, Restless legs syndrome G25.81 ; Myoclonus G25.3 and Folate deficiency E53.8 [place] [id number] [place] [address] 61324- 4748 Aug, [facility] [id number] [place] [address] 31161 -8181 Jul, Ankle pain, right M25.571 [place] [address] 98408- 9337 Jul, Benign non-nodular prostatic hyperplasia with lower urinary tract symptoms N40.1 and Restless leg syndrome G25.81 [place] [address] 72132- 1159 May, Hypertrophy (benign) of prostate without urinary obstruction and other lower urinary tract symptoms [LUTS] 600.00 [facility] [address] [place] [address] 67206- 9136 January, [facility] [address] [address]- 7946 Dec, [facility] [id number] [place] [address] 05289- 6613 Dec, [facility] [id number] [place] [address] 50844- 3191 Oct, [facility] [id number] [place] [address] 90209- 5636 Oct, [facility] [id number] [place] [address] 87579- 5386 Oct, [facility] [id number] [place] [address] 48944- 8950 Oct, [facility] [address], [place] [address]- 0880 Oct, [facility] [address], [place] [address]- 6476 Sep, [facility] [address], [place] [address]- 4256 Sep, [facility] [address], [place] [address]- 3546 Sep, [facility] [address], [place] [address]- 4556 Sep, [facility] [address], [place] [address]- 9266 Aug, [facility] [address], [place] [address]- 1486 Aug, [facility] [id number] [address]- 9789 Aug, [facility] [address] [facility] [id number] [address] Aug, [facility] [address] [facility] [id number] [address]666 Jul, [facility] [address] [facility] [id number] 5319 Jul, [facility] [address] [facility] [id number] 2586 Apr, [facility] [address] [facility] [id number] 5468 Apr, [facility] [address] [facility] [id number], [place] [address]- 3711 Apr, [facility] [address], [place] [address]- 8466 Apr, [facility] [address] [facility] [id number], [place] [address]- 4640 Mar, [facility] [address], [place] [address]- 9306 Mar, [facility] [address] [id number], [place] [address]- 3070 Mar, [facility] [id number], [place] [address]- 6693 Mar, [facility] [address] [facility] [id number], [place] [address]- 2306 Mar, [facility] [address] [id number] [address]- 2380 Mar, IMMUNIZATIONS No Known Immunizations SOCIAL HISTORY Never Assessed REASON FOR VISIT PLAN OF CARE VITAL SIGNS MEDICATIONS Unknown Medications RESULTS No Results PROCEDURES No Known procedures INSTRUCTIONS MEDICATIONS ADMINISTERED No Known Medications MEDICAL (GENERAL) HISTORY Type Description Date Medical History Patient denies medical hx Surgical History appendectomy Surgical History tonsillectomy Surgical History Teeth removed
--- OUTSIDE RECORDS SUMMARY | 2018-08-18 03:22 | XMS REPORT | Continuity of Care Document ---
Author Author [facility] Address Unknown Phone Unavailable Allergies Active Description Code Type Severity Reaction Onset Reported/Identified Relationship to Patient Clinical Status Yes ampicillin Drug Allergy N/A N/A 04/02/2014 Yes No Allergy Information Available [id number] Drug Allergy Unknown N/A 2014 Yes Penicillins [id number] Drug Allergy Unknown N/A 06/01/2018 Medications There is no data. 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 AND OTHER LOWER URINARY TRACT SYMPTOMS (LUTS) 04/26/2014 SNEHA BRIONES BRYCE K 607.84 IMPOTENCE OF ORGANIC ORIGIN 04/26/2014 SNEHA BRIONES BRYCE K 701.1 KERATODERMA ACQUIRED 04/26/2014 SNEHA BRIONES, BRYCE K V16.9 FAMILY HISTORY OF UNSPECIFIED [...] OTHER LOWER URINARY TRACT SYMPTOMS (LUTS) 04/26/2014 CLOE DUQUE APRN 607.84 IMPOTENCE OF ORGANIC ORIGIN [...] 601.9 PROSTATITIS UNSPECIFIED 08/28/2014 CLEO DUQUE APRN 604.90 ORCHITIS AND EPIDIDYMITIS UNSPECIFIED 08/28/2014 BRYCE HOOVER DO K 604.90 ORCHITIS AND EPIDIDYMITIS UNSPECIFIED 08/28/2014 CLEO DUQUE APRN 604.90 ORCHITIS AND EPIDIDYMITIS UNSPECIFIED 08/28/2014 CLEO DUQUE APRN 604.90 ORCHITIS AND EPIDIDYMITIS UNSPECIFIED 09/10/2014 BRYCE HOOVER DO K 455.3 EXTERNAL HEMORRHOIDS WITHOUT COMPLICATION 09/10/2014 CLEO DUQUE APRN 455.3 EXTERNAL HEMORRHOIDS WITHOUT COMPLICATION 09/10/2014 CLEO DUQUE APRN 455.3 EXTERNAL HEMORRHOIDS WITHOUT COMPLICATION 10/09/2014 CLEO DUQUE APRN V74.5 STD SCREEN 10/31/2014 CLEO DUQUEP Ot 601.9 10/31/2014 CLEO DUQUE 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 Ot 604.90 12/19/2014 CLEO DUQUE 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 Ot 601.9 12/19/2014 CLEO DUQUE 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 Ot 604.90 03/28/2018 CLEO DUQUE 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 Ot 601.9 PROSTATITIS NOS 03/28/2018 CLEO DUQUE 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 Ot 604.90 ORCHITIS/EPIDIDYMIT NOS 03/28/2018 Ot 601.9 PROSTATITIS NOS 06/01/2018 CLEO DUQUE Ot N41.1 CHRONIC PROSTATITIS 06/01/2018 CLEO DUQUEP Ot 601.9 PROSTATITIS NOS 06/01/2018 CLEO DUQUE 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 Ot 604.90 ORCHITIS/EPIDIDYMIT NOS 06/01/2018 Ot 601.9 PROSTATITIS NOS 06/01/2018 CLEO DUQUE Ot N41.1 CHRONIC PROSTATITIS 06/01/2018 JAVIER TRACE BRIONESA K Ot R91.8 OTHER NONSPECIFIC ABNORMAL FINDING OF BENJI 06/01/2018 KLEVER HERRERA DO Ot S09.90XA UNSPECIFIED INJURY OF HEAD, INITIAL ENCO 06/01/2018 JAVIER , KLEVER K Ot S72.92XB UNSP FRACTURE OF LEFT FEMUR, INIT FOR OP 06/01/2018 JAVIER DOTRACEA K Ot V48.5XXA DIGITAL SOL[facility]2018 JAVIER KLEVER K Ot Z23 ENCOUNTER FOR IMMUNIZATION 06/01/2018 JAVIER KLEVER K Ot Z88.0 ALLERGY STATUS TO PENICILLIN 06/01/2018 CLEO DUQUEP Ot 601.9 PROSTATITIS NOS 06/01/2018 CLEO DUQUEP Ot 604.90 ORCHITIS/EPIDIDYMIT NOS 06/01/2018 Ot 601.9 PROSTATITIS NOS 06/01/2018 CLEO DUQUEP Ot N41.1 CHRONIC PROSTATITIS 06/05/2018 JAVIER , KLEVER K Ot R91.8 OTHER NONSPECIFIC ABNORMAL FINDING OF BENJI 06/05/2018 TRACE HERRERA DOA K Ot S09.90XA UNSPECIFIED INJURY OF HEAD, INITIAL ENCO 06/05/2018 JAVIER TRACE BRIONESA K Ot S72.92XB UNSP FRACTURE OF LEFT FEMUR, INIT FOR OP 06/05/2018 JAVIER TRACE BRIONESA K Ot V48.5XXA DIGITAL SOLUTION ARCHITECT INJURED IN [facility] ACCI 06/05/2018 JAVIER KLEVER K Ot Z23 ENCOUNTER FOR IMMUNIZATION 06/05/2018 JAVIER , KLEVER K Ot Z88.0 ALLERGY STATUS TO PENICILLIN 07/20/2018 CLEO DUQUE 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 Ot 601.9 PROSTATITIS NOS 07/20/2018 CLEO DUQUE 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 Ot 604.90 ORCHITIS/EPIDIDYMIT NOS 07/20/2018 Ot 601.9 PROSTATITIS NOS 07/20/2018 CLEO DUQUEP Ot N41.1 CHRONIC PROSTATITIS 07/21/2018 HOOVER DOKAITLINA Michelle Ot A41.9 SEPSIS, UNSPECIFIED ORGANISM 07/21/2018 HOOVER DO, BRYCE K Ot F41.9 ANXIETY DISORDER, UNSPECIFIED 07/21/2018 HOOVER DO, BRYCE K Ot G47.9 SLEEP DISORDER, UNSPECIFIED 07/21/2018 HOOVER DO, BRYCE K Ot I10 ESSENTIAL (PRIMARY) HYPERTENSION 07/21/2018 HOOVER DO, BRYCE K Ot J18.1 LOBAR PNEUMONIA, UNSPECIFIED ORGANISM 07/21/2018 HOOVER DO, BRYCE K Ot M19.91 PRIMARY OSTEOARTHRITIS, UNSPECIFIED SITE 07/21/2018 HOOVER DO, BRYCE K Ot M70.32 OTHER BURSITIS OF ELBOW, LEFT ELBOW 07/21/2018 HOOVER DO, BRYCE K Ot N20.0 CALCULUS OF KIDNEY 07/21/2018 HOOVER DO, BRYCE K Ot N40.0 BENIGN PROSTATIC HYPERPLASIA WITHOUT LOW 07/21/2018 HOOVER DO, BRYCE K Ot Z87.891 PERSONAL HISTORY OF NICOTINE DEPENDENCE 07/21/2018 HOOVER DO, BRYCE K Ot A41.9 SEPSIS, UNSPECIFIED ORGANISM 07/21/2018 HOOVER DO, BRYCE K Ot F41.9 ANXIETY DISORDER, UNSPECIFIED 07/21/2018 HOOVER DO, BRYCE K Ot G47.9 SLEEP DISORDER, UNSPECIFIED 07/21/2018 HOOVER DO, BRYCE K Ot I10 ESSENTIAL (PRIMARY) HYPERTENSION 07/21/2018 HOOVER DO, BRYCE K Ot J18.1 LOBAR PNEUMONIA, UNSPECIFIED ORGANISM 07/21/2018 HOOVER DO, BRYCE K Ot M19.91 PRIMARY OSTEOARTHRITIS, UNSPECIFIED SITE 07/21/2018 HOOVER DO, BRYCE K Ot M70.32 OTHER BURSITIS OF ELBOW, LEFT ELBOW 07/21/2018 HOOVER DO, BRYCE K Ot N20.0 CALCULUS OF KIDNEY 07/21/2018 HOOVER DO, BRYCE K Ot N40.0 BENIGN PROSTATIC HYPERPLASIA WITHOUT LOW 07/21/2018 HOOVER DO, BRYCE K Ot Z87.891 PERSONAL HISTORY OF NICOTINE DEPENDENCE 07/21/2018 CLEO DUQUE 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 Ot 601.9 PROSTATITIS NOS 07/21/2018 CLEO DUQUE 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 Ot 604.90 ORCHITIS/EPIDIDYMIT NOS 07/21/2018 Ot 601.9 PROSTATITIS NOS 07/21/2018 CLEO DUQUE 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 Ot N41.1 CHRONIC PROSTATITIS 07/21/2018 HOOVER DO, BRYCE K Ot A41.9 SEPSIS, UNSPECIFIED ORGANISM 07/21/2018 HOOVER DO, BRYCE K Ot F41.9 ANXIETY DISORDER, UNSPECIFIED 07/21/2018 HOOVER DO, BRYCE K Ot G47.9 SLEEP DISORDER, UNSPECIFIED 07/21/2018 HOOVER DO, BRYCE K Ot I10 ESSENTIAL (PRIMARY) HYPERTENSION 07/21/2018 HOOVER DO, BRYCE K Ot J18.1 LOBAR PNEUMONIA, UNSPECIFIED ORGANISM 07/21/2018 HOOVER DO, BRYCE K Ot M19.91 PRIMARY OSTEOARTHRITIS, UNSPECIFIED SITE 07/21/2018 HOOVER DO, BRYCE K Ot M70.32 OTHER BURSITIS OF ELBOW, LEFT ELBOW 07/21/2018 HOOVER DO, BRYCE K Ot N20.0 CALCULUS OF KIDNEY 07/21/2018 HOOVER DO, BRYCE K Ot N40.0 BENIGN PROSTATIC HYPERPLASIA WITHOUT LOW 07/21/2018 HOOVER DO, BRYCE K Ot Z87.891 PERSONAL HISTORY OF NICOTINE DEPENDENCE 07/21/2018 CLEO DUQUE Ot N41.1 CHRONIC PROSTATITIS 07/21/2018 HOOVER DO, BRYCE K Ot A41.9 SEPSIS, UNSPECIFIED ORGANISM 07/21/2018 HOOVER DO, BRYCE K Ot F41.9 ANXIETY DISORDER, UNSPECIFIED 07/21/2018 HOOVER DO, BRYCE K Ot G47.9 SLEEP DISORDER, UNSPECIFIED 07/21/2018 HOOVER DO, BRYCE K Ot I10 ESSENTIAL (PRIMARY) HYPERTENSION 07/21/2018 HOOVER DO, BRYCE K Ot J18.1 LOBAR PNEUMONIA, UNSPECIFIED ORGANISM 07/21/2018 HOOVER DO, BRYCE K Ot M19.91 PRIMARY OSTEOARTHRITIS, UNSPECIFIED SITE 07/21/2018 HOOVER DO, BRYCE K Ot M70.32 OTHER BURSITIS OF ELBOW, LEFT ELBOW 07/21/2018 HOOVER DO, BRYCE K Ot N20.0 CALCULUS OF KIDNEY 07/21/2018 HOOVER DO, BRYCE K Ot N40.0 BENIGN PROSTATIC HYPERPLASIA WITHOUT LOW 07/21/2018 HOOVER DO BRYCE K Ot Z87.891 PERSONAL HISTORY OF NICOTINE DEPENDENCE 07/22/2018 KLEVER HERRERA DO Ot R91.8 OTHER NONSPECIFIC ABNORMAL FINDING OF BENJI 07/22/2018 KLEVER HERRERA DO Ot S09.90XA UNSPECIFIED INJURY OF HEAD, INITIAL ENCO 07/22/2018 KLEVER HERRERA DO Ot S72.92XB UNSP FRACTURE OF LEFT FEMUR, INIT FOR OP 07/22/2018 JAVIERGabriele BRIONES KLEVER K Ot V48.5XXA DIGITAL SOLUTION ARCHITECT INJURED IN [facility] ACCI 07/22/2018 KLEVER HERRERA DO Ot Z23 ENCOUNTER FOR IMMUNIZATION 07/22/2018 JAVIER BRIONES KLEVER Michelle Ot Z88.0 ALLERGY STATUS TO PENICILLIN 07/22/2018 HOOVER DOKAITLINA K Ot A41.9 SEPSIS, UNSPECIFIED ORGANISM 07/22/2018 HOOVER DO BRYCE K Ot F41.9 ANXIETY DISORDER, UNSPECIFIED 07/22/2018 HOOVER DO BRYCE K Ot G47.9 SLEEP DISORDER, UNSPECIFIED 07/22/2018 HOOVER DO, BRYCE K Ot I10 ESSENTIAL (PRIMARY) HYPERTENSION 07/22/2018 HOOVER DO BRYCE K Ot J18.1 LOBAR PNEUMONIA, UNSPECIFIED ORGANISM 07/22/2018 HOOVER DO, BRYCE K Ot M19.91 PRIMARY OSTEOARTHRITIS, UNSPECIFIED SITE 07/22/2018 HOOVER DO, BRYCE K Ot M70.32 OTHER BURSITIS OF ELBOW, LEFT ELBOW 07/22/2018 HOOVER DO, BRYCE K Ot N20.0 CALCULUS OF KIDNEY 07/22/2018 HOOVER DO, BRYCE K Ot N40.0 BENIGN PROSTATIC HYPERPLASIA WITHOUT LOW 07/22/2018 HOOVER DO, BRYCE K Ot Z87.891 PERSONAL HISTORY OF NICOTINE DEPENDENCE 07/23/2018 HOOVER DO BRYCE K Ot A41.9 SEPSIS, UNSPECIFIED ORGANISM 07/23/2018 HOOVER DO BRYCE K Ot F41.9 ANXIETY DISORDER, UNSPECIFIED 07/23/2018 HOOVER DO BRYCE K Ot G47.9 SLEEP DISORDER, UNSPECIFIED 07/23/2018 HOOVER DO BRYCE K Ot I10 ESSENTIAL (PRIMARY) HYPERTENSION 07/23/2018 HOOVER DO, BRYCE K Ot J18.1 LOBAR PNEUMONIA, UNSPECIFIED ORGANISM 07/23/2018 HOOVER DO, BRYCE K Ot K81.0 ACUTE CHOLECYSTITIS 07/23/2018 HOOVER DO, BRYCE K Ot M19.91 PRIMARY OSTEOARTHRITIS, UNSPECIFIED SITE 07/23/2018 HOOVER DO, BRYCE K Ot M70.32 OTHER BURSITIS OF ELBOW, LEFT ELBOW 07/23/2018 HOOVER DO, BRYCE K Ot N20.0 CALCULUS OF KIDNEY 07/23/2018 HOOVER DO, BRYCE K Ot N40.0 BENIGN PROSTATIC HYPERPLASIA WITHOUT LOW 07/23/2018 BRYCE HOOVER DO Ot S72.92XE UNSP FX LEFT FEMUR, SUBS FOR OPN FX TYPE 07/23/2018 BRYCE HOOVER DO Ot Z87.891 PERSONAL HISTORY OF NICOTINE DEPENDENCE 07/28/2018 CLEO DUQUE 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 Ot N41.1 CHRONIC PROSTATITIS 07/28/2018 CLEO DUQUEP Ot 601.9 PROSTATITIS NOS 07/28/2018 CLEO DUQUE 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 Ot 604.90 ORCHITIS/EPIDIDYMIT NOS 07/28/2018 Ot 601.9 PROSTATITIS NOS 07/28/2018 CLEO DUQUE 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 Ot N41.1 CHRONIC PROSTATITIS 07/29/2018 CLEO DUQUE 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 Ot N41.1 CHRONIC PROSTATITIS 08/01/2018 CLEO DUQUE 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 Ot 601.9 PROSTATITIS NOS 08/01/2018 CLEO DUQUE 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 Ot 604.90 ORCHITIS/EPIDIDYMIT NOS 08/01/2018 Ot 601.9 PROSTATITIS NOS 08/01/2018 CLEO DUQUEP Ot N41.1 CHRONIC PROSTATITIS 08/01/2018 CLEO DUQUE 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 Ot R60.0 LOCALIZED EDEMA 08/02/2018 CLEO DUQUE 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 Ot R60.0 LOCALIZED EDEMA Procedures Code Description [place] [address] ROUTINE VENIPUNCTURE 04/02/2014 85698 CBC 04/02/2014 03017 CMP 04/02/2014 8497192 GFR CALC (RESULT ONLY) 04/02/2014 02461 PSA TOTAL 04/02/2014 43582 TSH 04/02/2014 84423 HEPATITIS PROFILE 04/02/2014 39767 XRAY SHOULDER RIGHT COMP 2 VIEWS 04/03/2014 10872 US SACRAL ULTRASOUND 08/28/2014 30740 US SCROTUM ULTRASOUND 08/28/2014 28295 ROUTINE VENIPUNCTURE 10/09/2014 04882 SYPHILLIS-STATE LAB 10/09/2014 95132 GC/CHLAM URINE (STATE) 10/09/2014 30988 UA LONG DIP 10/09/2014 91829 CBC 10/09/2014 [id number] RESECTION OF GALLBLADDER, PERCUTANEOUS E 07/21/2018 [id number] ROBOTIC ASSISTED PROCEDURE OF TRUNK, PER 07/21/2018 Results Test Result Range CBC With Differential/Platelet [...] 7-25 CREATININE 1.16 mg/dL 0.70-1.25 eGFR NON-AFR. HUNGARIAN 65 mL/min/1.73m2 > OR=60 eGFR 76 mL/min/1.73m2 [...] 16 U/L 10-35 ALT 15 U/L 9-46 Capillary blood glucose measurement by glucometer (mass/volume) - 06/01/18 00: 49 Capillary blood glucose measurement by glucometer (mass/volume) 116 mg/dL 70-110 Capillary blood glucose measurement by glucometer (mass/volume) - 06/01/18 01: 23 Capillary blood glucose measurement by glucometer (mass/volume) 74 mg/dL 70-110 Complete blood count (CBC) with automated white blood cell (WBC) differential - 07/20/18 13:29 Blood leukocytes automated count (number/volume) 9.2 10*3/uL 4.3-11.0 Blood erythrocytes automated count (number/volume) 4.18 10*6/uL 4.35-5.85 Venous blood hemoglobin measurement (mass/volume) 13.5 g/dL 13.3-17.7 Blood hematocrit (volume fraction) 41 % 40-54 Automated erythrocyte mean corpuscular volume 98 [foz_us] 80-99 Automated erythrocyte mean corpuscular hemoglobin (mass per erythrocyte) 32 pg 25-34 Automated erythrocyte mean corpuscular hemoglobin concentration measurement ( mass/volume) 33 g/dL 32-36 Automated erythrocyte distribution width ratio 14.7 % 10.0-14.5 Automated blood platelet count (count/volume) 210 10*3/uL 130-400 Automated blood platelet mean volume measurement 8.6 [foz_us] 7.4-10.4 Automated blood neutrophils/100 leukocytes 87 % 42-75 Automated blood lymphocytes/100 leukocytes 8 % 12-44 Blood monocytes/100 leukocytes 4 % 0-12 Automated blood eosinophils/100 leukocytes 0 % 0-10 Automated blood basophils/100 leukocytes 0 % 0-10 Blood neutrophils automated count (number/volume) 8.0 10*3 1.8-7.8 Blood lymphocytes automated count (number/volume) 0.8 10*3 1.0-4.0 Blood monocytes automated count (number/volume) 0.4 10*3 0.0-1.0 Automated eosinophil count 0.0 10*3/uL 0.0-0.3 Automated blood basophil count (count/volume) 0.0 10*3/uL 0.0-0.1 Blood lactic acid measurement (moles/volume) - 07/20/18 13:29 Blood lactic acid measurement (moles/volume) 1.14 mmol/L 0.50-2.00 PT panel in platelet poor plasma by coagulation assay - 07/20/18 13:29 Prothrombin time (PT) in platelet poor plasma by coagulation assay 13.6 s 12.2-14.7 INR in platelet poor plasma or blood by coagulation assay 1.0 0.8-1.4 Activated partial thromboplastin time (aPTT) in platelet poor plasma bycoagulation assay - 07/20/18 13:29 Activated partial thromboplastin time (aPTT) in platelet poor plasma bycoagulation assay 28 s 24-35 Comprehensive metabolic panel - 07/20/18 13:29 Serum or plasma sodium measurement (moles/volume) 134 mmol/L 135-145 Serum or plasma potassium measurement (moles/volume) 4.0 mmol/L 3.6-5.0 Serum or plasma chloride measurement (moles/volume) 104 mmol/L 98-107 Carbon dioxide 22 mmol/L 21-32 Serum or plasma anion gap determination (moles/volume) 8 mmol/L 5-14 Serum or plasma urea nitrogen measurement (mass/volume) 10 mg/dL 7-18 Serum or plasma creatinine measurement (mass/volume) 0.82 mg/dL 0.60-1.30 Serum or plasma urea nitrogen/creatinine mass ratio 12 NRG Serum or plasma creatinine measurement with calculation of estimated glomerular filtration rate > NRG Serum or plasma glucose measurement (mass/volume) 105 mg/dL 70-105 Serum or plasma calcium measurement (mass/volume) 8.7 mg/dL 8.5-10.1 Serum or plasma total bilirubin measurement (mass/volume) 0.5 mg/dL 0.1-1.0 Serum or plasma alkaline phosphatase measurement (enzymatic activity/volume) 84 U/L 40-136 Serum or plasma aspartate aminotransferase measurement (enzymatic activity/ volume) 11 U/L 5-34 Serum or plasma alanine aminotransferase measurement (enzymatic activity/volume ) 14 U/L 0-55 Serum or plasma protein measurement (mass/volume) 5.7 g/dL 6.4-8.2 Serum or plasma albumin measurement (mass/volume) 3.2 g/dL 3.2-4.5 CALCIUM CORRECTED 9.3 mg/dL 8.5-10.1 Blood manual differential performed detection - 07/20/18 13:29 Blood monocytes/100 leukocytes 1 % NR Manual blood segmented neutrophils/100 leukocytes 83 % NRG Blood band neutrophils/100 leukocytes 6 % NRG Manual blood lymphocytes/100 leukocytes 10 % NRG Manual eosinophils/100 leukocytes in nose 0 % NR Manual blood basophils/100 leukocytes 0 % NR Blood erythrocyte morphology finding identification NORMAL NR Influenza virus A and B antigen detection - 07/20/18 13:29 FLU RESULT NEGATIVE FOR INFLUENZA A AND B ANTIGENS BY IA NR Bacterial blood culture - 07/20/18 13:29 Bacterial blood culture NG [facility] Complete urinalysis with reflex to culture - 07/20/18 14:11 Urine color determination YELLOW NRG Urine clarity determination SLIGHTLY CLOUDY NRG Urine pH measurement by test strip 7 5-9 Specific gravity of urine by test strip 1.010 1.016- 1.022 Urine protein assay by test strip, semi-quantitative NEGATIVE NEGATIVE Urine glucose detection by automated test strip NEGATIVE NEGATIVE Erythrocytes detection in urine sediment by light microscopy NEGATIVE NEGATIVE Urine ketones detection by automated test strip NEGATIVE NEGATIVE Urine nitrite detection by test strip NEGATIVE NEGATIVE Urine total bilirubin detection by test strip NEGATIVE NEGATIVE Urine urobilinogen measurement by automated test strip (mass/volume) NORMAL NORMAL Urine leukocyte esterase detection by dipstick NEGATIVE NEGATIVE Automated urine sediment erythrocyte count by microscopy (number/high power field) NONE NRG Automated urine sediment leukocyte count by microscopy (number/high power field ) RARE NRG Bacteria detection in urine sediment by light microscopy NEGATIVE NRG Squamous epithelial cells detection in urine sediment by light microscopy RARE NRG Crystals detection in urine sediment by light microscopy PRESENT NRG Casts detection in urine sediment by light microscopy NONE NRG Mucus detection in urine sediment by light microscopy SMALL NRG Complete urinalysis with reflex to culture NO NRG Amorphous sediment detection in urine sediment by light microscopy FEW FRANCIA PHOSPHATE NRG Bacterial urine culture - 07/20/18 14:11 Bacterial urine culture NG NRG Bacterial blood culture - 07/20/18 14:33 Bacterial blood culture NG NRG Complete blood count (CBC) with automated white blood cell (WBC) differential - 07/21/18 05:49 Blood leukocytes automated count (number/volume) 8.3 10*3/uL 4.3-11.0 Blood erythrocytes automated count (number/volume) 3.82 10*6/uL 4.35-5.85 Venous blood hemoglobin measurement (mass/volume) 12.4 g/dL 13.3-17.7 Blood hematocrit (volume fraction) 38 % 40-54 Automated erythrocyte mean corpuscular volume 100 [foz_us] 80-99 Automated erythrocyte mean corpuscular hemoglobin (mass per erythrocyte) 33 pg 25-34 Automated erythrocyte mean corpuscular hemoglobin concentration measurement ( mass/volume) 33 g/dL 32-36 Automated erythrocyte distribution width ratio 14.5 % 10.0-14.5 Automated blood platelet count (count/volume) 210 10*3/uL 130-400 Automated blood platelet mean volume measurement 9.1 [foz_us] 7.4-10.4 Automated blood neutrophils/100 leukocytes 89 % 42-75 Automated blood lymphocytes/100 leukocytes 7 % 12-44 Blood monocytes/100 leukocytes 3 % 0-12 Automated blood eosinophils/100 leukocytes 0 % 0-10 Automated blood basophils/100 leukocytes 0 % 0-10 Blood neutrophils automated count (number/volume) 7.4 10*3 1.8-7.8 Blood lymphocytes automated count (number/volume) 0.6 10*3 1.0-4.0 Blood monocytes automated count (number/volume) 0.3 10*3 0.0-1.0 Automated eosinophil count 0.0 10*3/uL 0.0-0.3 Automated blood basophil count (count/volume) 0.0 10*3/uL 0.0-0.1 Comprehensive metabolic panel - 07/21/18 05:49 Serum or plasma sodium measurement (moles/volume) 136 mmol/L 135-145 Serum or plasma potassium measurement (moles/volume) 4.0 mmol/L 3.6-5.0 Serum or plasma chloride measurement (moles/volume) 104 mmol/L 98-107 Carbon dioxide 20 mmol/L 21-32 Serum or plasma anion gap determination (moles/volume) 12 mmol/L 5-14 Serum or plasma urea nitrogen measurement (mass/volume) 11 mg/dL 7-18 Serum or plasma creatinine measurement (mass/volume) 0.80 mg/dL 0.60-1.30 Serum or plasma urea nitrogen/creatinine mass ratio 14 NRG Serum or plasma creatinine measurement with calculation of estimated glomerular filtration rate > NRG Serum or plasma glucose measurement (mass/volume) 107 mg/dL 70-105 Serum or plasma calcium measurement (mass/volume) 9.0 mg/dL 8.5-10.1 Serum or plasma total bilirubin measurement (mass/volume) 0.5 mg/dL 0.1-1.0 Serum or plasma alkaline phosphatase measurement (enzymatic activity/volume) 81 U/L 40-136 Serum or plasma aspartate aminotransferase measurement (enzymatic activity/ volume) 14 U/L 5-34 Serum or plasma alanine aminotransferase measurement (enzymatic activity/volume ) 15 U/L 0-55 Serum or plasma protein measurement (mass/volume) 5.6 g/dL 6.4-8.2 Serum or plasma albumin measurement (mass/volume) 3.2 g/dL 3.2-4.5 CALCIUM CORRECTED 9.6 mg/dL 8.5-10.1 Methicillin resistant Staphylococcus aureus (MRSA) screening culture - 12:30 Methicillin resistant Staphylococcus aureus (MRSA) screening culture NG NRG Complete blood count (CBC) with automated white blood cell (WBC) differential - 07/22/18 03:53 Blood leukocytes automated count (number/volume) 9.2 10*3/uL 4.3-11.0 Blood erythrocytes automated count (number/volume) 3.63 10*6/uL 4.35-5.85 Venous blood hemoglobin measurement (mass/volume) 11.6 g/dL 13.3-17.7 Blood hematocrit (volume fraction) 36 % 40-54 Automated erythrocyte mean corpuscular volume 99 [foz_us] 80-99 Automated erythrocyte mean corpuscular hemoglobin (mass per erythrocyte) 32 pg 25-34 Automated erythrocyte mean corpuscular hemoglobin concentration measurement ( mass/volume) 32 g/dL 32-36 Automated erythrocyte distribution width ratio 14.6 % 10.0-14.5 Automated blood platelet count (count/volume) 176 10*3/uL 130-400 Automated blood platelet mean volume measurement 9.2 [foz_us] 7.4-10.4 Automated blood neutrophils/100 leukocytes 94 % 42-75 Automated blood lymphocytes/100 leukocytes 4 % 12-44 Blood monocytes/100 leukocytes 3 % 0-12 Automated blood eosinophils/100 leukocytes 0 % 0-10 Automated blood basophils/100 leukocytes 0 % 0-10 Blood neutrophils automated count (number/volume) 8.6 10*3 1.8-7.8 Blood lymphocytes automated count (number/volume) 0.4 10*3 1.0-4.0 Blood monocytes automated count (number/volume) 0.2 10*3 0.0-1.0 Automated eosinophil count 0.0 10*3/uL 0.0-0.3 Automated blood basophil count (count/volume) 0.0 10*3/uL 0.0-0.1 Whole blood basic metabolic panel - 07/22/18 03:53 Serum or plasma sodium measurement (moles/volume) 136 mmol/L 135-145 Serum or plasma potassium measurement (moles/volume) 4.0 mmol/L 3.6-5.0 Serum or plasma chloride measurement (moles/volume) 106 mmol/L 98-107 Carbon dioxide 20 mmol/L 21-32 Serum or plasma anion gap determination (moles/volume) 10 mmol/L 5-14 Serum or plasma urea nitrogen measurement (mass/volume) 14 mg/dL 7-18 Serum or plasma creatinine measurement (mass/volume) 0.71 mg/dL 0.60-1.30 Serum or plasma urea nitrogen/creatinine mass ratio 20 NRG Serum or plasma creatinine measurement with calculation of estimated glomerular filtration rate > NRG Serum or plasma glucose measurement (mass/volume) 150 mg/dL 70-105 Serum or plasma calcium measurement (mass/volume) 9.1 mg/dL 8.5-10.1 Serum or plasma phosphate measurement (mass/volume) - 07/22/18 03:53 Serum or plasma phosphate measurement (mass/volume) 2.8 mg/dL 2.3-4.7 Magnesium - 07/22/18 03:53 Magnesium 1.6 mg/dL 1.8-2.4 Automated blood complete blood count (hemogram) panel - 07/23/18 04:40 Blood leukocytes automated count (number/volume) 8.3 10*3/uL 4.3-11.0 Blood erythrocytes automated count (number/volume) 3.29 10*6/uL 4.35-5.85 Venous blood hemoglobin measurement (mass/volume) 10.5 g/dL 13.3-17.7 Blood hematocrit (volume fraction) 33 % 40-54 Automated erythrocyte mean corpuscular volume 100 [foz_us] 80-99 Automated erythrocyte mean corpuscular hemoglobin (mass per erythrocyte) 32 pg 25-34 Automated erythrocyte mean corpuscular hemoglobin concentration measurement ( mass/volume) 32 g/dL 32-36 Automated erythrocyte distribution width ratio 14.7 % 10.0-14.5 Automated blood platelet count (count/volume) 139 10*3/uL 130-400 Automated blood platelet mean volume measurement 9.8 [foz_us] 7.4-10.4 Whole blood basic metabolic panel - 07/23/18 04:40 Serum or plasma sodium measurement (moles/volume) 137 mmol/L 135-145 Serum or plasma potassium measurement (moles/volume) 3.5 mmol/L 3.6-5.0 Serum or plasma chloride measurement (moles/volume) 108 mmol/L 98-107 Carbon dioxide 19 mmol/L 21-32 Serum or plasma anion gap determination (moles/volume) 10 mmol/L 5-14 Serum or plasma urea nitrogen measurement (mass/volume) 22 mg/dL 7-18 Serum or plasma creatinine measurement (mass/volume) 0.64 mg/dL 0.60-1.30 Serum or plasma urea nitrogen/creatinine mass ratio 34 NRG Serum or plasma creatinine measurement with calculation of estimated glomerular filtration rate > NRG Serum or plasma glucose measurement (mass/volume) 106 mg/dL 70-105 Serum or plasma calcium measurement (mass/volume) 8.5 mg/dL 8.5-10.1 Fibrin D-dimer FEU measurement in platelet poor plasma (mass/volume) - 10:03 Fibrin D-dimer FEU measurement in platelet poor plasma (mass/volume) 3.24 ug/mL 0.00-0.49 Encounters ACCT No. Visit Date/Time Discharge Status Pt. Type Provider Facility Loc./Unit Complaint [id number] 10/09/2014 14:27:00 10/09/2014 23:59:59 CLS Outpatient CLEO DUQUE APRN [id number] 09/24/2014 14:24:00 09/24/2014 23:59:59 CLS Outpatient CLEO DUQUE APRN [id number] 09/10/2014 16:53:00 09/10/2014 23:59:59 CLS Outpatient BRYCE HOOVER DO [id number] 08/28/2014 16:02:00 08/28/2014 23:59:59 CLS Outpatient CLEO DUQUE APRN [id number] 08/02/2014 12:43:00 08/02/2014 23:59:59 CLS Outpatient CLEO DUQUE APRN [id number] 04/26/2014 09:23:00 04/26/2014 23:59:59 CLS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
== END 2018-08-17 18:00 | disposition home or self-care (01) ==
LOC: EDUNIT# 13:03 → ER 13:04
DX: M97.02XA Periprosthetic fracture around internal prosthetic left hip joint, initial encounter (principal); M25.462 Effusion, left knee; M25.552 Pain in left hip; M79.605 Pain in left leg; I10 Essential (primary) hypertension; F41.9 Anxiety disorder, unspecified; Z87.448 Personal history of other diseases of urinary system; Z88.0 Allergy status to penicillin; Z96.642 Presence of left artificial hip joint; Z87.891 Personal history of nicotine dependence; X58.XXXA Exposure to other specified factors, initial encounter
CPT/HCPCS: 36415; 73502; 73562; 80053; 85025; 87070; 87205; 89051; 89060

== ENCOUNTER 2018-09-24 19:24 | Emergency (ER) | payer MEDICARE, OTHER ==
[~2018-09-24] VITALS: Ht 185.4 cm; Wt 64.4 kg
[~2018-09-24 19:24] MED LIST changes: +HYDR-4196 PO
[2018-09-24] MEDS ORDERED: fentaNYL INJECTION 100 MCG/2 ML AMP IVP ONE (19:45)
[2018-09-24 19:53] LABS: BASOPHILS % (AUTO) 0 % (0-10); EOSINOPHILS # (AUTO) 0.1 10^3/uL (0.0-0.3); EOSINOPHILS % (AUTO) 2 % (0-10); HEMATOCRIT 41 % (40-54); HEMOGLOBIN 13.9 G/DL (13.3-17.7); LYMPHOCYTES # (AUTO) 1.3 X 10^3 (1.0-4.0); LYMPHOCYTES % (AUTO) 24 % (12-44); MEAN CORPUSCULAR HEMOGLOBIN 31 PG (25-34); MEAN CORPUSCULAR HGB CONC 34 G/DL (32-36); MEAN CORPUSCULAR VOLUME 93 FL (80-99); MEAN PLATELET VOLUME 8.8 FL (7.4-10.4); MONOCYTES # (AUTO) 0.4 X 10^3 (0.0-1.0); MONOCYTES % (AUTO) 8 % (0-12); NEUTROPHILS # (AUTO) 3.7 X 10^3 (1.8-7.8); NEUTROPHILS % (AUTO) 67 % (42-75); PLATELET COUNT 243 10^3/uL (130-400); RED BLOOD COUNT 4.45 10^6/uL (4.35-5.85); RED CELL DISTRIBUTION WIDTH 13.9 % (10.0-14.5); WHITE BLOOD COUNT 5.6 10^3/uL (4.3-11.0)
[2018-09-24 20:02] LABS: BILIRUBIN,URINE NEGATIVE (NEGATIVE); CLARITY,URINE CLEAR; COLOR,URINE YELLOW; GLUCOSE, URINE (UA) NEGATIVE (NEGATIVE); KETONES,URINE NEGATIVE (NEGATIVE); LEUKOCYTE ESTERASE ,URINE 1+ (NEGATIVE); NITRITE,URINE NEGATIVE (NEGATIVE); PH,URINE 8 (5-9); PROTEIN,URINE NEGATIVE (NEGATIVE); UROBILINOGEN,URINE NORMAL (NORMAL)
[2018-09-24 20:10] LABS: AMORPHOUS SEDIMENT,UR MOD AMOR PHOSPHATE /LPF; BACTERIA,URINE FEW /HPF
--- OUTSIDE RECORDS SUMMARY | 2018-09-24 20:12 | XMS REPORT | Encounter Summary ---
Author Author [facility] Organization [facility] Address Unknown Phone Unavailable Care Team Providers Care Beauty Therapist Name Role Phone Rudolph Bragg DO Unavailable Yari Antonio MA Unavailable Unavailable Melissa Taylor APRN Unavailable Shun Donohue MD Unavailable Unavailable No Pcp, Na PCP Unavailable Encounter Details Care Team Description Date Type Department Ted Pérez MD [address] [facility] [address] [place], [place] [id number] 07/27/2018 Hospital [facility] Radiology [address] [facility] MED OFFICE [address]LO[address] [place], [place] [id number] Social History Date Tobacco Use Types Packs/Day Years Used Current Every Day Smoker Cigarettes 1 Smokeless Tobacco: Never Used Alcohol Use Drinks/Week oz/Week Comments Yes 1-2 Standard 0.5 - 1.0 occ drinks or equivalent Sex Assigned at Date Recorded Not on file Industry Job Start Date Occupation Not on file Not on file Not on file Travel End Travel History Travel Start No recent travel history available. as of this encounter Medications at Time of Discharge Start Date End Date Medication Sig Dispensed Refills acetaminophen (TYLENOL) Take 500 mg 0 500 mg tablet by mouth every 6 hours as needed for Pain. Max of 4,000 mg of acetaminophen in 24 hours. albuterol 0.5% Inhale 2.5 mg 0 (PROVENTIL; VENTOLIN) 2.5 solution by mg/0.5 mL nebulizer nebulizer as solution directed every 6 hours as needed for Shortness of Breath or Wheezing. ALPRAZolam (XANAX) 0.25 Take 0.25 mg 0 mg tablet by mouth at bedtime as needed for Anxiety. bacitracin 500 unit/gram Apply 0.5 0 ophthalmic ointment inches topically to affected area every 4 hours. bisacodyl (DULCOLAX) 10 Insert or 0 mg rectal suppository Apply 10 mg to rectal area as directed daily. calcium carbonate Take by 0 (CALCIUM 500 PO) mouth. cefdinir (OMNICEF) 300 mg Take 300 mg 0 capsule by mouth every 12 hours. dexamethasone (DECADRON) Take 4 mg by 0 4 mg tablet mouth every 6 hours. Take with food. docusate (COLACE) 100 mg Take 100 mg 0 capsule by mouth twice daily. HYDROcodone/acetaminophen Take 1 tablet 0 (+) (NORCO) 10/325 mg by mouth tablet every 6 hours as needed for Pain oxyCODONE SR (OXYCONTIN) Take 20 mg by 0 20 mg tablet mouth every 12 hours senna/docusate Take 1 tablet 0 (SENOKOT-S) 8.6/50 mg by mouth tablet daily. traZODone (DESYREL) 50 mg Take 50 mg by 0 tablet mouth at bedtime as needed for Sleep. 09/07/2018 tamsulosin (FLOMAX) 0.4 Take 0.4 mg 0 mg capsule by mouth daily. Do not crush, chew or open capsules. Take 30 minutes following the same meal each day. as of this encounter Plan of Treatment Not on fileas of this encounter Procedures Comments Procedure Name Priority Date/Time Associated Diagnosis FEMUR 2 VIEWS LEFT Routine 07/27/2018 Closed displaced 1:25 PM OPERATIONS GENERAL AGENT segmental fracture of shaft of left femur with routine healing, subsequent encounter in this encounter Results * FEMUR 2 VIEWS LEFT (07/27/2018 1:25 PM OPERATIONS GENERAL AGENT) Impressions Performed At FINDINGS/IMPRESSION: [facility] RES[facility] [...] Interface, Radiant Results - 07/27/2018 5:19 PM OPERATIONS GENERAL AGENT FEMUR 2 VIEWS LEFT CLINICAL HISTORY: Male, [...] left femur with routine healing, subsequent encounter in this encounter
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
--- OUTSIDE RECORDS SUMMARY | 2018-09-24 20:12 | XMS REPORT | Encounter Summary ---
Author Author [facility] Organization [facility] Address Unknown Phone Unavailable Care Team Providers Care Employment Consultant Name Role Phone Rudolph Bragg DO Unavailable Yari Antonio MA Unavailable Unavailable Melissa Taylor APRN Unavailable Shun Donohue MD Unavailable Unavailable No Pcp, Na PCP Unavailable Encounter Details Care Team Description Date Type Department Rosalino Deras MD [address] [place] [address] 09/07/2018 Hospital Clin[facility] Encounter [facility] [address]st fl [address] [place] [address] Social History Date Tobacco Use Types Packs/Day [...] (SENOKOT-S) 8.6/50 mg by mouth tablet daily. 09/07/2018 tamsulosin (FLOMAX) 0.4 Take one 180 capsule 3 mg capsule capsule by mouth twice daily. Do not crush, chew or open capsules. Take 30 minutes following the same meal each day. traZODone (DESYREL) 50 mg Take 50 mg by 0 tablet mouth at bedtime as needed for Sleep. as of this encounter Plan of Treatment Not on fileas of this encounter Procedures Comments Procedure Name Priority Date/Time Associated Diagnosis PROSTATIC SPECIFIC Routine 09/07/2018 Benign prostatic ANTIGEN-PSA 11:40 AM SOURCING MANAGER hyperplasia (BPH) with straining on urination in this encounter Results * PROSTATIC SPECIFIC ANTIGEN-PSA (09/07/2018 11:40 AM SOURCING MANAGER) Prostatic Specific 0.20 <4.01 NG/ML [facility] Antigen Comment: REFERENCE RANGES AGEPSA VALUE <50<=1.5 50-54 <=2.0 55-59 <=3.0 60-69 <=4.0 70+<=6.0 Specimen Blood Performing Organization Address City/State/Zipcode Phone Number MAIN LAB [address] [place] [address] in this encounter Visit Diagnoses Diagnosis Benign prostatic hyperplasia (BPH) with straining on urination in this encounter
--- OUTSIDE RECORDS SUMMARY | 2018-09-24 20:12 | XMS REPORT | Encounter Summary ---
Author Author [facility] Organization [facility] Address Unknown Phone Unavailable Care Team Providers Care Printed Circuit Boards Router Name Role Phone Rudolph Bragg DO Unavailable Yari Antonio MA Unavailable Unavailable Melissa Taylor APRN Unavailable Shun Donohue MD Unavailable Unavailable No Pcp, Na PCP Unavailable Reason for Referral * Consult, Test & Treat Referred By Contact Referred To Contact Status Reason Specialty Diagnoses / Procedures Ted Pérez MD [id number] [place] [address] Closed Specialty Services Diagnoses Required Closed displaced segmental fracture of shaft of left femur with routine healing, subsequent encounter Reason for Visit * Reason Comments Follow Up left femur Encounter Details Care Team Description Date Type Department Ted Pérez MD [address] [address] Closed displaced segmental fracture of shaft of left femur with routine healing, subsequent encounter (Primary Dx) 07/27/2018 Office Visit [facility] [address] [place] [address] Social History Date Tobacco Use [...] travel history available. as of this encounter Last Filed Vital Signs Time Taken Vital Sign Reading - Blood Pressure - - Pulse - - Temperature - - Respiratory Rate - - Oxygen Saturation - - Inhaled Oxygen - Concentration 07/27/2018 1:14 PM SPRING FITTER HELPER Weight 62.1 kg (137 lb) 07/27/2018 1:14 PM SPRING FITTER HELPER Height 185.4 cm (6' 1") 07/27/2018 1:14 PM SPRING FITTER HELPER Body Mass Index 18.07 in this encounter Progress Notes * Ted Pérez MD - 07/27/2018 1:10 PM SPRING FITTER HELPER Mr. Clinton Saldivar presents today for followup [...] questions prior to his departure from clinic. ([id number]) NG FITTER HELPER in this encounter Plan of Treatment Order Schedule Name Priority Associated Diagnoses Ordered: 07/27/2018 AMB REFERRAL TO PHYSICAL OR OCCUPATIONAL Routine Closed displaced THERAPY segmental fracture of shaft of left femur with routine healing, subsequent encounter as of this encounter Visit Diagnoses Diagnosis Closed displaced segmental fracture of shaft of left femur with routine healing, subsequent encounter - Primary in this encounter
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
--- OUTSIDE RECORDS SUMMARY | 2018-09-24 20:12 | XMS REPORT | Encounter Summary ---
Author Author [facility] Organization [facility] Address Unknown Phone Unavailable Care Team Providers Care Mime Artist Name Role Phone Rudolhp Bragg DO Unavailable Yari Antonio MA Unavailable Unavailable Melissa Taylor APRN Unavailable Shun Donohue MD Unavailable Unavailable No Pcp, Na PCP Unavailable Reason for Referral * Radiology Services (Routine) Referred By Contact Referred To Contact Status Reason Specialty Diagnoses / Procedures Edward Stinson MD [address] [place] [address] Ca2 Mri [address] [facility] [address] No Auth Needed Radiology Diagnoses Benign prostatic hyperplasia, unspecified whether lower urinary tract symptoms present P rocedures CT ABD/PELV W CONTRAST CT ABD/PELV WO/W CONTRAST Reason for Visit * Reason Comments Results Encounter Details Care Team Description Date Type Department Edward Stinson MD [address] [place] [address] Results 06/30/2018 Telephone [facility] Level 2A [address] [place] [address] Social History Date Tobacco Use [...] travel history available. as of this encounter Miscellaneous Notes * [...] study in this encounter Plan of Treatment Not on fileas of this encounter Results * CT ABD/PELV W CONTRAST (09/06/2018 10:09 AM RIG BUILDER HELPER) Impressions Performed At 1. There is a [...] Interface, Radiant Results - 09/06/2018 3:[address] ABDOMEN AND PELVIS Clinical Indication: Male, [...] AM. Performing Organization Address City/State/Zipcode Phone Number [facility] RESULTS in this encounter Visit Diagnoses Diagnosis Benign prostatic hyperplasia, unspecified whether lower urinary tract symptoms present - Primary in this encounter
--- OUTSIDE RECORDS SUMMARY | 2018-09-24 20:12 | XMS REPORT | Encounter Summary ---
Author Author [facility] Organization [facility] Address Unknown Phone Unavailable Care Team Providers Care Housing Quality Standard Inspector Name Role Phone Rudolph Bragg DO Unavailable Yari Antonio MA Unavailable Unavailable Melissa Taylor APRN Unavailable Shun Donohue MD Unavailable Unavailable No Pcp, Na PCP Unavailable Reason for Referral * Radiology Services (Routine) Referred By Contact Referred To Contact Status Reason Specialty Diagnoses / Procedures Edward Stinson MD [address] [place] [address] [address] [place] [address] No Auth Needed Radiology Diagnoses Benign prostatic hyperplasia, unspecified whether lower urinary tract symptoms present P rocedures CT ABD/PELV W CONTRAST CT ABD/PELV WO/W CONTRAST * Radiology Services (Routine) Referred By Contact Referred To Contact Status Reason Specialty Diagnoses / Procedures Edward Stinson MD [address] [place] [address] Ca[address] Mri [address] [place] [address] No Auth Needed Radiology Diagnoses Benign prostatic hyperplasia, unspecified whether lower urinary tract symptoms present P rocedures CT ABD/PELV W CONTRAST CT ABD/PELV WO/W CONTRAST Reason for Visit * Radiology Services (Routine) Referred By Contact Referred To Contact Status Reason Specialty Diagnoses / Procedures Edward Stinson MD [address] [place] [address] Ca2 Mri [address] [place] [address] No Auth Needed Radiology Diagnoses Benign prostatic hyperplasia, unspecified whether lower urinary tract symptoms present P rocedures CT ABD/PELV W CONTRAST CT ABD/PELV WO/W CONTRAST Encounter Details Care Team Description Date Type Department Edward Stinson MD [address] [place] [address] 09/06/2018 Hospital [facility] Radiology [address] [facility] [address] [place] [address] Social History Date Tobacco Use Types Packs/Day [...] Comments Procedure Name Priority Date/Time Associated Diagnosis CT ABD/PELV W CONTRAST Routine 09/06/2018 Benign prostatic 10:09 AM FASHION DIRECTOR hyperplasia, unspecified whether lower urinary tract symptoms present POC CREATININE, RAD 09/06/2018 9:40 AM FASHION DIRECTOR in this encounter Results * CT ABD/PELV W CONTRAST (09/06/2018 10:09 AM FASHION DIRECTOR) Impressions Performed At 1. There is a [...] opinions expressed in this report Finalized by Bogadn Kebede M.D. on 09/06/2018 2:57 PM. Dictated [...] Interface, Radiant Results - 09/06/2018 3:[address] ABDOMEN AND PELVIS Clinical Indication: Male, [...] * POC CREATININE, RAD (09/06/2018 9:40 AM FASHION DIRECTOR) Creatinine, POC 0.8 0.4 - 1.24 MG/DL MAIN LAB Performing Organization Address City/State/[facility] Number [facility] [address] [place] [address] in this encounter Visit Diagnoses Diagnosis Benign prostatic hyperplasia, unspecified whether lower urinary tract symptoms present in this encounter Administered Medications Action Date Dose Rate Site Medication Order MAR Action 09/06/2018 9:55 AM FASHION DIRECTOR 80 mL iohexol (OMNIPAQUE-350) 350 mg/mL Given injection 80 mL 80 mL, Intravenous, ONCE, 1 dose, Tue09/06/18 at 1000, NOTE: This is a HIGH ALERT Medication., 09/06/2018 9:55 AM FASHION DIRECTOR 50 mL sodium chloride PF 0.9% injection 50 mL Given 50 mL, Intravenous, ONCE, 1 dose, Tue09/06/18 at 1000, Intra-procedure (IR) in this encounter
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
--- OUTSIDE RECORDS SUMMARY | 2018-09-24 20:13 | XMS REPORT | Encounter Summary ---
Author Author [facility] Organization [facility] Address Unknown Phone Unavailable Care Team Providers Care Dinner Cook Name Role Phone Rudolph Bragg DO Unavailable Yari Antonio MA Unavailable Unavailable Melissa Taylor APRN Unavailable Shun Donohue MD Unavailable Unavailable No Pcp, Na PCP Unavailable Encounter Details Care Team Description Date Type Department Edward Stinson MD [address] [place] [address] Benign prostatic hyperplasia with lower urinary tract symptoms 06/29/2018 Hospital Clinlab Encounter [facility] [address] [place] [address] Social History Date Tobacco Use Types Packs/Day [...] Take by 0 (CALCIUM 500 PO) mouth. dexamethasone (DECADRON) Take 4 mg by 0 [...] mouth at bedtime as needed for Sleep. 07/27/2018 enoxaparin (LOVENOX) 40 Inject 40 mg 0 mg injection syringe under the skin every 12 hours. 07/27/2018 magnesium hydroxide (MILK Take by 0 OF MAGNESIA PO) mouth. 07/27/2018 polyethylene glycol 3350 Take 17 g by 0 (MIRALAX) 17 g packet mouth daily. 07/27/2018 simethicone (MYLICON) 80 Chew 80 mg by 0 mg chew tablet mouth every 6 hours as needed for Flatulence. 09/07/2018 tamsulosin (FLOMAX) 0.4 Take 0.4 mg 0 mg capsule by mouth daily. Do not crush, chew or open capsules. Take 30 minutes following the same meal each day. as of this encounter Progress Notes * Edward Stinson MD - 06/30/2018 9:46 AM CDT Please let patient know he had RBC on UA. Needs CT urogram and cystoscopy. Cystoscopy can be added to be dome at time of his prostate volume study in this encounter Plan of Treatment Not on fileas of this encounter Procedures Comments Procedure Name Priority Date/Time Associated Diagnosis URINALYSIS, MICROSCOPIC 06/29/2018 Enlarged prostate with 8:50 AM CDT lower urinary tract symptoms (LUTS) Straining to void in this encounter Results * URINALYSIS, MICROSCOPIC (06/29/2018 8:50 AM CDT) WBCs,UA 0-2 0 - 2 /HPF [facility] RBCs,UA 2-10 0 - 3 /HPF [facility] Squamous Epithelial Cells 0-2 0 - 5 [facility] Amorphous Sedimate,UA FEW [facility] Performing Organization Address City/State/Zipcode Phone Number [facility] [address] [place] [address] in this encounter Visit Diagnoses Diagnosis Enlarged prostate with lower urinary tract symptoms (LUTS) Hypertrophy of prostate with urinary obstruction and other lower urinary tract symptoms (LUTS) Straining to void Straining on urination in this encounter
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
[2018-09-24 20:17] LABS: ALANINE AMINOTRANSFERASE 16 U/L (0-55); ALKALINE PHOSPHATASE 101 U/L (40-136); BILIRUBIN,TOTAL 0.3 MG/DL (0.1-1.0); BUN/CREATININE RATIO 10; CALCIUM 9.5 MG/DL (8.5-10.1); CARBON DIOXIDE 27 MMOL/L (21-32); CHLORIDE 104 MMOL/L (98-107); GFR ESTIMATED > 60; GLUCOSE 102 MG/DL (70-105); SODIUM 143 MMOL/L (135-145); TOTAL PROTEIN 6.7 GM/DL (6.4-8.2)
[2018-09-24] MEDS ORDERED: NS 100 ML (IVPB) BAG IV ONE (21:15)
[2018-09-24] MEDS ORDERED: IOHEXOL 350 MG/ML 100 ML (OMNIPAQUE 350) VIAL IV ONE (21:15)
[2018-09-24] MEDS ORDERED: RECEIVED CONTRAST (Hold Metformin) IV SCH (21:15)
--- NOTE | 2018-09-24 21:39 | Diagnostic Imaging Report ---
PROCEDURE: CT abdomen and pelvis with contrast. TECHNIQUE: Multiple contiguous axial images were obtained through the abdomen and pelvis after administration of intravenous contrast. INDICATION: Nausea, pain around the prostate and anus. History of cholecystectomy, appendectomy. COMPARISON: 07/21/2018 FINDINGS: The lungs demonstrate dependent atelectasis bilaterally. Heart is normal in size. The liver demonstrates a focal area of segmental enhancement, which extends to the lateral border of segment 7 posteriorly, with a focal area of non-enhancement centrally. There are scattered areas of hypoattenuation in the liver which are too small to characterize, but may represent cysts. The spleen appears normal. The pancreas appears normal. The common bile duct is mildly prominent, likely due to postcholecystectomy changes. The adrenal glands are normal. There is a 5 mm nonobstructing calculus in the inferior right kidney. There are simple appearing cysts in the left kidney. There is no hydronephrosis. Bowel loops are nondistended without evidence of obstruction. The appendix is not seen. There is a moderate amount of stool in the colon. No significant free fluid or free air is seen. The prostate gland is mildly prominent. The urinary bladder wall appears thickened, even for a nondistended bladder. No rim-enhancing fluid collections are seen. No acute osseous abnormalities seen. There is internal fixation of the proximal left femur. IMPRESSION: 1. Mild prostatomegaly with thickening of the urinary bladder wall. This may be due to chronic outlet obstruction, however, recommend correlation with urinalysis to exclude infection. 2. Segmental peripheral enhancing lesion in segment 7 of the liver. This could represent transient hepatic attenuation difference, although the central non-enhancement is somewhat atypical, and could represent a cyst or hemangioma. Consider nonemergent followup MRI with hepatic contrast protocol, or short interval followup CT. 3. Right nephrolithiasis. Dictated by: Dictated on workstation # [id number]
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
[2018-09-24] MEDS ORDERED: CIPROFLOXACIN 500 MG (CIPRO) TABLET PO ONE (22:30)
[2018-09-24] MEDS ORDERED: CIPR-225 PO (22:30)
[2018-09-24] MEDS ORDERED: KETOROLAC 30 MG/ML VIAL IVP ONE (22:30)
[2018-09-24 22:47] VITALS: BP 131/81
== END 2018-09-24 22:47 | disposition home or self-care (01) ==
LOC: EDUNIT# 19:24 → ER 19:26
DX: K62.89 Other specified diseases of anus and rectum (principal); K76.89 Other specified diseases of liver; I10 Essential (primary) hypertension; F41.9 Anxiety disorder, unspecified; Z87.448 Personal history of other diseases of urinary system; Z88.0 Allergy status to penicillin; Z87.891 Personal history of nicotine dependence; Z90.49 Acquired absence of other specified parts of digestive tract; Z98.890 Other specified postprocedural states
CPT/HCPCS: 36415; 74177; 80053; 81000; 85025; 86141; 87088; 87491; 87591; 96374; 96375

== ENCOUNTER 2018-09-28 05:35 | Outpatient (CLI) | payer MEDICARE, OTHER ==
[~2018-09-28] VITALS: Ht 185.4 cm; Wt 64.4 kg
[~2018-09-28 05:35] MED LIST changes: +CIPR-225 PO
[2018-09-28] MEDS ORDERED: OXYC10TA7 PO (09:35)
[2018-09-28] MEDS ORDERED: FLUO20CA42 PO (09:35)
[2018-09-28] MEDS ORDERED: FINA5TAB6 PO (09:35)
[2018-09-28] MEDS ORDERED: MELO15TA14 PO (20:36)
[2018-09-28] MEDS ORDERED: HYDR30SU6 RC (20:36)
== END 2018-09-28 15:00 | disposition home or self-care (01) ==
LOC: PREOP 05:35
PROVIDERS: ATTEND Surgery
DX: Z01.818 Encounter for other preprocedural examination (principal)

== ENCOUNTER 2018-09-28 18:28 | Emergency (ER) | payer OTHER ==
[~2018-09-28] VITALS: Ht 185.4 cm; Wt 65.8 kg
[~2018-09-28 18:28] MED LIST changes: +FINA5TAB6 PO; +FLUO20CA42 PO; +OXYC10TA7 PO
--- OUTSIDE RECORDS SUMMARY | 2018-09-28 18:33 | XMS REPORT | Encounter Summary ---
Author Author [facility] Organization [facility] Address Unknown Phone Unavailable Care Team Providers Care Director Of Accounting Name Role Phone Rudolph Bragg DO Unavailable Yari Antonio MA Unavailable Unavailable Melissa Taylor APRN Unavailable Shun Donohue MD Unavailable Unavailable No Pcp, Na PCP Unavailable Encounter Details Care Team Description Date Type Department Rosalino Deras MD [address] [place] [address] 09/07/2018 Hospital Clinlab Encounter [place] [address] [place] [address] Social History Date Tobacco Use Types Packs/Day [...] Routine 09/07/2018 Benign prostatic ANTIGEN-PSA 11:40 AM GOVERNMENT SERVICES PROFESSIONAL hyperplasia (BPH) with straining on urination in this encounter Results * PROSTATIC SPECIFIC ANTIGEN-PSA (09/07/2018 11:40 AM GOVERNMENT SERVICES PROFESSIONAL) Prostatic Specific 0.20 <4.01 NG/ML [facility] Antigen Comment: REFERENCE RANGES AGEPSA VALUE <50<=1.5 50-54 <=2.0 55-59 <=3.0 60-69 <=4.0 70+<=6.0 Specimen Blood Performing Organization Address City/State/Zipcode Phone Number [facility]IN [facility] [address] [place] [address] in this encounter Visit Diagnoses Diagnosis Benign prostatic hyperplasia (BPH) with straining on urination in this encounter
--- OUTSIDE RECORDS SUMMARY | 2018-09-28 18:33 | XMS REPORT | Clinical Summary ---
Author Author [facility] Organization [facility] Address Unknown Phone Unavailable Care Team Providers Care Barrel And Receiver Aligner Name Role Phone Rudolph Bragg DO Unavailable Yari Antonio MA Unavailable Unavailable Melissa Taylor APRN Unavailable Shun Donohue MD Unavailable Unavailable No Pcp, Na PCP Unavailable Source Comments Some departments are not documenting in the electronic medical record. If you do not see the information that you expected, contact Release of Information in the Health Information Management department at [phone] for further assistance in locating additional records.[facility] Allergies Comments Active Allergy Reactions Severity [...] Taken Vital Sign Reading 09/07/2018 10:42 AM X RAY PHYSICIAN Blood Pressure 117/66 09/07/2018 10:42 AM X RAY PHYSICIAN Pulse 66 03/12/2013 1:56 PM CDT Temperature 37.1 C (98.7 F) - Respiratory Rate - - Oxygen Saturation - - Inhaled Oxygen - Concentration 09/07/2018 10:42 AM X RAY PHYSICIAN Weight 66.7 kg (147 lb) 09/07/2018 10:42 AM X RAY PHYSICIAN Height 185.4 cm (6' 1") 09/07/2018 10:42 AM X RAY PHYSICIAN Body Mass Index 19.39 Plan of Treatment [...] Routine 09/07/2018 Benign prostatic ANTIGEN-PSA 11:40 AM X RAY PHYSICIAN hyperplasia (BPH) with straining on urination [place] CYSTOURETHROSCOPY Routine 09/07/2018 Benign localized 10:00 AM X RAY PHYSICIAN hyperplasia of prostate without urinary obstruction and other lower urinary tract symptoms (LUTS) TRANSRECTAL US CLINIC Routine 09/07/2018 Benign prostatic 10:00 AM X RAY PHYSICIAN hyperplasia (BPH) with straining on urination CT ABD/PELV W CONTRAST Routine 09/06/2018 Benign prostatic 10:09 AM X RAY PHYSICIAN hyperplasia, unspecified whether lower urinary tract symptoms present POC CREATININE, RAD 09/06/2018 9:40 AM X RAY PHYSICIAN FEMUR 2 VIEWS LEFT Routine 07/27/2018 Closed displaced 1:25 PM X RAY PHYSICIAN segmental fracture of shaft of left femur with routine healing, subsequent encounter URINALYSIS, MICROSCOPIC 06/29/2018 Enlarged prostate with 8:50 AM CDT lower urinary tract symptoms (LUTS) Straining to void from Last 3 Months Results * PROSTATIC SPECIFIC ANTIGEN-PSA (09/07/2018 11:40 AM X RAY PHYSICIAN) Prostatic Specific 0.20 <4.01 NG/ML [facility] Antigen Comment: REFERENCE RANGES AGEPSA VALUE <50<=1.5 50-54 <=2.0 55-59 <=3.0 60-69 <=4.0 70+<=6.0 Specimen Blood Performing Organization Address City/State/Zipcode Phone Number [facility] [address] [place] [address] * TRANSRECTAL US CLINIC (09/07/2018 10:00 AM X RAY PHYSICIAN) Narrative Performed At Edward Stinson MD 09/08/20188:24 AM IN CLINIC Indications:BPH with lower urinary tract symptoms Procedures:Transrectal ultrasound [id number] Provider:Edward Stinson MD Complications:None. Indications for Procedure: [...] IN CLINIC * CYSTOSCOPY (09/07/2018 10:00 AM X RAY PHYSICIAN) Narrative Performed At Edward Stinson MD 09/08/20188:21 AM IN CLINIC Clinton Saldivar [id number] 09/08/2018 8:19 AM Pre-procedure diagnosis:Microhematuria, chronic pelvic pain Post-procedure diagnosis: same Procedures: Cystourethroscopy [id number] Surgeon: Edward Stinson MD Anesthesia: Local Specimens: [...] CT ABD/PELV W CONTRAST (09/06/2018 10:09 AM X RAY PHYSICIAN) Impressions Performed At 1. There is a [...] Interface, Radiant Results - 09/06/2018 3:[address] ABDOMEN AND PELVIS Clinical Indication: Male, [...] * POC CREATININE, RAD (09/06/2018 9:40 AM X RAY PHYSICIAN) Creatinine, POC 0.8 0.4 - 1.24 MG/DL [facility] Performing Organization Address City/State/Zipcode Phone Number [facility] [address] [place] [address] * FEMUR 2 VIEWS LEFT (07/27/2018 1:25 PM X RAY PHYSICIAN) Impressions Performed At FINDINGS/IMPRESSION: [facility] RAD RESULTS [...] Interface, Radiant Results - 07/27/2018 5:19 PM X RAY PHYSICIAN FEMUR 2 VIEWS LEFT CLINICAL HISTORY: Male, [...] Phone Number MAIN LAB [address] [place] [address] from Last 3 Months Insurance Payer Benefit Subscriber ID Type Phone Address Plan / Group MEDICARE MEDICARE xxxxxxxxxx Medicare PART [place] ([place]) [place] [address] Advance Directives Patient has advance care planning documents on file. For more information, please contact: [facility] [address] [place] [address]
--- OUTSIDE RECORDS SUMMARY | 2018-09-28 18:34 | XMS REPORT | Encounter Summary ---
Author Author [facility] Organization [facility] Address Unknown Phone Unavailable Care Team Providers Care Television Host Name Role Phone Rudolph Bragg DO Unavailable Yari Antonio MA Unavailable Unavailable Melissa Taylor APRN Unavailable Shun Donohue MD Unavailable Unavailable No Pcp, Na PCP Unavailable Reason for Referral * Consult, Test & Treat Referred By Contact Referred To Contact Status Reason Specialty Diagnoses / Procedures Ted Pérez MD [address] [place] [address] Closed Specialty Services Diagnoses Required Closed displaced segmental fracture of shaft of left femur with routine healing, subsequent encounter Reason for Visit * Reason Comments Follow Up left femur Encounter Details Care Team Description Date Type Department Ted Pérez MD [address] [place] [address] Closed displaced segmental fracture of shaft of left femur with routine healing, subsequent encounter (Primary Dx) 07/27/2018 Office Visit [facility] Physicians - Orthopedics [facility] [address] [place] [address] Social History Date Tobacco Use [...] Inhaled Oxygen - Concentration 07/27/2018 1:14 PM STRATEGIC ACCOUNT MANAGER Weight 62.1 kg (137 lb) 07/27/2018 1:14 PM STRATEGIC ACCOUNT MANAGER Height 185.4 cm (6' 1") 07/27/2018 1:14 PM STRATEGIC ACCOUNT MANAGER Body Mass Index 18.07 in this encounter Progress Notes * Ted Pérez MD - 07/27/2018 1:10 PM STRATEGIC ACCOUNT MANAGER Mr. Clinton Saldivar presents today for followup [...] questions prior to his departure from clinic. (DOC:[id number]) TEGIC ACCOUNT MANAGER in this encounter Plan of Treatment Order [...]
--- OUTSIDE RECORDS SUMMARY | 2018-09-28 18:34 | XMS REPORT | Encounter Summary ---
Author Author [facility] Organization [facility] Address Unknown Phone Unavailable Care Team Providers Care Rotary Drill Operator Helper Name Role Phone Rudolph Bragg DO Unavailable Yari Antonio MA Unavailable Unavailable Melissa Taylor APRN Unavailable Shun Donohue MD Unavailable Unavailable No Pcp, Na PCP Unavailable Encounter Details Care Team Description Date Type Department Ted Pérez MD [address] [facility] [address] [place] [address] Closed displaced segmental fracture of shaft of left femur with routine healing, subsequent encounter (Primary Dx) 07/26/2018 Orders Only [facility] Physicians - Orthopedics [facility] [address] [place] [address] Social History Date Tobacco Use [...] FEMUR 2 VIEWS LEFT (07/27/2018 1:25 PM [facility]OR [facility]) Impressions Performed At FINDINGS/IMPRESSION: [facility] RAD RESULTS [...] Interface, Radiant Results - 07/27/2018 5:19 PM DIRECTOR [facility] FEMUR 2 VIEWS LEFT CLINICAL HISTORY: Male, [...]
--- OUTSIDE RECORDS SUMMARY | 2018-09-28 18:34 | XMS REPORT | Encounter Summary ---
Author Author [facility] Organization [facility] Address Unknown Phone Unavailable Care Team Providers Care Dairy And Food Laboratory Assistant Name Role Phone Rudolph Bragg DO Unavailable Yari Antonio MA Unavailable Unavailable Melissa Taylor APRN Unavailable Shun Donohue MD Unavailable Unavailable No Pcp, Na PCP Unavailable Encounter Details Care Team Description Date Type Department Edward Stinson MD [address] [place] [address] Benign prostatic hyperplasia with lower urinary tract symptoms 06/29/2018 Hospital Clinlab Encounter [facility] [address] [place] [address] Social History Date Tobacco Use Types Packs/Day [...] City/State/Zipcode Phone Number [facility] [address] [place] [address] in this encounter Visit Diagnoses Diagnosis Enlarged prostate with lower urinary tract symptoms (LUTS) Hypertrophy of prostate with urinary obstruction and other lower urinary tract symptoms (LUTS) Straining to void Straining on urination in this encounter
--- OUTSIDE RECORDS SUMMARY | 2018-09-28 18:34 | XMS REPORT | Encounter Summary ---
Author Author [facility] Organization [facility] Address Unknown Phone Unavailable Care Team Providers Care Natural Fabricator Name Role Phone Rudolph Bragg DO Unavailable Yari Antonio MA Unavailable Unavailable Melissa Taylor APRN Unavailable Shun Donohue MD Unavailable Unavailable No Pcp, Na PCP Unavailable Reason for Referral * Radiology Services (Routine) Referred By Contact Referred To Contact Status Reason Specialty Diagnoses / Procedures Edward Stinson MD [address] [place] [address] Ca[address] [place] [address] No Auth Needed Radiology Diagnoses Benign prostatic hyperplasia, unspecified whether lower urinary tract symptoms present P rocedures CT ABD/PELV W CONTRAST CT ABD/PELV WO/W CONTRAST * Radiology Services (Routine) Referred By Contact Referred To Contact Status Reason Specialty Diagnoses / Procedures Edward Stinson MD [address] [place] [address] Ca[address] [place] [address] [place] [address] No Auth Needed Radiology Diagnoses Benign prostatic hyperplasia, unspecified whether lower urinary tract symptoms present P rocedures CT ABD/PELV W CONTRAST CT ABD/PELV WO/W CONTRAST Reason for Visit * Radiology Services (Routine) Referred By Contact Referred To Contact Status Reason Specialty Diagnoses / Procedures Edward Stinson MD [address] [place] [address] Ca2 Mri [address] [place] [address] No Auth Needed Radiology Diagnoses Benign prostatic hyperplasia, unspecified whether lower urinary tract symptoms present P rocedures CT ABD/PELV W CONTRAST CT ABD/PELV WO/W CONTRAST Encounter Details Care Team Description Date Type Department Edward Stinson MD [address] [place] [address] 09/06/2018 Hospital [facility] Radiology [address] [facility] MED OFFICE [place]G [address] [place] [address] Social History Date Tobacco Use [...] CONTRAST Routine 09/06/2018 Benign prostatic 10:09 AM NUCLEAR FUELS RESEARCH ENGINEER hyperplasia, unspecified whether lower urinary tract symptoms present POC CREATININE, RAD 09/06/2018 9:40 AM NUCLEAR FUELS RESEARCH ENGINEER in this encounter Results * CT ABD/PELV W CONTRAST (09/06/2018 10:09 AM NUCLEAR FUELS RESEARCH ENGINEER) Impressions Performed At 1. There is a [...] Interface, Radiant Results - 09/06/2018 3:00 PM NUCLEAR FUELS RESEARCH ENGINEER CT ABDOMEN AND PELVIS Clinical Indication: Male, [...] * POC CREATININE, RAD (09/06/2018 9:40 AM NUCLEAR FUELS RESEARCH ENGINEER) Creatinine, POC 0.8 0.4 - 1.24 MG/DL MAIN LAB Performing Organization Address City/State/[facility] Phone Number [facility] [address] [place] [address] in this encounter Visit Diagnoses Diagnosis Benign prostatic hyperplasia, unspecified whether lower urinary tract symptoms present in this encounter Administered Medications Action Date Dose Rate Site Medication Order MAR Action 09/06/2018 9:55 AM NUCLEAR FUELS RESEARCH ENGINEER 80 mL iohexol (OMNIPAQUE-350) 350 mg/mL Given injection 80 mL 80 mL, Intravenous, ONCE, 1 dose, Tue09/06/18 at 1000, NOTE: This is a HIGH ALERT Medication., 09/06/2018 9:55 AM NUCLEAR FUELS RESEARCH ENGINEER 50 mL sodium chloride PF 0.9% injection 50 mL Given 50 mL, Intravenous, ONCE, 1 dose, Tue09/06/18 at 1000, Intra-procedure (IR) in this encounter
--- OUTSIDE RECORDS SUMMARY | 2018-09-28 18:34 | XMS REPORT | Encounter Summary ---
Author Author [facility] Organization [facility] Address Unknown Phone Unavailable Care Team Providers Care Hvac Technician Name Role Phone Rudolph Bragg DO Unavailable Yari Antonio MA Unavailable Unavailable Melissa Taylor APRN Unavailable Shun Donohue MD Unavailable Unavailable No Pcp, Na PCP Unavailable Reason for Referral * Consult, Test & Treat (Routine) Referred By Contact Referred To Contact Status Reason Specialty Diagnoses / [place] [address] [place] [address] [facility] Level 2B [address] [place] [address] No Auth Needed Specialty Services Gastroenterology Diagnoses Required Rectal pain Reason for Visit * Reason Comments Other * Outpatient Surgery (Routine) Referred By Contact Referred To Contact Status Reason Specialty Diagnoses / [place] [address] [place] [address] [facility] Level 2A [address] [place] [address] No Auth Needed Urology Diagnoses Prostate Vol Study/cysto BERTHA P rocedures [place] CYSTOURETHROSCOPY PROCEDURE - 30 Encounter Details Care Team Description Date [place] [address] [place] [address] Benign localized hyperplasia of prostate without urinary obstruction and other lower urinary tract symptoms (LUTS) (Primary Dx); Rectal pain 09/07/2018 Procedure visit [facility] - [facility] Level 2A [address] [place] [address] Social History Date Tobacco Use [...] Taken Vital Sign Reading 09/07/2018 10:42 AM TOURIST HOME KEEPER Blood Pressure 117/66 09/07/2018 10:42 AM TOURIST HOME KEEPER Pulse 66 - Temperature - - Respiratory Rate - - Oxygen Saturation - - Inhaled Oxygen - Concentration 09/07/2018 10:42 AM TOURIST HOME KEEPER Weight 66.7 kg (147 lb) 09/07/2018 10:42 AM TOURIST HOME KEEPER Height 185.4 cm (6' 1") 09/07/2018 10:42 AM TOURIST HOME KEEPER Body Mass Index 19.39 in this encounter Procedure Notes * Edward Stinson MD - 09/07/2018 10:00 AM TOURIST HOME KEEPER Associated Order(s): CYSTOSCOPY Procedure(s): [place] CYSTOURETHROSCOPY Pre-Procedure Diagnose(s): Benign localized hyperplasia of prostate without urinary obstruction and other lower urinary tract symptoms (LUTS) [place] [id number] 09/08/2018 8:19 AM Pre-procedure diagnosis: Microhematuria, chronic pelvic pain Post-procedure diagnosis: same Procedures: Cystourethroscopy [id number] Surgeon: Edward Stinson MD Anesthesia: Local Specimens: [...] was normal. The procedure was then concluded. IST HOME KEEPER * Edward Stinson MD - 09/07/2018 10:00 AM TOURIST HOME KEEPER Associated Order(s): TRANSRECTAL US CLINIC Pre-Procedure Diagnose(s): Benign prostatic hyperplasia (BPH) with straining on urination Indications: BPH with lower urinary tract symptoms Procedures: Transrectal ultrasound 09473 Provider: Edward Stinson MD Complications: None. Indications [...] accepted. F/u 3 months Edward Stinson MD IST HOME KEEPER in this encounter Plan of Treatment Order [...] CLINIC Routine 09/07/2018 Benign prostatic 10:00 AM TOURIST HOME KEEPER hyperplasia (BPH) with straining on urination [place] CYSTOURETHROSCOPY Routine 09/07/2018 Benign localized 10:00 AM TOURIST HOME KEEPER hyperplasia of prostate without urinary obstruction and other lower urinary tract symptoms (LUTS) in this encounter Results * CYSTOSCOPY (09/07/2018 10:00 AM TOURIST HOME KEEPER) Narrative Performed At Edward Stinson MD 09/08/20188:21 AM IN CLINIC [place] [id number] 09/08/2018 8:19 AM Pre-procedure diagnosis:Microhematuria, chronic pelvic pain Post-procedure diagnosis: same Procedures: Cystourethroscopy [id number] Surgeon: Edward Stinson MD Anesthesia: Local Specimens: [...]
--- OUTSIDE RECORDS SUMMARY | 2018-09-28 18:34 | XMS REPORT | Encounter Summary ---
Author Author [facility] Organization [facility] Address Unknown Phone Unavailable Care Team Providers Care Manager Project Management Name Role Phone Rudolph Bragg DO Unavailable Yari Antnoio MA Unavailable Unavailable Melissa Taylor APRN Unavailable Shun Donohue MD Unavailable Unavailable No Pcp, Na PCP Unavailable Reason for Referral * Radiology Services (Routine) Referred By Contact Referred To Contact Status Reason Specialty Diagnoses / Procedures Edward Stinson MD [address] [place] [address] Ca2 Mri [address] [place] [address] No Auth Needed Radiology Diagnoses Benign prostatic hyperplasia, unspecified whether lower urinary tract symptoms present P rocedures CT ABD/PELV W CONTRAST CT ABD/PELV WO/W CONTRAST Reason for Visit * Reason Comments Results Encounter Details Care Team Description Date Type Department Edward Stinson MD [address] [place] [address] Results 06/30/2018 Telephone [facility] - [facility] Level 2A [address] [place] [address] Social History Date Tobacco Use [...] CT ABD/PELV W CONTRAST (09/06/2018 10:09 AM SETUP OPERATOR) Impressions Performed At 1. There is a [...] Interface, Radiant Results - 09/06/2018 3:[address] ABDOMEN AND PELVIS Clinical Indication: Male, [...]
--- OUTSIDE RECORDS SUMMARY | 2018-09-28 18:34 | XMS REPORT | Encounter Summary ---
Author Author [facility] Organization [facility] Address Unknown Phone Unavailable Care Team Providers Care Gas Meter Mechanic Name Role Phone Rudolph Bragg DO Unavailable Yari Antonio MA Unavailable Unavailable Melissa Taylor APRN Unavailable Shun Donohue MD Unavailable Unavailable No Pcp, Na PCP Unavailable Encounter Details Care Team Description Date Type Department Ted Pérez MD [address] [facility] [address] [place], [place] [id number] 07/27/2018 Hospital [facility] Radiology [address] [facility] MED OFFICE BLDG [address]LO[address] [place], [place] [id number] Social History Date Tobacco Use Types Packs/Day [...] LEFT Routine 07/27/2018 Closed displaced 1:25 PM SOLID WASTE ENGINEER segmental fracture of shaft of left femur with routine healing, subsequent encounter in this encounter Results * FEMUR 2 VIEWS LEFT (07/27/2018 1:25 PM SOLID WASTE ENGINEER) Impressions Performed At FINDINGS/IMPRESSION: [facility] RESULTS [...] Interface, Radiant Results - 07/27/2018 5:19 PM SOLID WASTE ENGINEER FEMUR 2 VIEWS LEFT CLINICAL HISTORY: Male, [...]
--- OUTSIDE RECORDS SUMMARY | 2018-09-28 18:34 | XMS REPORT | Encounter Summary ---
Author Author [facility] Organization [facility] Address Unknown Phone Unavailable Care Team Providers Care Stretch Machine Operator Name Role Phone Rudolph Bragg DO Unavailable Yari Antonio MA Unavailable Unavailable Melissa Taylor APRN Unavailable Shun Donohue MD Unavailable Unavailable No Pcp, Na PCP Unavailable Reason for Visit * Reason Comments Other enlarged prostate * Consult, Test & Treat (Routine) Referred By Contact Referred To Contact Status Reason Specialty Diagnoses / [place] [address] [place] [address] No Auth Needed Urology Diagnoses new pt/enlarged prostate/recs [facility] of [facility] NEW PATIENT Encounter Details Care Team Description Date Type Department Edward Stinson MD [address] [place] [address] Benign prostatic hyperplasia (BPH) with straining on urination (Primary Dx) 06/29/2018 Office Visit [facility] Physicians - [facility] Level 2A [address] [place] [address] Social History Date Tobacco Use [...] previously been evaluated by Dr. Alvares in [place], [place], as well as by Dr. Donohue at [facility]. Recently he also suffered a femoral fracture [...] * PROSTATIC SPECIFIC ANTIGEN-PSA (09/07/2018 11:40 AM WATER PIPE INSTALLER) Prostatic Specific 0.20 <4.01 NG/ML [facility] Antigen Comment: REFERENCE RANGES AGEPSA VALUE <50<=1.5 50-54 <=2.0 55-59 <=3.0 60-69 <=4.0 70+<=6.0 Specimen Blood Performing Organization Address City/State/Zipcode Phone Number [facility] [address] [place] [address] * TRANSRECTAL US CLINIC (09/07/2018 10:00 AM WATER PIPE INSTALLER) Narrative Performed At Edward Stinson MD 09/08/20188:24 AM IN CLINIC Indications:BPH with lower urinary tract symptoms Procedures:Transrectal ultrasound [id number] Provider:Edward Stinson MD Complications:None. Indications for Procedure: [...]
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
[2018-09-28] MEDS ORDERED: KETOROLAC 30 MG/ML VIAL IVP STA (19:22)
[2018-09-28 19:36] LABS: BILIRUBIN,URINE NEGATIVE (NEGATIVE); CLARITY,URINE CLEAR; COLOR,URINE YELLOW; GLUCOSE, URINE (UA) NEGATIVE (NEGATIVE); KETONES,URINE NEGATIVE (NEGATIVE); LEUKOCYTE ESTERASE ,URINE 1+ (NEGATIVE); NITRITE,URINE NEGATIVE (NEGATIVE); PH,URINE 7 (5-9); PROTEIN,URINE NEGATIVE (NEGATIVE); UROBILINOGEN,URINE NORMAL (NORMAL)
[2018-09-28 19:39] LABS: BASOPHILS % (AUTO) 0 % (0-10); EOSINOPHILS # (AUTO) 0.1 10^3/uL (0.0-0.3); EOSINOPHILS % (AUTO) 1 % (0-10); HEMATOCRIT 43 % (40-54); HEMOGLOBIN 14.6 G/DL (13.3-17.7); LYMPHOCYTES # (AUTO) 1.2 X 10^3 (1.0-4.0); LYMPHOCYTES % (AUTO) 15 % (12-44); MEAN CORPUSCULAR HEMOGLOBIN 32 PG (25-34); MEAN CORPUSCULAR HGB CONC 34 G/DL (32-36); MEAN CORPUSCULAR VOLUME 94 FL (80-99); MONOCYTES # (AUTO) 0.5 X 10^3 (0.0-1.0); MONOCYTES % (AUTO) 7 % (0-12); NEUTROPHILS # (AUTO) 6.1 X 10^3 (1.8-7.8); NEUTROPHILS % (AUTO) 78 % (42-75); PLATELET COUNT 252 10^3/uL (130-400); RED BLOOD COUNT 4.62 10^6/uL (4.35-5.85); RED CELL DISTRIBUTION WIDTH 13.8 % (10.0-14.5); WHITE BLOOD COUNT 7.9 10^3/uL (4.3-11.0)
[2018-09-28 19:50] LABS: AMPHETAMINE SCREEN, URINE NEGATIVE (NEGATIVE); BARBITURATE SCREEN URINE NEGATIVE (NEGATIVE); BENZODIAZEPINES SCREEN URINE POSITIVE (NEGATIVE); CANNABINOID SCREEN, URINE NEGATIVE (NEGATIVE); COCAINE SCREEN URINE NEGATIVE (NEGATIVE); METHADONE STAT NEGATIVE (NEGATIVE); METHAMPHETAMINE SCREEN URINE S NEGATIVE (NEGATIVE); OPIATE SCREEN URINE NEGATIVE (NEGATIVE); OXYCODONE STAT POSITIVE (NEGATIVE); PROPOXYPHENE STAT NEGATIVE (NEGATIVE); TRICYCLIC ANTIDEPRESSANTS SCRE NEGATIVE (NEGATIVE)
[2018-09-28 19:52] LABS: WBC,URINE RARE /HPF
[2018-09-28 19:55] LABS: ALANINE AMINOTRANSFERASE 16 U/L (0-55); ALBUMIN 4.2 GM/DL (3.2-4.5); ALKALINE PHOSPHATASE 115 U/L (40-136); BILIRUBIN,TOTAL 0.5 MG/DL (0.1-1.0); BUN/CREATININE RATIO 11; CALCIUM 9.5 MG/DL (8.5-10.1); CARBON DIOXIDE 28 MMOL/L (21-32); CHLORIDE 104 MMOL/L (98-107); CREATININE SERUM 0.82 MG/DL (0.60-1.30); GFR ESTIMATED > 60; GLUCOSE 102 MG/DL (70-105); POTASSIUM 4.3 MMOL/L (3.6-5.0); SODIUM 141 MMOL/L (135-145)
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
[2018-09-28] MEDS ORDERED: MELO15TA14 PO (20:36)
[2018-09-28] MEDS ORDERED: HYDR30SU6 RC (20:36)
[2018-09-28 20:45] VITALS: BP 121/77
== END 2018-09-28 20:45 | disposition home or self-care (01) ==
LOC: EDUNIT# 18:28 → ER 18:29
DX: K68.9 Other disorders of retroperitoneum (principal); N39.0 Urinary tract infection, site not specified; N42.89 Other specified disorders of prostate; I10 Essential (primary) hypertension; K21.9 Gastro-esophageal reflux disease without esophagitis; F41.9 Anxiety disorder, unspecified; Z87.448 Personal history of other diseases of urinary system; Z88.0 Allergy status to penicillin; Z79.51 Long term (current) use of inhaled steroids; Z87.891 Personal history of nicotine dependence; Z90.49 Acquired absence of other specified parts of digestive tract; Z98.890 Other specified postprocedural states
CPT/HCPCS: 36415; 72131; 72192; 80053; 80306; 81000; 85025; 96374

== ENCOUNTER 2018-10-02 07:27 | Day surgery (SDC) | payer OTHER ==
[~2018-10-02] VITALS: Ht 185.4 cm; Wt 62.2 kg
[~2018-10-02 07:27] MED LIST changes: +HYDR30SU6 RC; +MELO15TA14 PO
[2018-10-02 07:40] VITALS: BP 135/90
[2018-10-02] MEDS ORDERED: LACTATED RINGERS 1,000 ML IV PRN (07:41)
[2018-10-02] MEDS ORDERED: VANCOMYCIN INJECTION 1,000 MG in NS (IVPB) 250 ML IV ONE (07:45)
[2018-10-02] MEDS ORDERED: ONDANSETRON 4 MG/2 ML (SDV) Z0FRAN ONE (08:10)
[2018-10-02] MEDS ORDERED: FAMOTIDINE 20MG/2ML IV (PEPCID) ONE (08:10)
[2018-10-02] MEDS ORDERED: FAMOTIDINE 20MG/2ML IV (PEPCID) IV ONE (08:15)
[2018-10-02] MEDS ORDERED: ONDANSETRON 4 MG/2 ML (SDV) Z0FRAN IV ONE (08:15)
--- NOTE | 2018-10-02 08:28 | Progress Note-Pre Operative ---
Pre-Operative Progress Note H&P Reviewed The H&P was reviewed, patient examined and no changes noted. Date Seen by Provider: Sep 26, 2018 Time Seen by Provider: 11:20 Date H&P Reviewed: Oct 02, 2018 Time H&P Reviewed: 08:27 Pre-Operative Diagnosis: rectal pain SELENA HOWELL MD Oct 02, 2018 08:28
[2018-10-02] MEDS ORDERED: proPOfol 200 MG/20 ML (DIPRIVAN) VIAL IV ONE (09:00)
[2018-10-02] MEDS ORDERED: LIDOCAINE PF 2% 5 ML (XYLOCAINE) VIAL ONE (09:00)
[2018-10-02] MEDS ORDERED: MIDAZOLAM 2 MG/2 ML (VERSED) VIAL ONE (09:01)
[2018-10-02] MEDS ORDERED: fentaNYL INJECTION 100 MCG/2 ML AMP ONE (09:01)
--- NOTE | 2018-10-02 09:43 | Operative Report ---
Operative Report Date of Procedure/Surgery Oct 02, 2018 Surgeon (s) SELENA HOWELL MD Key Account Director (s): N/A Post-Operative Diagnosis no fissure. Normal colonoscopy Procedure Performed examination under anesthetic Colonoscopy to cecum Description of Procedure Anesthesia Type: MAC Estimated blood loss (mL): none Specimen(s) collected/removed none Description of the Procedure Indication for the procedure: This gentleman presented with severe rectal/ perianal pain. Diagnosis could not be established by bedside clinical examination in the office. Therefore, it was felt reasonable to perform an examination under anesthetic, mainly with a view to establishing a diagnosis and perform colonoscopy at the same time. Informed consent was obtained after reviewing the procedure in detail. Description of procedure: He underwent a mechanical bowel preparation and was placed in lithotomy position in the operating room. Sedation was acute by our SALES REPRESENTATIVE CONSULTANT. Examination under anesthetic did not reveal any fistula. Very mild degree of hemorrhoids without any thrombosis was identified. Digital examination was unremarkable as well. The colonoscope was then introduced in the rectum and advanced all the way up to cecum. The quality of bowel preparation was excellent. It was then withdrawn slowly and the mucosa examined in a systematic fashion. There was no abnormality. He tolerated the procedure well and was taken to the nursing area in a stable condition. Impression: Severe rectal/perianal pain. No lesion identified. Normal colonoscopy. Findings of the Procedure See op report Allergies and Home Medications Allergies Coded Allergies: Penicillins (Verified Allergy, Mild, RASH, 09/28/18) Home Medications Alprazolam 0.25 Mg Tablet, 0.25 MG PO DAILY, (Reported) Calcium Carbonate 400 Mg Tab.chew, 2 TAB.CHEW PO TID PRN for INDIGESTION, ( Reported) Finasteride 5 Mg Tablet, 5 MG PO DAILY, (Reported) Fluoxetine HCl 20 Mg Capsule, 20 MG PO DAILY, (Reported) Hydrocortisone Acetate 30 Mg Supp.rect, 30 MG RC BID Prescribed by: KLEVER HERRERA on 09/28/182035 Melatonin 5 Mg Tablet, 10 MG PO HS, (Reported) Meloxicam 15 Mg Tablet, 15 MG PO DAILY Prescribed by: KLEVER HERRERA on 09/28/182035 Oxycodone HCl 10 Mg Tablet, 10 MG PO BID, (Reported) Polyethylene Glycol 3350 17 Gm Powd.pack, 17 GM PO DAILY PRN for CONSTIPATION- 2ND LINE, (Reported) Tamsulosin HCl 0.4 Mg Cap, 0.8 MG PO HS, (Reported) TAKES 2 (0.4MG) CAPSULES Patient Home Medication List Home Medication List Reviewed: Yes SELENA HOWELL MD Oct 02, 2018 09:43
--- NOTE | 2018-10-02 09:50 | Discharge Inst-Simple/Standard ---
Discharge Inst-Standard Discharge Medications New, Converted or Re-Newed RX: Other Patient Instructions/Follow Up Plan of Care/Instructions/FU: follow-up with his primary Activity as Tolerated: Yes Discharge Diet: No Restrictions SELENA HOWELL MD Oct 02, 2018 09:50
[2018-10-02] MEDS ORDERED: HYDROmorphone 2 MG/ML VIAL (DILAUDID) ONE (09:52)
[2018-10-02] MEDS ORDERED: HYDROmorphone 2 MG/ML VIAL (DILAUDID) IV ONE (10:00)
[2018-10-02] MEDS ORDERED: ONDANSETRON 4 MG/2 ML (SDV) Z0FRAN IVP PRN (10:00)
[2018-10-02 10:15] VITALS: BP 126/89
[2018-10-02 10:45] VITALS: BP 140/93
--- NOTE | 2018-10-02 11:09 | Anesthesia-General Post-Op ---
MAC Patient Condition Mental Status/LOC: Same as Preop Cardiovascular: Satisfactory Nausea/Vomiting: Absent Respiratory: Satisfactory Pain: Controlled Complications: Absent Post Op Complications Complications None Follow Up Care/Instructions Patient Instructions None needed. Anesthesiology Discharge Order Discharge Order Patient is doing well, no complaints, stable vital signs, no apparent adverse anesthesia problems. No complications reported per nursing. ERNIE SELBY CRNA Oct 02, 2018 11:09
[2018-10-02 11:30] VITALS: BP 140/93
== END 2018-10-02 11:32 | disposition home or self-care (01) ==
LOC: SDC 07:27
PROVIDERS: ATTEND Surgery
DX: K62.89 Other specified diseases of anus and rectum (principal); K64.9 Unspecified hemorrhoids; Z11.2 Encounter for screening for other bacterial diseases; Z88.0 Allergy status to penicillin; Z79.899 Other long term (current) drug therapy; K21.9 Gastro-esophageal reflux disease without esophagitis; N40.0 Benign prostatic hyperplasia without lower urinary tract symptoms; F41.9 Anxiety disorder, unspecified
CPT/HCPCS: 87081